=== PATIENT | female | born 2005 | race Caucasian/White ===

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

== ENCOUNTER 2023-04-19 18:12 | Emergency (ER) | payer OTHER ==
--- OUTSIDE RECORDS SUMMARY | 2023-04-19 18:16 | XMS REPORT | Continuity of Care Document ---
:2005 Author Organization [facility] t Address [address] [place] [address] [place] [id number] Care Team Providers Name Role Phone SARMIENTOCLARE Miranda Elias Primary Care Physician Unavailable AURA ATKINSON Attending Clinician Unavailable Aura Atkinson MD Attending Clinician Farhat Page Attending Clinician FARHAT LEMA Attending Clinician Unavailable AURA ATKINSON Admitting Clinician Unavailable Payers Payer Name Policy Type Policy Number Effective Date Expiration Date Critical access hospital [id number] 2021 CHOICE MEDICAID 00:00:00 Problems Condition Condition Condition Status Onset Resolution Last Treating Co mments Source Name Details Category Date Date Treatment Clinician Date No known No known Disease Unive rs active active ity of problems problems [facility] Allergies, Adverse Reactions, Alerts Allergy Allergy Status Severity Reaction(s) Onset Inactive Treating Comm ents Source Name Type Date Date Clinician NO KNOWN Drug Active Univers ALLERGIE Class ity of [facility] Social History Social Habit Start Date Stop Date Quantity Comments Source Exposure to 2021-11-06 2021-11-16 Not sure [facility] SARS-CoV-2 (event) 00:00:00 21:37:00 Medica l Branch Sex Assigned At [birth year] [facility] 00:00:00 00:00:00 Medical Branch Smoking Status Start Date Stop Date Source Unknown if ever smoked [facility] Medications Ordered Filled Start Stop Current Ordering Indication Dosage Frequency Signature Comments Components Source Medication Medication Date Date Medication? Clinician (SIG) Name Name lidocaine No 10mL 10 mL, Unive rs 2% viscous 11-17 Oral, ity of (LIDOCAINE 07:15: 06:09 ONCE, 1 [place] as VISCOUS) 2 00 :00 dose, On Medic al % solution [place] [facility] 10 mL 11/17/21 at 0215, ANAT iopamidol No [id number] 120mL 120 mL, Univers (ISOVUE 11-17 Intravenou ity o f 370-500 mL) 06:15: 05:06 s, ONCE, 1 [place] injection 00 :00 dose, On Medica l 120 mL [place] [facility] 11/17/21 at 0115, Routine FENTanyl PF No 50ug 50 mcg, Un janie (SUBLIMAZE 11-17 Slow IV ity o f (PF)) 05:30: 04:38 Push, [place] injection 00 :00 ONCE, 1 Medical 50 mcg dose, On Branch [place] 11/17/21 at 0030, Routine cefTRIAXone No 1000mg 1,000 mg, Univers (ROCEPHIN) 11-17 IV ity of 1,000 mg in 05:30: 06:10 Piggyback, [place] NaCl 0.9% 00 :00 ONCE, 1 Medical (NS) 50 mL dose, On Bran h MINI-BAG [place] 11/17/21 at 0030, Administer over 30 Minutes, 50 mL
Reas on for Anti-Infec tive: Documented Infection< br>Documen ru Infection Site: Urine<br&g t;Duration of Therapy: Other (see Comments) ondansetron 2021- No 4mg 4 mg, Slow Univers (ZOFRAN 11-17 IV Push, ity of (PF)) 05:00: 03:59 ONCE, 1 [place] injection 4 00 :00 dose, On Medi vanessa mg [place] [facility] 11/17/21 at 0000, ANAT ketorolac 2021- No 30mg 30 mg, Unive rs (TORADOL) 5- 05-26 Slow IV ity of injection 04:45: 03:46 Push, [place] 30 mg 00 :00 ONCE, 1 Medical dose, On Branch Sun11/16/21 at 2345, Routine
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 ondansetron Yes [id number] 4mg Take 1 Univers (ZOFRAN) 4 5-26 tablet by ity of mg tablet 00:00: mouth [place] 00 every 8 Medical (eight) Branch hours as needed for Nausea and Vomiting (N/V). dicyclomine Yes [id number] 20mg Take 1 Univers 20 mg 5-26 tablet by ity of tablet 00:00: mouth [place] 00 every 6 Medical (six) Branch hours as needed for Abdominal pain. amoxicillin 0 Yes [id number] 1{tbl} Take 1 Univers -clavulanat 5-26 tablet by ity of e 875-125 00:00: mouth [place] mg per 00 every 12 Medical tablet (twelve) Branch hours. doxycycline 0 2020- No 100mg 100 mg, U nivers hyclate 08-08-14 Oral, ity of (Vibramycin 01:45: 00:40 ONCE, [...] mg 00 :00 1 dose, Medical Sat Branch 08/07/20 at 1945, ANAT
Re ason for Anti-Infec tive: Documented Infection< br>Documen ru Infection Site: Pelvic
Duration of Therapy: 7 days ondansetron 2020- No 4mg 4 mg, Univ ers (ZOFRAN-ODT 08-08 Oral, ity of ) 01:15: 00:20 ONCE, 1 [place] disintegrat 00 :00 dose, Sat Med ical ing tablet 08/07/20 at [facility] nc 4 mg 1915, Routine dicyclomine 2020- [...] Medical 08/07/20 at Branch 1730, STAT ondansetron 2020- No 4mg 4 mg, Slow Univers (ZOFRAN 2-13 -13 IV Push, ity of (PF)) 23:30: 23:30 [...] dose, 08/07/20 at 1630, ANAT ondansetron Yes [id number] 4mg Take 1 Univers (ZOFRAN 2-13 tablet by ity of ODT) 4 mg 00:00: mouth [place] disintegrat 00 every 8 Medic al ing tablet (eight) Branch hours as needed for Nausea and Vomiting (N/V). ondansetron Yes [id number] 4mg Take 1 Univers (ZOFRAN 2-13 tablet by ity of ODT) 4 mg 00:00: mouth [place] disintegrat 00 every 8 Medic al ing tablet (eight) Branch hours as needed for Nausea and Vomiting (N/V). doxycycline 2020- No [id number] 100mg Take 1 Univers hyclate 100 08-07 capsule by i ty of mg capsule 00:00: 05:59 mouth 2 [place]areem as 00 :00 (two) Medical times [place] daily for 14 days. Vital Signs Vital Name Observation Time Observation Value Comments Source Systolic blood 2021-11-17 06:00:00 143 mm[Hg] Univer sity [facility] Diastolic blood 2021-11-17 06:00:00 96 [facility]Hg[facility] Heart rate 2021-11-17 06:00:00 87 /min Universi ty [facility] Respiratory rate 2021-11-17 06:00:00 18 /min [facility] Oxygen saturation in 2021-11-17 06:00:00 99 /min [facility] Arterial blood by [facility] Pulse oximetry Branch Body temperature 2021-11-17 02:41:00 37.06 Reina [facility] Body height 2021-11-17 02:41:00 154.9 cm Universi ty [facility] Body weight 2021-11-17 02:41:00 68.04 kg Universi ty [facility] BMI 2021-11-17 02:41:00 28.34 kg/m2 Universi ty [facility] Body mass index 2021-11-17 02:41:00 91.87 % Unive rsity of (BMI) [Percentile] [facility] ica Per age and sex Branch Oxygen saturation in 2020-08-07 23:15:00 100 /min University of Arterial blood by [facility] Pulse oximetry Branch Systolic blood 2020-08-07 23:15:00 123 mm[Hg] Univer sity of pressure [facility] Diastolic blood 2020-08-07 23:15:00 92 mm[Hg] Unive rsity of pressure [facility] Heart rate 2020-08-07 23:15:00 79 /min Universi ty [facility] Respiratory rate 2020-08-07 23:15:00 20 /min Univ ersity [facility] Body temperature 2020-08-07 22:13:00 36.67 Reina [facility] ersity of [facility] Body weight 2020-08-07 22:13:00 66.679 kg Universi ty [facility] Oxygen saturation in 2020-08-07 23:15:00 100 /min University of Arterial blood by [facility] Pulse oximetry Branch Systolic blood 2020-08-07 23:15:00 123 mm[Hg] Univer sity of pressure [facility] Diastolic blood 2020-08-07 23:15:00 92 mm[Hg] Unive rsity of pressure [facility] Heart rate 2020-08-07 23:15:00 79 /min Universi ty [facility] Respiratory rate 2020-08-07 23:15:00 20 /min Univ ersity [facility] Body temperature 2020-08-07 22:13:00 36.67 Reina [facility] ersity of [facility] Body weight 2020-08-07 22:13:00 66.679 kg Universi ty [facility] Procedures Procedure Date / Time Performed Performing Clinician Sourc e CT ABDOMEN PELVIS W 2021-11-17 05:08:00 Aura Atkinson Univers ity of [facility] CBC WITH DIFF 2021-11-17 03:58:00 Aura Atkinson [facility] URINALYSIS 2021-11-17 03:39:00 Aura Atkinson [facility] POCT TEST 2021-11-17 03:39:00 uAra Atkinson [facility] Medical [place] LIPASE 2021-11-17 03:11:00 Aura Atkinson [facility] COMP. METABOLIC PANEL 2021-11-17 03:11:00 Aura Atkinson [facility] ([id number]) Medical Branch EBV-MONONUCLEOSIS 2021-11-17 03:11:00 Aura Atkinson [facility] SCREEN [facility] RAPID STREP SCREEN FOR 2021-11-17 03:11:00 [facility] [place] RAPID INFLUENZA A/B 2021-11-17 03:11:00 Aura Atkinson [facility] COVID-19 (ID NOW RAPID 2021-11-17 03:11:00 Aura Atkinson [facility] TESTING) Medical Branch NOTICE OF PRIVACY 2021-11-17 02:28:47 Doctor Unassigned, No [facility] PRACTICES Name Medical [place] CONSENT/REFUSAL FOR 2021-11-17 02:27:24 Doctor Unassigned, No [facility] DIAGNOSIS AND Name Medical Branch TREATMENT URINALYSIS 2020-08-07 23:45:00 Farhat Lema [facility] CT ABDOMEN PELVIS W 2020-08-07 23:32:36 Farhat Lema [facility] CONTRAST [facility] Branch LIPASE 2020-08-07 22:36:00 Farhat Lema [facility] TEST, SERUM 2020-08-07 22:36:00 Farhat Lema [facility] HEPATIC FUNCTION PANEL 2020-08-07 22:36:00 Farhat Lema [facility] ([id number]) Medical Branch (ALB,T.PRO,BILI T,BU/BC,ALT,AST,ALK PHOS) BASIC METABOLIC PANEL 2020-08-07 22:36:00 Farhat Lema [facility] (NA, K, CL, CO2, Medical Branch GLUCOSE, BUN, CREATININE, CA) CBC WITH DIFF 2020-08-07 22:36:00 Farhat Lema [facility] CONSENT/REFUSAL FOR 2020-08-07 22:03:28 Doctor Unassigned, No [facility] DIAGNOSIS AND Name [facility] TREATMENT NOTICE OF PRIVACY 2020-08-07 22:03:13 Doctor Unassigned, No Univ [facility] PRACTICES Name [facility] Branch Encounters Start End Encounter Admission Attending Care Care Encounter Source Date/Time Date/Time Type Type Clinicians Facility Department ID 2021-11-16 2021-11-17 [facility] [id number] Univers 21:36:00 [facility]23[facility] 2021-11-16 2021-11-17 Emergency [facility] [id number] Univers 21:36:00 01:23:00 Jose Raulmare [facility] [id number] ity [facility] [id number] [facility] [id number] [address] 2020-08-07 2020-08-07 Emergency [facility] [id number] 16:15:00 19:14:00 Farhat [place] [id number] [place] [id number] [place] [id number] 2020-08-07 2020-08-07 Emergency [facility] [id number] Univers 16:15:00 19:14:00 Farhat [place] [id number] i ty of [place] [id number] [facility] [id number] [address] 2020-08-07 2020-08-07 Emergency X [facility] ERT [id number] Univers 16:03:00 16:03:[address] [facility] Results Test Description Test Time Test Comments Results Result Comments Source CBC WITH DIFF 2021-11-17 04:50:00 Test Item Value Reference Range Interpretation Comme nts WBC (test code = 6690-2) See_Comment H [A utomated message] The system which ge nerated this result transmit ru reference range: 4.50 - 1 3.50 10*3/?L. The reference r bhavani was not used to interpr et this result as normal/abnor mal. RBC (test code = 789-8) See_Comment [Au tomated message] The system which ge nerated this result transmit ru reference range: 4.10 - 5 .10 10*6/?L. The reference r bhavani was not used to interpr et this result as normal/abnor mal. HGB (test code = 718-7) 12.9 g/dL 12.0-16.0 HCT (test code = 4544-3) 38.0 % 36.0-45.0 MCV (test code = 787-2) 90.9 fL 78.0-95.0 MCH (test code = 785-6) 30.9 pg 26.0-32.0 MCHC (test code = 786-4) 33.9 g/dL 32.0-36.0 RDW-SD (test code = 25251-3) 41.1 fL 38.5-49.0 RDW-CV (test code = 788-0) 12.2 % 11.5-14.0 PLT (test code = 777-3) See_Comment [Au tomated message] The system which ge nerated this result transmit ru reference range: 135 - 36 1 10*3/?L. The reference range was not used to interpret th is result as normal/abnormal . MPV (test code = 50585-6) 10.5 fL 9.4-13.3 NRBC/100 WBC (test code = See_Comment [ Automated message] The 0798972776) system which ge nerated this result transmit ru reference range: 0.0 - 10 .0 /100 WBCs. The reference r bhavani was not used to interpr et this result as normal/abnor mal. NRBC x10^3 (test code = <0.01 See_Comment [Au tomated message] The 7252838787) system which ge nerated this result transmit ru reference range: 10*3/?L. The reference range was not u sed to interpret this result as normal/abnormal . GRAN MAT (NEUT) % (test code 90.2 % = 770-8) IMM GRAN % (test code = 0.50 % 2968378523) LYMPH % (test code = 736-9) 3.5 % MONO % (test code = 5905-5) 5.6 % EOS % (test code = 713-8) 0.0 % BASO % (test code = 706-2) 0.2 % GRAN MAT x10^3(ANC) (test 17.61 10*3/uL 1.50-10.30 H code = 6792353936) IMM GRAN x10^3 (test code = 0.10 10*3/uL 0.00-0.06 H 5406626082) LYMPH x10^3 (test code = 0.68 10*3/uL 0.70-7.40 L 731-0) MONO x10^3 (test code = 1.09 10*3/uL 0.00-0.50 H 742-7) EOS x10^3 (test code = <0.03 0.00-0.40 711-2) BASO x10^3 (test code = 0.03 10*3/uL 0.00-0.10 704-7) BANDS (test code = Increased A 2656678004) Lab Interpretation (test Abnormal code = 33625-2) [facility] [id number] 03:39:00 Test Item Value Reference Range Interpretation Comments POCT PREG (test code = 1605) Negative On board controls acceptable with Positive C Line (test code = 3574) POCT PREG LOT # (test code = 3575) [id number] POCT PREG TEST DATE (test 04/24/23 code = 3576) Lab Interpretation (test code = Normal 59140-3) [facility]BV-MONONUCLEOSIS [id number] 03:34:37 Test Item Value Reference Range Interpretation Comments EBV Mononucleosis Screen (test code Negative Negative = 5972028805) Lab Interpretation (test code = Normal 73012-4) [facility]OLIC PAN[facility] ([id number])2021-11-17 03:34:17 Test Item Value Reference Range Interpretation Comments NA (test code = 137 mmol/L 135-145 1921312187) K (test code = 3.9 mmol/L 3.5-5.0 7827834712) CL (test code = 101 mmol/L 98-108 8229483815) CO2 TOTAL (test code = 23 mmol/L 23-31 4629367212) AGAP (test code = 2-16 3376190003) BUN (test code = 13 mg/dL 7-23 2146569609) GLUCOSE (test code = 121 mg/dL 70-110 H 3750514237) CREATININE (test code = 0.51 mg/dL 0.50-1.04 7186187494) TOTAL BILI (test code = 0.7 mg/dL 0.1-1.7 3480876164) CALCIUM (test code = 9.6 mg/dL 8.6-10.6 7476397122) T PROTEIN (test code = 8.0 g/dL 6.3-8.2 8539225917) ALBUMIN (test code = 4.9 g/dL 3.5-5.0 4899698184) ALK PHOS (test code = 105 U/L 34-122 1905180645) ALTv (test code = 24 U/L 5-35 1742-6) AST(SGOT) (test code = 30 U/L 13-40 2659827571) eGFR (test code = mL/min/1.73m2 2102556349) KELLIE (test code = KELLIE) Association of [...] or abnormalities in imaging tests). Lab Interpretation Abnormal (test code = 45345-4) [facility] 03:33:36 Test Item Value Reference Range Interpretation Comments LIPASE (test code = 4159084487) 16 U/L 0-220 Lab Interpretation (test code = Normal 32758-7) [facility] HospitalUrinalysis2021-02-14 00:11:00 Test Item Value Reference Range Interpretation Comments APPEARANCE (test code = Clear Clear 0439468123) COLOR (test code = Yellow Yellow 1816239154) PH (test code = 4.8-8.0 2113369767) SP GRAVITY (test code = 1.003-1.030 5097646596) GLU U QUAL (test code = Normal Normal 6311568299) BLOOD (test code = Negative Negative 7464388556) KETONES (test code = 5 mg/dL Negative A 8874987584) PROTEIN (test code = Negative Negative 2887-8) UROBILIN (test code = Normal Normal 8838432331) BILIRUBIN (test code = Negative Negative 0069474182) NITRITE (test code = Negative Negative 6171290988) LEUK PHILLIP (test code = Negative Negative 7244325877) RBC/HPF (test code = See_Comment [Autom ated message] 8675721943) The system [employer] generated this result transmitted ref erence range: 0 - 3 HP F. The reference range was not used to int erpret this result as normal/abnormal . WBC/HPF (test code = See_Comment [Autom ated message] 7768980453) The system [employer] generated this result transmitted ref erence range: 0 - 5 HP F. The reference range was not used to int erpret this result as normal/abnormal . BACTERIA (test code = Few Negative A 3914014731) MUCOUS (test code = Slight Negative LPF A 9494152895) SQ EPITH (test code = HPF 2812781689) Lab Interpretation (test Abnormal code = 00630-5) [facility] W [id number] 23:41:16 No acute abnormality in the abdomen [...] THORAX: The lungs bases are clear. No cardiomegaly.LIVER:No focal hepatic lesions. No biliary ductal dilation.GALLBLADDER AND BILIARY TREE: No biliary ductaldilation. No gallbladderwall thickening.SPLEEN: No splenomegaly.PANCREAS: No ductal dilation or masses.ADRENAL GLANDS: No adrenal nodules.KIDNEYS: No hydronephrosis, stones, or masses.PERITONEUM AND RETROPERITONEUM: No free air or fluid.LYMPH NODES: No lymphadenopathy.GI TRACT: No dilation or wall thickening. The appendix appears normal.PELVIS/BLADDER: The urinary bladder is moderate distended and unremarkable.The uterus and ovaries are normal. Both ovaries have multiple follicles butno adnexal massor free fluid seen. VESSELS: Unremarkable.BONES AND SOFT TISSUES: No suspicious lytic or sclerotic bony lesions.IMPRESSIONNo acute abnormality in the abdomen or pelvis to explain right lowerquadrant pain.[facility], Serum 2020-08-07 23:10:00 Test Item Value Reference Range Interpretation Comments PREG SERUM (test code Negative = 8347735758) KELLIE (test code = KELLIE) Less than 10 IU/L. ?If low titer or ectopic is suspected, resubmit specimen in 48-72 hours. [facility] (NA, K, CL, CO2, GLUCOSE, BUN, CREATININE, CA)2020-08-07 22:59:00 Test Item Value Reference Range Interpretation Comments NA (test code = 138 mmol/L 135-145 4400800466) K (test code = 4.6 mmol/L 3.5-5 1471888660) CL (test code = 100 mmol/L 98-108 2800467441) CO2 TOTAL (test code = 28 mmol/L 23-31 1869543654) AGAP (test code = 2-16 5617272840) BUN (test code = 15 mg/dL 7-23 7682587085) GLUCOSE (test code = 100 mg/dL 70-110 7506200983) CREATININE (test code = 0.75 mg/dL 0.5-1.04 2986026070) CALCIUM (test code = 9.9 mg/dL 8.6-10.6 9091042798) KELLIE (test code = KELLIE) Association of [...] tests). Lab Interpretation Normal (test code = 47857-4) [facility] Hospital[facility] Function Panel (ALB, T.PRO, BILI T, BU/BC, ALT, AST, ALK PHOS)2020-08-07 22:59:00 Test Item Value Reference Range Interpretation Comments TOTAL BILI (test code = 4287432496) 0.6 mg/dL 0.1-1.1 BILI UNCON (test code = 1822291444) 0.5 mg/dL 0.1-1.1 BILI CONJ (test code = 8618308269) 0.0 mg/dL 0-0.3 T PROTEIN (test code = 7785754260) 8.7 g/dL 6.3-8.2 H ALBUMIN (test code = 4617308779) 5.3 g/dL 3.5-5 H ALK PHOS (test code = 0968775730) 91 U/L 34-122 ALTv (test code = 1742-6) 10 U/L 5-35 AST(SGOT) (test code = 4327547414) 20 U/L 13-40 Lab Interpretation (test code = Abnormal 07476-9) [facility] HospitalLip[facility] [id number] 22:59:00 Test Item Value Reference Range Interpretation Comments LIPASE (test code = 0000975793) 40 U/L 0-220 Lab Interpretation (test code = Normal 28349-8) [facility] with [id number] 22:52:00 Test Item Value Reference Range Interpretation Comments WBC (test code = See_Comment [Automated message] 6690-2) The system [employer] generated this result transmitted ref erence range: 4.50 - 1 3.50 10*3/?L. The re ference range was not u sed to interpret this result as normal/abnor mal. RBC (test code = See_Comment [Automated message] 789-8) The system [employer] generated this result transmitted ref erence range: [...] RDW-SD (test code 40.4 fL 38.5-49 = 31821-4) RDW-CV (test code 12.4 % 11.5-14 = 788-0) PLT (test code = See_Comment [Automated message] 777-3) The system [employer] generated this result transmitted ref erence range: 135 - 36 1 10*3/?L. The re ference range was not u sed to interpret this result as normal/abnor mal. MPV (test code = 10.4 fL 9.4-13.3 10062-4) NRBC/100 WBC (test See_Comment [Automat ed message] code = 9412100439) The syste m which generated this result transmitted ref erence range: 0.0 - 10 .0 /100 WBCs. The refer ence range was not u sed to interpret this result as normal/abnor mal. NRBC x10^3 (test <0.01 See_Comment [Automated message] code = 3343931760) The syste m which generated this result transmitted ref erence range: 10*3/?L. The reference range was not used to interpr et this result as normal/abnormal . GRAN MAT (NEUT) % 61.7 % (test code = 770-8) IMM GRAN % (test 0.20 % code = 1543787669) LYMPH % (test code 31.9 % = 736-9) MONO % (test code 5.0 % = 5905-5) EOS % (test code = 0.9 % 713-8) BASO % (test code 0.3 % = 706-2) GRAN MAT 3.91 10*3/uL 1.5-10.3 x10^3(ANC) (test code = 3399512802) IMM GRAN x10^3 <0.03 0-0.06 (test code = 2570442724) LYMPH x10^3 (test 2.02 10*3/uL 0.7-7.4 code = 731-0) MONO x10^3 (test 0.32 10*3/uL 0-0.5 code = 742-7) EOS x10^3 (test 0.06 10*3/uL 0-0.4 code = 711-2) BASO x10^3 (test <0.03 0-0.1 code = 704-7) [facility]"
--- NOTE | 2023-04-19 18:44 | EDPHYS ---
Physician Documentation [facility] Name: Roxann Henriquez Age: 17 yrs Sex: Female : 2005 Arrival Date: 04/19/2023 Time: 18:12 Bed IW3 Private MD: ED Physician Micky Mathis HPI: 04/19 18:37 This 17 yrs old Female presents to ER via Unassigned with complaints of Nausea. cp 18:37 The patient presents to the emergency department with nausea, with "dry heaves", cp vomiting, that is intermittent. Onset: The symptoms/episode began/occurred this morning, upon awakening, now resolved. Possible causes: unknown, negative home test, has had COVID in the past and did not have similar symptoms. Associated signs and symptoms: Pertinent negatives: abdominal pain, diarrhea, fever, GI bleeding, cough, sore throat. Severity of symptoms: in the emergency department the symptoms have resolved and did so earlier today. Patient reports she called into work and is required to have note for work. 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 - Social history:: Smoking status: Patient reports the use of cigarette tobacco products, denies chronic smoking, but will smoke occasionally. ROS: 18:39 Eyes: Negative for injury, pain, redness, and discharge, cp 18:39 Constitutional: Negative for body aches, chills, fever, 18:39 ENT: Negative for drainage from ear(s), ear pain, sore throat, difficulty swallowing, difficulty handling secretions, 18:39 Respiratory: Negative for cough, shortness of breath, wheezing, 18:39 Abdomen/GI: Positive for nausea and vomiting, Negative for abdominal pain, diarrhea, constipation, 18:39 Neuro: Negative for altered mental status, dizziness, headache, weakness, 18:39 All other systems are negative, Exam: 18:41 Head/Face: Normocephalic, atraumatic. cp 18:41 Constitutional: The patient appears in no acute distress, alert, awake, comfortable, non-toxic, well developed, well nourished, 18:41 Eyes: Periorbital structures: appear normal, Conjunctiva: normal, no exudate, no injection, Sclera: no appreciated abnormality, Lids and lashes: appear normal, bilaterally, 18:41 ENT: External ear(s): are unremarkable, Nose: is normal, Mouth: Lips: moist, Oral mucosa: pink and intact, moist, Posterior pharynx: is normal, airway is patent, no erythema, no exudate, 18:41 Chest/axilla: Inspection: normal, 18:41 Cardiovascular: Rate: normal, Rhythm: regular, 18:41 Respiratory: the patient does not display signs of respiratory distress, Respirations: normal, no use of accessory muscles, no retractions, labored breathing, is not present, Breath sounds: are clear throughout, no decreased breath sounds, no stridor, no wheezing, 18:41 Abdomen/GI: Exam negative for discomfort, distension, guarding, Inspection: abdomen appears normal, 18:41 Back: pain, is absent, ROM is normal, Vital Signs: 18:36 Resp 17; Weight 68.04 kg; Height 5 ft. 2 in. ; Pain 0/10; ph 18:38 BP 131 / 81; Pulse 91; Resp 17; Temp 99; Pulse Ox 99% ; Pain 0/10; ph 18:36 Body Mass Index 27.44 (68.04 kg, 157.48 cm) - Percentile 88.2 % ph 18:36 Pain Scale: Adult ph 18:38 Pain Scale: Adult ph MDM: 18:40 Patient medically screened. paola 18:40 Differential diagnosis: Nonspecific abd pain, gastritis, cholecystitis, appendicitis, cp viral gastroenteritis, gastroenteritis. 18:42 Data reviewed: vital signs, nurses notes. cp 18:42 Counseling: I had a detailed discussion with the patient and/or guardian regarding the cp historical points, exam findings, and any diagnostic results supporting the discharge/admit diagnosis, to return to the emergency department if symptoms worsen or persist or if there are any questions or concerns that arise at home. Administered Medications: No medications were administered Disposition Summary: 04/19/23 18:43 Discharge Ordered Notes: Location: Home cp Problem: new cp Symptoms: have improved cp Condition: Stable cp Diagnosis - Nausea with vomiting, unspecified cp Followup: cp - With: Private Physician - When: 1 - 2 days - Reason: Worsening of condition Discharge Instructions: - Discharge Summary Sheet ph - Nausea and Vomiting, Adult cp - Form - Excuse from Work, School, or Physical Activity cp Forms: - Work release form ph - Medication Reconciliation Form cp - Thank You Letter cp - Antibiotic Education cp - Prescription Opioid Use cp - Patient Portal Instructions cp - Leadership Thank You Letter cp Prescriptions: - Zofran 4 mg Oral tablet - take 1 tablet ORAL route every 12 hours As needed; 10 tablet; Refills: 0, cp Product Selection Permitted Signatures: Micky Mathis MD MD cha Hall, Patricia, RN RN ph Micky Echeverria, PA PA cp
--- NOTE | 2023-04-19 18:44 | ER ---
Nurse's Notes [facility] Name: Roxann Henriquez Age: 17 yrs Sex: Female : 2005 Arrival Date: 04/19/2023 Time: 18:12 Bed IW3 Private MD: Diagnosis: Nausea with vomiting, unspecified Presentation: 04/19 18:36 Chief complaint: Patient states: N/V, sweaty this morning. Had to call into work. Needs ph a excuse. Coronavirus screen: Vaccine status: Patient reports being unvaccinated. Client denies travel out of the [place] in the last 14 days. At this time, the client does not indicate any symptoms associated with coronavirus-19. Ebola Screen: Patient denies travel to an Ebola-affected area in the 21 days before illness onset. Initial Sepsis Screen: Does the patient meet any 2 criteria? No. Patient's initial sepsis screen is negative. Does the patient have a suspected source of infection? No. Patient's initial sepsis screen is negative. Risk Assessment: Do you want to hurt yourself or someone else? Patient reports no desire to harm self or others. Onset of symptoms was April 19, 2023. 18:36 Method Of Arrival: Ambulatory ph 18:36 Acuity: PAULETTE 5 ph Triage Assessment: 18:50 General: Appears in no apparent distress. Behavior is calm, cooperative, appropriate ll1 for age. Pain: Denies pain. GI: Reports nausea, vomiting. 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 - Social history:: Smoking status: Patient reports the use of cigarette tobacco products, denies chronic smoking, but will smoke occasionally. Screenin:50 [facility] ED Fall Risk Assessment (Adult) Score/Fall Risk Level 0 - 2 = Low Risk ll1 Oriented to surroundings, Maintained a safe environment, Educated pt \T\ family on fall prevention, incl call for assistance when getting out of bed, Hourly rounding (assess needs \T\ fall precautionary measures) done. Abuse screen: Denies threats or abuse. Nutritional screening: No deficits noted. Tuberculosis screening: No symptoms or risk factors identified. Assessment: 18:50 GI: Abdomen is flat. ll1 Vital Signs: 18:36 Resp 17; Weight 68.04 kg; Height 5 ft. 2 in. ; Pain 0/10; ph 18:38 BP 131 / 81; Pulse 91; Resp 17; Temp 99; Pulse Ox 99% ; Pain 0/10; ph 18:36 Body Mass Index 27.44 (68.04 kg, 157.48 cm) - Percentile 88.2 % ph 18:36 Pain Scale: Adult ph 18:38 Pain Scale: Adult ph ED Course: 18:14 Patient arrived in ED. mr 18:21 Micky Echeverria PA is PHCP. cp 18:21 Micky Mathis MD is Attending Physician. cp 18:37 Triage completed. ph 18:39 Arm band placed on. ph 18:50 Patient has correct armband on for positive identification. Bed in low position. ll1 Provided Education on: n/a. 18:50 No provider procedures requiring assistance completed. Patient did not have IV access ll1 during this emergency room visit. Administered Medications: No medications were administered Medication: 18:51 VIS not applicable for this client. ll1 Outcome: 18:43 Discharge ordered by MD. cp 18:50 Discharged to home ambulatory, ll1 18:50 Condition: stable 18:50 Discharge instructions given to patient, Instructed on discharge instructions, follow up and referral plans. medication usage, Demonstrated understanding of instructions, follow-up care, medications, Prescriptions given X 1, 18:51 Patient left the ED. ll1 Signatures: Katie Campa, Reg Reg mr Leslie Rico RN RN ph Micky Echeverria PA PA cp Lewis, Lynsay RN RN ll1 Corrections: (The following items were deleted from the chart) 18:39 18:38 Pulse 94bpm; Resp 17bpm; Pulse Ox 99%; Temp 99F; Pain 0/10, Adult; ph ph
[2023-04-19 19:28] VITALS: BP 131/81; TEMP 99; O2SAT 99
== END 2023-04-19 18:51 | disposition home or self-care (01) ==
LOC: ER 18:12
DX: R11.2 Nausea with vomiting, unspecified (principal); F17.210 Nicotine dependence, cigarettes, uncomplicated; Z86.16 Personal history of COVID-19

== ENCOUNTER → 2023-06-21 | Emergency (ER) | payer OTHER ==
[~2023-06-21] MED LIST: KETOROLAC 30 MG/ML INJ ONE; NA CHLORIDE 0.9% 1,000 ML ONE
--- OUTSIDE RECORDS SUMMARY | 2023-06-21 15:34 | XMS REPORT | Continuity of Care Document ---
Author Name Unknown Address [address] [facility] [address] [place] [address] [facility] Address [address] [facility] [place] [address] Care Team Providers Care Flight Crew Ordnanceman Name Role Phone CLARE SARMIENTO Primary Care Physician Unavailab CELIA Flores Attending Clinician Unavailable Celia Atkinson MD Attending Clinician Summer Page Attending Clinician [phone] SUMMER LEMA Attending Clinician Unavailable CELIA ATKINSON Admitting Clinician Unavailable Payers Payer Name Policy Type Policy Number Effective Date Expirati on Date Source [facility] MEDICAID [id number] 2021 00:00:00 Problems Condition Name Condition Details Condition Category Status Onset Date Resolution Date Last Treatment Date Treating Clinician Comments Source No known active problems No known active problems Disease [facility] Allergies, Adverse Reactions, Alerts Allergy Name Allergy Type Status Severity Reaction(s) Onset Date Inactive Date Treating Clinician Comments Source NO KNOWN ALLERGIE S Drug Class Active [facility] Social History Social Habit Start Date Stop Date Quantity Comments Source Exposure to SARS-CoV-2 (event) 2021-11-06 00:00:00 2021-11-16 21:37:00 Not sure [facility] Sex Assigned At 2005 00:00:00 2005 00:00:00 [facility] Smoking Status Start Date Stop Date Source Unknown if ever smoked [facility] Medications Ordered Medication Name Filled Medication Name Start Date Stop Date Current Medication? Ordering Clinician Indication Dosage Frequency Signature (SIG) Comments Components Source lidocaine 2% viscous (LIDOCAINE VISCOUS) 2 % solution 10 mL 11-17 07:15: 00 11-17 06:09 :00 No 10mL 10 mL, Oral, ONCE, 1 dose, On Marium 11/17/21 at 0215, ANAT [facility] iopamidol (ISOVUE 370-500 mL) injection 120 mL 11-17 06:15: 00 11-17 05:06 :00 No [id number] 120mL 120 mL, Intravenou s, ONCE, 1 dose, On Marium 11/17/21 at 0115, Routine [facility] FENTanyl PF (SUBLIMAZE (PF)) injection 50 mcg 11-17 05:30: 00 11-17 04:38 :00 No 50ug 50 mcg, Slow IV Push, ONCE, 1 dose, On Marium 11/17/21 at 0030, Routine [facility] cefTRIAXone (ROCEPHIN) 1,000 mg in NaCl 0.9% (NS) 50 mL MINI-BAG 11-17 05:30: 00 11-17 06:10 :00 No 1000mg 1,000 mg, IV Piggyback, ONCE, 1 dose, On Marium 11/17/21 at 0030, Administer over 30 Minutes, 50 mL
Reas on for Anti-Infec tive: Documented Infection< br>Documen ru Infection Site: Urine
D uration of Therapy: Other (see Comments) [facility] ondansetron (ZOFRAN (PF)) injection 4 mg 11-17 05:00: 00 11-17 03:59 :00 No 4mg 4 mg, Slow IV Push, ONCE, 1 dose, On Marium 11/17/21 at 0000, ANAT [facility] ketorolac (TORADOL) injection 30 mg 11-17 04:45: 00 11-17 03:46 :00 No 30mg 30 mg, Slow IV Push, ONCE, 1 dose, On Sun11/16/21 at 2345, Routine
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 NaCl 0.9% (NS) IV infusion 1,000 mL 11-17 04:15: 00 Yes 1000mL at 999 mL/hr, Intravenou s, CONTINUOUS , Starting on Sun11/16/21 at 2315, Until Discontinu ed, Routine [facility] lidocaine 2% viscous 2 % solution 11-17 00:00: 00 Yes [id number] 15mL Take 15 mL by mouth every 4 (four) hours as needed for Local anesthesia or Oral mucosal pain. [facility] ondansetron (ZOFRAN) 4 mg tablet 11-17 00:00: 00 Yes [id number] 4mg Take 1 tablet by mouth every 8 (eight) hours as needed for Nausea and Vomiting (N/V). [facility] dicyclomine 20 mg tablet 11-17 00:00: 00 Yes [id number] 20mg Take 1 tablet by mouth every 6 (six) hours as needed for Abdominal pain. [facility] amoxicillin -clavulanat e 875-125 mg per tablet 11-17 00:00: 00 Yes [id number] 1{tbl} Take 1 tablet by mouth every 12 (twelve) hours. [facility] doxycycline hyclate (Vibramycin ) capsule 100 mg 08-08 01:45: 00 08-08 00:40 :00 No 100mg 100 mg, Oral, ONCE, 1 dose, 08/07/20 at 1945, ANAT
Re ason for Anti-Infec tive: Empiric Therapy for Suspected Infection< br>Empiric Therapy Site: Pelvic
Duration of therapy: [address] [facility] cefTRIAXone (ROCEPHIN) injection 500 mg 08-08 01:45: 00 08-08 00:40 :00 No 500mg 500 mg, Intramuscu lar, ONCE, 1 dose, 08/07/20 at 1945, ANAT
Re ason for Anti-Infec tive: Documented Infection< br>Documen ru Infection Site: Pelvic
Duration of Therapy: [address] [facility] ondansetron (ZOFRAN-ODT ) disintegrat ing tablet 4 mg 08-08 01:15: 00 08-08 00:20 :00 No 4mg 4 mg, Oral, ONCE, 1 dose, 08/07/20 at 1915, Routine [facility] dicyclomine (BENTYL) tablet 20 mg 08-08 01:15: 00 08-08 00:20 :00 No 20mg 20 mg, Oral, ONCE NOW, 1 dose, 08/07/20 at 1915, ANAT [facility] ketorolac (TORADOL) injection 30 mg 08-08 01:15: 00 08-08 00:20 :00 No 30mg 30 mg, Slow IV Push, ONCE, 1 dose, 08/07/20 at 1915, ANAT
Fa culty member approving Restricted medication : EMERGENCY ROOM, [facility] iohexol (OMNIPAQUE 350 BULK-100 mL) injection 100 mL 08-07 23:45: 00 08-07 23:25 :00 No 100mL 100 mL, Intravenou s, ONCE, 1 dose, 08/07/20 at 1745, Routine [facility] morpHINE injection 4 mg 08-07 23:30: 00 08-07 23:12 :00 No 4mg 4 mg, Slow IV Push, ONCE, 1 dose, 08/07/20 at 1730, STAT [facility] ondansetron (ZOFRAN (PF)) injection 4 mg 08-07 23:30: 00 08-07 23:30 :00 No 4mg 4 mg, Slow IV Push, ONCE, 1 dose, 08/07/20 at 1730, ANAT [facility] NaCl 0.9% (NS) bolus infusion 1,000 mL 08-07 22:30: 00 08-08 00:57 :00 No 1000mL at 999 mL/hr, 1,000 mL, IV Infusion, ONCE, 1 dose, 08/07/20 at 1630, ANAT [facility] ondansetron (ZOFRAN ODT) 4 mg disintegrat ing tablet 08-07 00:00: 00 Yes [id number] 4mg Take 1 tablet by mouth every 8 (eight) hours as needed for Nausea and Vomiting (N/V). [facility] ondansetron (ZOFRAN ODT) 4 mg disintegrat ing tablet 08-07 00:00: 00 Yes [id number] 4mg Take 1 tablet by mouth every 8 (eight) hours as needed for Nausea and Vomiting (N/V). [facility] doxycycline hyclate 100 mg capsule 08-07 00:00: 00 08-22 05:59 :00 No [id number] 100mg Take 1 capsule by mouth 2 (two) times daily for [address] [facility] Vital Signs Vital Name Observation Time Observation Value Comments S ource Systolic blood pressure 2021-11-17 06:00:00 143 mm[Hg] [facility] Diastolic blood pressure 2021-11-17 06:00:00 96 mm[Hg] [facility] Heart rate 2021-11-17 06:00:00 87 /min [facility] Respiratory rate 2021-11-17 06:00:00 18 /min [facility] Oxygen saturation in Arterial blood by Pulse oximetry 2021-11-17 06:00:00 99 /min [facility] Body temperature 2021-11-17 02:41:00 37.06 Reina [facility] Body height 2021-11-17 02:41:00 154.9 cm [facility] Body weight 2021-11-17 02:41:00 68.04 kg [facility] BMI 2021-11-17 02:41:00 28.34 kg/m2 [facility] Body mass index (BMI) [Percentile] Per age and sex 2021-11-17 02:41:00 91.87 % [facility] Oxygen saturation in Arterial blood by Pulse oximetry 2020-08-07 23:15:00 100 /min [facility] Systolic blood pressure 2020-08-07 23:15:00 123 mm[Hg] [facility] Diastolic blood pressure 2020-08-07 23:15:00 92 mm[Hg] [facility] Heart rate 2020-08-07 23:15:00 79 /min [facility] Respiratory rate 2020-08-07 23:15:00 20 /min [facility] Body temperature 2020-08-07 22:13:00 36.67 Reina [facility] Body weight 2020-08-07 22:13:00 66.679 kg [facility] Oxygen saturation in Arterial blood by Pulse oximetry 2020-08-07 23:15:00 100 /min [facility] Systolic blood pressure 2020-08-07 23:15:00 123 mm[Hg] [facility] Diastolic blood pressure 2020-08-07 23:15:00 92 mm[Hg] [facility] Heart rate 2020-08-07 23:15:00 79 /min [facility] Respiratory rate 2020-08-07 23:15:00 20 /min [facility] Body temperature 2020-08-07 22:13:00 36.67 Reina [facility] Body weight 2020-08-07 22:13:00 66.679 kg [facility] Procedures Procedure Date / Time Performed Performing Clinicia n Source CT ABDOMEN PELVIS W CONTRAST 2021-11-17 05:08:00 Celia Atkinson [facility] CBC WITH DIFF 2021-11-17 03:58:00 Celia Atkinson [facility] URINALYSIS 2021-11-17 03:39:00 Celia Atkinson [facility] POCT TEST 2021-11-17 03:39:00 Celia Atkinson [facility] LIPASE 2021-11-17 03:11:00 Nimisha [facility] COMP. METABOLIC PANEL (90436) 2021-11-17 03:11:00 Celia Atkinson [facility] EBV-MONONUCLEOSIS SCREEN 2021-11-17 03:11:00 Nimisha [facility] RAPID STREP SCREEN FOR GROUP A 2021-11-17 03:11:00 Nimisha [facility] RAPID INFLUENZA A/B 2021-11-17 03:11:00 Nimisha [facility] COVID-19 (ID NOW RAPID TESTING) 2021-11-17 03:11:00 Nimisha [facility] NOTICE OF PRIVACY PRACTICES 2021-11-17 02:28:47 Doctor Unassigned, [place] [facility] CONSENT/REFUSAL FOR DIAGNOSIS AND TREATMENT 2021-11-17 02:27:24 Doctor Unassigned, [place] [facility] URINALYSIS 2020-08-07 23:45:00 Carlos [facility] CT ABDOMEN PELVIS W CONTRAST 2020-08-07 23:32:36 Carlos [facility] LIPASE 2020-08-07 22:36:00 Carlos [facility] TEST, SERUM 2020-08-07 22:36:00 Carlos [facility] HEPATIC FUNCTION PANEL (41611) (ALB,T.PRO,BILI T,BU/BC,ALT,AST,ALK PHOS) 2020-08-07 22:36:00 Carlos [facility] BASIC METABOLIC PANEL (NA, K, CL, CO2, GLUCOSE, BUN, CREATININE, CA) 2020-08-07 22:36:00 Carlos [facility] CBC WITH DIFF 2020-08-07 22:36:00 Summer Lema [facility] CONSENT/REFUSAL FOR DIAGNOSIS AND TREATMENT 2020-08-07 22:03:28 Doctor Unassigned, [place] [facility] NOTICE OF PRIVACY PRACTICES 2020-08-07 22:03:13 Doctor Unassigned, [place] [facility] Encounters Start Date/Time End Date/Time Encounter Type Admission Type Attending [facility] Facility Care Department Encounter ID Source 2021-11-16 21:36:00 2021-11-17 01:23:00 Emergency X CELIA ATKINSON [facility] ERT [id number] [facility] 2021-11-16 21:36:00 2021-11-17 01:23:00 Emergency Celia Atkinson [facility] [id number] [facility] 2020-08-07 16:15:00 2020-08-07 19:14:00 Emergency Carlos [facility] [id number] 2020-08-07 16:15:00 2020-08-07 19:14:00 Emergency Carlos [facility] [id number] [facility] 2020-08-07 16:03:00 2020-08-07 16:03:00 Emergency X SUMMER LEMA [facility] ERT [id number] [facility] Results Test Description Test Time Test Comments Results Result Co mments Source [facility] [id number] 03:39:00* Test Item Value Reference Range Interpretation Comme nts POCT PREG (test code = 1605) Negative On board controls acceptable with C Line (test code = 3574) Positive POCT PREG LOT # (test code = 3575) [id number] POCT PREG TEST DATE ( test code = 3576) 04/24/23 Lab Interpretation (test cod e = 01801-9) Normal [facility]MONONUCLEOSIS [id number] 03:34:37* Test Item Value Reference Range Interpretation Comme nts EBV Mononucleosis Screen (te st code = 4569525843) Negative Negative Lab Interpretation (test cod e = 87428-3) Normal [facility]. METABOLIC PANEL (52922)2021-11-17 03:34:17* Test Item Value Reference Range Interpretation Comme nts NA (test code = 0829872041) 137 mmol/L 135-145 K (test code = 3080902511) 3.9 mmol/L 3.5-5.0 CL (test code = 9854966601) 101 mmol/L 98-108 CO2 TOTAL (test code = 7946607565) 23 mmol/L 23-31 AGAP (test code = 8689954237) 2-16 BUN (test code = 0956142487) 13 mg/dL 7-23 GLUCOSE (test code = 6978319651) 121 mg/dL 70-110 H CREATININE (test code = 9602878259) 0.51 mg/dL 0.50-1.04 TOTAL BILI (test code = 4081695694) 0.7 mg/dL 0.1-1.1 CALCIUM (test code = 7838069245) 9.6 mg/dL 8.6-10.6 T PROTEIN (test code = 8407790849) 8.0 g/dL 6.3-8.2 ALBUMIN (test code = 5138896803) 4.9 g/dL 3.5-5.0 ALK PHOS (test code = 4977432419) 105 U/L 34-122 ALTv (test code = 1742-6) 24 U/L 5-35 AST(SGOT) (test code = 3141435428) 30 U/L 13-40 eGFR (test code = 9574055561) mL/min/1.73m2 KELLIE (test code = KELLIE) Association of [...] or abnormalities in imaging tests). Lab Interpretation (test code = 95629-8) Abnormal [facility] 03:33:36* Test Item Value Reference Range Interpretation Comme nts LIPASE (test code = 7722480596) 16 U/L 0-220 Lab Interpretation (test cod e = 17527-3) Normal [facility]2021-02-14 00:11:00* Test Item Value Reference Range Interpretation Comme nts APPEARANCE (test code = 7351306977) Clear Clear COLOR (test code = 9093888934) Yellow Yellow PH (test code = 6150351010) 4.8-8.0 SP GRAVITY (test code = 8382815415) 1.003-1.030 GLU U QUAL (test code = 5315575865) Normal Normal BLOOD (test code = 3549635710) Negative Negative KETONES (test code = 2901046671) 5 mg/dL Negative A PROTEIN (test code = 2887-8) Negative Negative UROBILIN (test code = 6010413619) Normal Normal BILIRUBIN (test code = 5412446254) Negative Negative NITRITE (test code = 2610034650) Negative Negative LEUK PHILLIP (test code = 3408907939) Negative Negative RBC/HPF (test code = 6780849902) See_Comment [Automated messa ge] The system which generated this result transmitted reference range: 0 - 3 HPF. The reference range was not used to interpret this result as normal/abnormal. WBC/HPF (test code = 4862451347) See_Comment [Automated Intellisense] The system which generated this result transmitted reference range: 0 - 5 HPF. The reference range was not used to interpret this result as normal/abnormal. BACTERIA (test code = 8853215037) Few Negative A MUCOUS (test code = 2420631787) Slight Negative LPF A SQ EPITH (test code = 4254344517) HPF Lab Interpretation (test code = 28602-7) Abnormal [facility] P[facility] W [id number] 23:41:16No acute abnormality in the abdomen or pelvis [...] masses. PERITONEUM AND RETROPERITONEUM: No free air orfluid. LYMPH NODES: No lymphadenopathy. GI TRACT: No [...] lesions. No biliary ductal dilation.GALLBLADDER AND BILIARY TREE:No biliary ductal dilation. No gallbladderwall thickening.SPLEEN: No splenomegaly.PANCREAS: No ductal dilation or masses.ADRENAL GLANDS: No adrenal nodules.KIDNEYS: No hydronephrosis, stones, or masses.PERITONEUM AND RETROPERITONEUM: No free air or fluid.LYMPH NODES: No lymphadenopathy.GI TRACT: Nodilation or wall thickening. The appendix appears normal.PELVIS/BLADDER: The urinary bladder is moderate distended and unremarkable.The uterus and ovaries are normal. Both ovaries have multiple follicles butno adnexal mass or free fluid seen. VESSELS: Unremarkable.BONES AND SOFT TISSUES: No suspicious lytic or sclerotic bony lesions.IMPRESSIONNo acute abnormality in the abdomen or pelvis to explain right lowerquadrant pain.[facility]regnancy Test, Serum 2020-08-07 23:10:00* Test Item Value Reference Range Interpretation Comme nts PREG SERUM (test code = 0203460731) Negative KELLIE (test code = KELLIE) Less than 10 IU/L. ?If low titer or ectopic is suspected, resubmit specimen in 48-72 hours. [facility] Met[facility] Panel (NA, K, CL, CO2, GLUCOSE, BUN, CREATININE, CA)2020-08-07 22:59:00* Test Item Value Reference Range Interpretation Comme nts NA (test code = 0081980603) 138 mmol/L 135-145 K (test code = 1019107315) 4.6 mmol/L 3.5-5 CL (test code = 0368824281) 100 mmol/L 98-108 CO2 TOTAL (test code = 2801780862) 28 mmol/L 23-31 AGAP (test code = 6442602259) 2-16 BUN (test code = 4607432992) 15 mg/dL 7-23 GLUCOSE (test code = 4316280208) 100 mg/dL 70-110 CREATININE (test code = 7875838941) 0.75 mg/dL 0.5-1.04 CALCIUM (test code = 2234207124) 9.9 mg/dL 8.6-10.6 KELLIE (test code = KELLEI) Association of Glomerular Filtration Rate (GFR) and [...] or abnormalities in imaging tests). Lab Interpretation (test code = 64762-2) Normal [facility] Function Panel (ALB, T.PRO, BILI T, BU/BC, ALT, AST, ALK PHOS)2020-08-07 22:59:00* Test Item Value Reference Range Interpretation Comme nts TOTAL BILI (test code = 4263451657) 0.6 mg/dL 0.1-1.1 BILI UNCON (test code = 0428226280) 0.5 mg/dL 0.1-1.1 BILI CONJ (test code = 8754446374) 0.0 mg/dL 0-0.3 T PROTEIN (test code = 8383209056) 8.7 g/dL 6.3-8.2 H ALBUMIN (test code = 1821755137) 5.3 g/dL 3.5-5 H ALK PHOS (test code = 8538811257) 91 U/L 34-122 ALTv (test code = 1742-6) 10 U/L 5-35 AST(SGOT) (test code = 5749678643) 20 U/L 13-40 Lab Interpretation (test cod e = 27215-7) Abnormal [facility]wayLipase [id number] 22:59:00* Test Item Value Reference Range Interpretation Comme nts LIPASE (test code = 0032693026) 40 U/L 0-220 Lab Interpretation (test cod e = 44768-8) Normal [facility] with [id number] 22:52:00* Test Item Value Reference Range Interpretation Comme nts WBC (test code = 6690-2) See_Comment [Automated BookToura ge] The system which generated this result transmitted reference range: 4.50 - 13.50 10*3/?L. The reference range was not used to interpret this result as normal/abnormal. RBC (test code = 789-8) See_Comment [Automated BookToura ge] The system which generated this result transmitted reference range: 4.10 - 5.10 10*6/?L. The reference range was not used to interpret this result as normal/abnormal. HGB (test code = 718-7) 14.7 g/dL 12-16 HCT (test code = 4544-3) 44.3 % 36-45 MCV (test code = 787-2) 90.0 fL 78-95 MCH (test code = 785-6) 29.9 pg 26-32 MCHC (test code = 786-4) 33.2 g/dL 32-36 RDW-SD (test code = 99261-1) 40.4 fL 38.5-49 RDW-CV (test code = 788-0) 12.4 % 11.5-14 PLT (test code = 777-3) See_Comment [Automated BookToura ge] The system which generated this result transmitted reference range: 135 - 361 10*3/?L. The reference range was not used to interpret this result as normal/abnormal. MPV (test code = 93846-4) 10.4 fL 9.4-13.3 NRBC/100 WBC (test code = 9152940641) See_Comment [Automated me ssage] The system which generated this result transmitted reference range: 0.0 - 10.0 /100 WBCs. The reference range was not used to interpret this result as normal/abnormal. NRBC x10^3 (test code = 6896646711) <0.01 See_Comment [Automated me ssage] The system which generated this result transmitted reference range: 10*3/?L. The reference range was not used to interpret this result as normal/abnormal. GRAN MAT (NEUT) % (test code = 770-8) 61.7 % IMM GRAN % (test code = 2851917065) 0.20 % LYMPH % (test code = 736-9) 31.9 % MONO % (test code = 5905-5) 5.0 % EOS % (test code = 713-8) 0.9 % BASO % (test code = 706-2) 0.3 % GRAN MAT x10^3(ANC) (test code = 7355543360) 3.91 10*3/uL 1.5-10.3 IMM GRAN x10^3 (test code = 7751358792) <0.03 0-0.06 LYMPH x10^3 (test code = 731-0) 2.02 10*3/uL 0.7-7.4 MONO x10^3 (test code = 742-7) 0.32 10*3/uL 0-0.5 EOS x10^3 (test code = 711-2) 0.06 10*3/uL 0-0.4 BASO x10^3 (test code = 704-7) <0.03 0-0.1 [facility]"
[2023-06-21 16:49] LABS: Hematocrit 39.9 % (36.0-45.0)
[2023-06-21 16:50] LABS: Absolute Lymphocytes (CBC) 1.8 K/uL (0.7-4.9); Lymphocytes % 40.6 % (15.3-44.8); MCV 95.1 fL (80-100); MPV 8.5 fL (7.6-11.3); Platelets 235 thou/uL (152-406)
[2023-06-21 17:14] LABS: SARS-CoV-2 Antigen Rapid Res Negative (Negative)
[2023-06-21 18:20] LABS: Albumin 3.8 g/dL (3.4-5.0); Bilirubin Total 0.3 mg/dL (0.2-1.0); Protein, Total 7.2 g/dL (6.4-8.2)
--- NOTE | 2023-06-21 18:31 | ER ---
Nurse's Notes [facility] Name: Roxann Henriquez Age: 18 yrs Sex: Female : 2005 Arrival Date: 06/21/2023 Time: 15:31 Bed 10 Private MD: Diagnosis: Headache;Vomiting Presentation: 06/21 15:50 Chief complaint: Patient states: headache, congestion, nausea and 1 episode of vomiting cm10 X1 week. Pt states that this week she had a fall and hit her head. Coronavirus screen: Vaccine status: Patient reports being unvaccinated. Client denies travel out of the [place] in the last 14 days. Ebola Screen: Patient denies travel to an Ebola-affected area in the 21 days before illness onset. No symptoms or risks identified at this time. Initial Sepsis Screen: Does the patient meet any 2 criteria? No. Patient's initial sepsis screen is negative. Does the patient have a suspected source of infection? No. Patient's initial sepsis screen is negative. Risk Assessment: Do you want to hurt yourself or someone else? Patient reports no desire to harm self or others. Onset of symptoms was June 21, 2023. 15:50 Method Of Arrival: Ambulatory cm10 15:50 Acuity: PAULETTE 3 cm10 Triage Assessment: 16:41 General: Appears in no apparent distress. Behavior is calm, cooperative. 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 - Social history:: Smoking status: Reported history of juuling and/or vaping. Screenin:40 [facility] ED Fall Risk Assessment (Adult) History of falling in the last 3 months, tl4 including since admission No falls in past 3 months (0 pts) Confusion or Disorientation No (0 pts) Intoxicated or Sedated No (0 pts) Impaired Gait No (0 pts) Mobility Assist Device Used No (0 pt) Altered Elimination No (0 pt) Score/Fall Risk Level 0 - 2 = Low Risk Oriented to surroundings, Maintained a safe environment, Educated pt \T\ family on fall prevention, incl call for assistance when getting out of bed. Abuse screen: Denies threats or abuse. Denies injuries from another. Nutritional screening: No deficits noted. Tuberculosis screening: No symptoms or risk factors identified. Assessment: 16:39 Reassessment: No changes from previously documented assessment. Patient and/or family tl4 updated on plan of care and expected duration. Pain level reassessed. Patient is alert, oriented x 3, equal unlabored respirations, skin warm/dry/pink. Pain: Complains of pain in headache. Vital Signs: 15:50 BP 120 / 92; Pulse 90; Resp 18; Pulse Ox 97% on R/A; Weight 63.5 kg; Height 5 ft. 2 in. cm10 ; Pain 8/10; 15:54 Temp 97.6(O); cm10 16:39 BP 123 / 63; Pulse 81; Resp 16; Pulse Ox 99% on R/A; tl4 18:44 BP 112 / 63; Pulse 71; Resp 16; Pulse Ox 98% on R/A; tl4 15:50 Body Mass Index 25.61 (63.50 kg, 157.48 cm) - Percentile 81.4 % cm10 15:50 Pain Scale: Adult cm10 ED Course: 15:33 Patient arrived in ED. mg5 15:34 Keo Green MD is Attending Physician. ec2 15:52 Triage completed. cm10 15:53 Arm band placed on Patient placed in an exam room, on a stretcher. cm10 16:06 Yossi Martin is Primary Nurse. tl4 16:37 SARS RAPID Sent. tl4 16:37 Influenza Screen (a \T\ B) Sent. tl4 16:38 CMP Sent. tl4 16:38 CBC with Diff Sent. tl4 16:38 Inserted saline lock: 20 gauge in right hand, using aseptic technique. Blood collected. tl4 16:40 Patient has correct armband on for positive identification. Bed in low position. Call tl4 light in reach. Side rails up X 1. Provided Education on: ED process. Door closed. Lights dimmed. Warm blanket given. 16:41 No provider procedures requiring assistance completed. tl4 17:28 CMP Sent. tl4 18:45 IV discontinued, intact, bleeding controlled, No redness/swelling at site. Pressure tl4 dressing applied. Administered Medications: 16:38 Drug: NS 0.9% IV 1000 ml IV at 1 bolus Per protocol; 1000 mL bolus Route: IV; Rate: 1 tl4 bolus; Site: right hand; 18:47 Follow up: Response: No adverse reaction; IV Status: Completed infusion; IV Intake: tl4 1000ml 16:38 Drug: Ketorolac IVP 15 mg IVP once Route: IVP; Site: right hand; tl4 18:47 Follow up: Response: Pain is decreased tl4 Medication: 16:39 VIS not applicable for this client. tl4 Intake: 18:47 IV: 1000ml; Total: 1000ml. tl4 Outcome: 18:30 Discharge ordered by . ec2 18:46 Discharged to home ambulatory, tl4 18:46 Condition: stable 18:46 Discharge instructions given to patient, Instructed on discharge instructions, follow up and referral plans. medication usage, Demonstrated understanding of instructions, follow-up care, medications, 18:47 Patient left the ED. tl4 Signatures: Tomasa Dsouza RN RN cm10 Andie Silva mg5 Keo Green MD MD ec2 Yossi Martin tl4
--- NOTE | 2023-06-21 18:31 | EDPHYS ---
Physician Documentation [facility] Name: Roxann Henriquez Age: 18 yrs Sex: Female : 2005 Arrival Date: 06/21/2023 Time: 15:31 Bed 10 Private MD: ED Physician Keo Green HPI: 06/21 15:58 This 18 yrs old Female presents to ER via Ambulatory with complaints of Flu Symptoms. ec2 15:58 Patient arrives today for evaluation of URI signs and symptoms. Patient reports that he ec2 she is having cough and congestion as well as subjective fevers and chills. Patient reports no nausea or vomiting. She states that what specifically today that she started having some nausea and vomiting today. Denies any urinary complaints, denies any difficulty breathing. Patient also with complaints of general headache.. 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 - Social history:: Smoking status: Reported history of juuling and/or vaping. ROS: 15:58 Constitutional: as per hpi ec2 Exam: 15:58 Constitutional: GEN: NAD Head: atraumatic Eyes: EOMI Ears: External ears are ec2 normal. CV: regular rate LUNGS: no respiratory distress, no wheezes, no rales, no rhonchi ABD: non-distended SKIN: no evidence of rashes MSK: no evidence of trauma NEURO: moves all extremities equally Vital Signs: 15:50 BP 120 / 92; Pulse 90; Resp 18; Pulse Ox 97% on R/A; Weight 63.5 kg; Height 5 ft. 2 in. cm10 ; Pain 8/10; 15:54 Temp 97.6(O); cm10 16:39 BP 123 / 63; Pulse 81; Resp 16; Pulse Ox 99% on R/A; tl4 18:44 BP 112 / 63; Pulse 71; Resp 16; Pulse Ox 98% on R/A; tl4 15:50 Body Mass Index 25.61 (63.50 kg, 157.48 cm) - Percentile 81.4 % cm10 15:50 Pain Scale: Adult cm10 MDM: 15:40 Patient medically screened. ec2 15:58 Data reviewed: vital signs. ED course: Patient arrives today for evaluation of URI ec2 signs and symptoms. Examination remarkable for well-appearing nontoxic dividual is otherwise in no acute distress. Will obtain lab work, give the patient crystalloid, give the patient Reglan as well as Toradol. Currently considering viral infection, will suspicion for pneumonia. Additionally considering ANDREA, renal dysfunction, anemia. . 18:30 ED course: Metabolic profile is reassuring. On reassessment patient is well-appearing ec2 no acute distress. Will discharge home, return precautions given. Suspect viral process.. 06/21 15:57 Order name: CBC with Diff; Complete Time: 16:52 ec2 06/21 15:57 Order name: CMP; Complete Time: 18:30 ec2 06/21 15:57 Order name: Influenza Screen (a \T\ B); Complete Time: 17:19 ec2 06/21 15:57 Order name: SARS RAPID; Complete Time: 17:19 ec2 06/21 16:58 Order name: Labs - recollect needed: green top; Complete Time: 17:28 bc6 06/21 17:43 Order name: Labs - recollect needed: green top. inside lab will come draw.; Complete bc6 Time: 17:58 Administered Medications: 16:38 Drug: NS 0.9% IV 1000 ml IV at 1 bolus Per protocol; 1000 mL bolus Route: IV; Rate: 1 tl4 bolus; Site: right hand; 18:47 Follow up: Response: No adverse reaction; IV Status: Completed infusion; IV Intake: tl4 1000ml 16:38 Drug: Ketorolac IVP 15 mg IVP once Route: IVP; Site: right hand; tl4 18:47 Follow up: Response: Pain is decreased tl4 Disposition Summary: 06/21/23 18:30 Discharge Ordered Notes: Location: Home ec2 Condition: Stable ec2 Diagnosis - Headache ec2 - Vomiting ec2 Followup: ec2 - With: Private Physician - When: - Reason: Recheck today's complaints Discharge Instructions: - Discharge Summary Sheet ec2 Forms: - Work release form ec2 - Medication Reconciliation Form ec2 - Thank You Letter ec2 - Antibiotic Education ec2 - Prescription Opioid Use ec2 - Patient Portal Instructions ec2 - Leadership Thank You Letter ec2 Prescriptions: - Compazine 10 mg Oral Tablet - take 1 tablet ORAL route every 8 hours As needed; 20 tablet; Refills: 0, ec2 Product Selection Permitted Signatures: Dispatcher [employer] DONELL WatersJennie serrano 6 Tomasa Dsouza RN RN cm10 Keo Green MD MD ec2 Logdahl, Yossi tl4 Corrections: (The following items were deleted from the chart) 16:00 15:58 Patient arrives today for evaluation of URI signs and symptoms. Patient reports ec2 that he she is having cough and congestion as well as subjective fevers and chills. Patient reports no nausea or vomiting. She states that what specifically today that she started having some nausea and vomiting today. Denies any urinary complaints, denies any difficulty breathing. ec2
[2023-06-21 21:06] VITALS: BP 112/63; O2SAT 98
[2023-06-21 21:07] VITALS: TEMP 97.6
== END ==
LOC: ER 15:31
DX: R51.9 Headache, unspecified (principal); R11.10 Vomiting, unspecified; Z11.52 Encounter for screening for COVID-19
CPT/HCPCS: 96361; 85025; 36415; 80053; 87804 ×2; 96374; 99284; 87811; J7030

== ENCOUNTER 2024-07-09 23:54 | Emergency (ER) | payer OTHER, SELFPAY ==
--- OUTSIDE RECORDS SUMMARY | 2024-07-09 23:57 | XMS REPORT | Continuity of Care Document ---
Author Name Unknown Address [address] [facility] [address] [place] [address] [facility] Address [address] [facility] [place] [address] Care Team Providers [facility] Director Name Role Phone CLARE SARMIENTO Primary Care Physician Unavailab AURA Flores Attending Clinician Unavailable Aura Atkinson MD Attending Clinician Farhat Page Attending Clinician [phone] FARHAT LEMA Attending Clinician Unavailable AURA ATKINSON Admitting Clinician Unavailable Payers Payer Name Policy Type Policy Number Effective Date Expirati on Date Source [facility] MEDICAID [id number] 2021 00:00:00 Problems Condition Name Condition Details Condition Category Status Onset Date Resolution Date Last Treatment Date Treating Clinician Comments Source No known active problems No known active problems Disease [facility] Allergies, Adverse Reactions, Alerts Allergy Name Allergy Type Status Severity Reaction(s) Onset Date Inactive Date Treating Clinician Comments Source NO KNOWN ALLERGIE S Drug Class Active [facility] Social History Social Habit Start Date Stop Date Quantity Comments Source Exposure to SARS-CoV-2 (event) 2021-11-06 00:00:00 2021-11-16 21:37:00 Not sure [facility] Sex Assigned At 2005 00:00:00 2005 00:00:00 [facility] Smoking Status Start Date Stop Date Source Unknown if ever smoked [facility] Medications Ordered Medication Name Filled Medication Name Start Date Stop Date Current Medication? Ordering Clinician Indication Dosage Frequency Signature (SIG) Comments Components Source lidocaine 2% viscous (LIDOCAINE VISCOUS) 2 % solution 10 mL 11-17 07:15: 00 11-17 06:09 :00 No 10mL 10 mL, Oral, ONCE, 1 dose, On Marium 11/17/21 at 0215, ANAT [facility] iopamidol (ISOVUE 370-500 mL) injection 120 mL 11-17 06:15: 00 11-17 05:06 :00 No [id number] 120mL 120 mL, Intravenou s, ONCE, 1 dose, On Marium 11/17/21 at 0115, Routine [facility] FENTanyl PF (SUBLIMAZE (PF)) injection 50 mcg 11-17 05:30: 00 11-17 04:38 :00 No 50ug 50 mcg, Slow IV Push, ONCE, 1 dose, On Marium 11/17/21 at 0030, Routine [facility] cefTRIAXone (ROCEPHIN) 1,000 mg in NaCl 0.9% (NS) 50 mL MINI-BAG 11-17 05:30: 00 11-17 06:10 :00 No 1000mg 1,000 mg, IV Piggyback, ONCE, 1 dose, On Marium 11/17/21 at 0030, Administer over 30 Minutes, 50 mL
Reas on for Anti-Infec tive: Documented Infection< br>Documen ru Infection Site: Urine
D uration of Therapy: Other (see Comments) [facility] ondansetron (ZOFRAN (PF)) injection 4 mg 11-17 05:00: 00 11-17 03:59 :00 No 4mg 4 mg, Slow IV Push, ONCE, 1 dose, On Marium 11/17/21 at 0000, ANAT [facility] ketorolac (TORADOL) injection 30 mg 11-17 04:45: 00 11-17 03:46 :00 No 30mg 30 mg, Slow IV Push, ONCE, 1 dose, On Sun11/16/21 at 2345, Routine
member certification manager approving Restricted medication : AURA ATKINSON [facility] NaCl 0.9% (NS) IV infusion 1,000 mL 11-17 04:15: 00 Yes 1000mL at 999 mL/hr, Intravenou s, CONTINUOUS , Starting on Sun11/16/21 at 2315, Until Discontinu ed, Routine [facility] lidocaine 2% viscous 2 % solution 11-17 00:00: 00 Yes [id number] 15mL Take 15 mL by mouth every 4 (four) hours as needed for Local anesthesia or Oral mucosal pain. [facility] ondansetron (ZOFRAN) 4 mg tablet 11-17 00:00: 00 Yes [id number] 4mg Take 1 tablet by mouth every 8 (eight) hours as needed for Nausea and Vomiting (N/V). [facility] dicyclomine 20 mg tablet 11-17 00:00: 00 Yes [id number] 20mg Take 1 tablet by mouth every 6 (six) hours as needed for Abdominal pain. [facility] amoxicillin -clavulanat e 875-125 mg per tablet 11-17 00:00: 00 Yes [id number] 1{tbl} Take 1 tablet by mouth every 12 (twelve) hours. [facility] doxycycline hyclate (Vibramycin ) capsule 100 mg 08-08 01:45: 00 08-08 00:40 :00 No 100mg 100 mg, Oral, ONCE, 1 dose, 08/07/20 at 1945, ANAT
Re ason for Anti-Infec tive: Empiric Therapy for Suspected Infection< br>Empiric Therapy Site: Pelvic
Duration of therapy: 72 hours [facility] cefTRIAXone (ROCEPHIN) injection 500 mg 08-08 01:45: 00 08-08 00:40 :00 No 500mg 500 mg, Intramuscu lar, ONCE, 1 dose, 08/07/20 at 1945, ANAT
Re ason for Anti-Infec tive: Documented Infection< br>Documen ru Infection Site: Pelvic
Duration of Therapy: 7 days [facility] ondansetron (ZOFRAN-ODT ) disintegrat ing tablet 4 mg 08-08 01:15: 00 08-08 00:20 :00 No 4mg 4 mg, Oral, ONCE, 1 dose, 08/07/20 at 1915, Routine [facility] dicyclomine (BENTYL) tablet 20 mg 08-08 01:15: 00 08-08 00:20 :00 No 20mg 20 mg, Oral, ONCE NOW, 1 dose, 08/07/20 at 1915, ANAT [facility] ketorolac (TORADOL) injection 30 mg 08-08 01:15: 00 08-08 00:20 :00 No 30mg 30 mg, Slow IV Push, ONCE, 1 dose, 08/07/20 at 1915, ANAT
Fa culty member approving Restricted medication : EMERGENCY ROOM, [facility] iohexol (OMNIPAQUE 350 BULK-100 mL) injection 100 mL 08-07 23:45: 00 08-07 23:25 :00 No 100mL 100 mL, Intravenou s, ONCE, 1 dose, 08/07/20 at 1745, Routine [facility] morpHINE injection 4 mg 08-07 23:30: 00 08-07 23:12 :00 No 4mg 4 mg, Slow IV Push, ONCE, 1 dose, 08/07/20 at 1730, STAT [facility] ondansetron (ZOFRAN (PF)) injection 4 mg 08-07 23:30: 00 08-07 23:30 :00 No 4mg 4 mg, Slow IV Push, ONCE, 1 dose, 08/07/20 at 1730, ANAT [facility] NaCl 0.9% (NS) bolus infusion 1,000 mL 08-07 22:30: 00 08-08 00:57 :00 No 1000mL at 999 mL/hr, 1,000 mL, IV Infusion, ONCE, 1 dose, 08/07/20 at 1630, ANAT [facility] ondansetron (ZOFRAN ODT) 4 mg disintegrat ing tablet 08-07 00:00: 00 Yes [id number] 4mg Take 1 tablet by mouth every 8 (eight) hours as needed for Nausea and Vomiting (N/V). [facility] doxycycline hyclate 100 mg capsule 08-07 00:00: 00 08-22 05:59 :00 No [id number] 100mg Take 1 capsule by mouth 2 (two) times daily for 14 days. [facility] Vital Signs Vital Name Observation Time Observation Value Comments S ource Systolic blood pressure 2021-11-17 06:00:00 143 mm[Hg] [facility] Diastolic blood pressure 2021-11-17 06:00:00 96 mm[Hg] [facility] Heart rate 2021-11-17 06:00:00 87 /min [facility] acute hospital Respiratory rate 2021-11-17 06:00:00 18 /min [facility] Oxygen saturation in Arterial blood by Pulse oximetry 2021-11-17 06:00:00 99 /min [facility] Body temperature 2021-11-17 02:41:00 37.06 Reina [facility] Body height 2021-11-17 02:41:00 154.9 cm [facility] Body weight 2021-11-17 02:41:00 68.04 kg [facility] BMI 2021-11-17 02:41:00 28.34 kg/m2 [facility] Body mass index (BMI) [Percentile] Per age and sex 2021-11-17 02:41:00 91.87 % [facility] Systolic blood pressure 2020-08-07 23:15:00 123 mm[Hg] [facility] Diastolic blood pressure 2020-08-07 23:15:00 92 mm[Hg] [facility] Heart rate 2020-08-07 23:15:00 79 /min [facility] Respiratory rate 2020-08-07 23:15:00 20 /min [facility] Oxygen saturation in Arterial blood by Pulse oximetry 2020-08-07 23:15:00 100 /min [facility] Body temperature 2020-08-07 22:13:00 36.67 Reina [facility] Body weight 2020-08-07 22:13:00 66.679 kg [facility] Systolic blood pressure 2020-08-07 23:15:00 123 mm[Hg] [facility] Diastolic blood pressure 2020-08-07 23:15:00 92 mm[Hg] [facility] Heart rate 2020-08-07 23:15:00 79 /min [facility] Respiratory rate 2020-08-07 23:15:00 20 /min [facility] Oxygen saturation in Arterial blood by Pulse oximetry 2020-08-07 23:15:00 100 /min [facility] Body temperature 2020-08-07 22:13:00 36.67 Reina [facility] Body weight 2020-08-07 22:13:00 66.679 kg [facility] Procedures Procedure Date / Time Performed Performing Clinicia n Source CT ABDOMEN PELVIS W CONTRAST 2021-11-17 05:08:00 Aura Atkinson [facility] CBC WITH DIFF 2021-11-17 03:58:00 Aura Atkinson [facility] URINALYSIS 2021-11-17 03:39:00 Aura Atkinson [facility] POCT TEST 2021-11-17 03:39:00 Aura Atkinson [facility] LIPASE 2021-11-17 03:11:00 Aura Atkinson [facility] COMP. METABOLIC PANEL (15961) 2021-11-17 03:11:00 Aura Atkinson [facility] EBV-MONONUCLEOSIS SCREEN 2021-11-17 03:11:00 Aura Atkinson [facility] RAPID STREP SCREEN FOR GROUP A 2021-11-17 03:11:00 Aura Atkinson [facility] RAPID INFLUENZA A/B 2021-11-17 03:11:00 Aura Atkinson [facility] COVID-19 (ID NOW RAPID TESTING) 2021-11-17 03:11:00 Aura Atkinson [facility] NOTICE OF PRIVACY PRACTICES 2021-11-17 02:28:47 Doctor Unassigned, [place] [facility] CONSENT/REFUSAL FOR DIAGNOSIS AND TREATMENT 2021-11-17 02:27:24 Doctor Unassigned, [place] [facility] URINALYSIS 2020-08-07 23:45:00 [facility]EL[facility] W CONTRAST 2020-08-07 23:32:36 Farhat Lema [facility] LIPASE 2020-08-07 22:36:00 [facility], SERUM 2020-08-07 22:36:00 [facility] ([id number]) (ALB,T.PRO,BILI T,BU/BC,ALT,AST,ALK PHOS) 2020-08-07 22:36:00 [facility] BASIC [facility]ABOLIC PANEL (NA, K, CL, CO2, GLUCOSE, BUN, CREATININE, CA) 2020-08-07 22:36:00 [facility] WITH DIFF 2020-08-07 22:36:00 Farhat Lema [facility] CONSENT/REFUSAL FOR DIAGNOSIS AND TREATMENT 2020-08-07 22:03:28 Doctor Unassigned, [place] [facility] NOTICE OF PRIVACY PRACTICES 2020-08-07 22:03:13 Doctor Unassigned, [place] [facility] Encounters Start Date/Time End Date/Time Encounter Type Admission Type Attending Clinicians Care Facility Care Department Encounter ID Source 2021-11-16 21:36:00 2021-11-17 01:23:00 Emergency X AURA ATKINSON [facility] ERT [id number] [facility] 2021-11-16 21:36:00 2021-11-17 01:23:00 Emergency Aura Aktinson [facility] [id number] [facility] 2020-08-07 16:15:00 2020-08-07 19:14:00 Emergency [facility] [id number] 2020-08-07 16:15:00 2020-08-07 19:14:00 Emergency [facility] [id number] [facility] 2020-08-07 16:03:00 2020-08-07 16:03:00 Emergency X FARHAT LEMA [facility] ERT [id number] [facility] Results Test Description Test Time Test Comments Results Result Co mments Source [facility] [id number] 03:39:00* Test Item Value Reference Range Interpretation Comme nts POCT PREG (test code = 1605) Negative On board controls acceptable with C Line (test code = 3574) Positive POCT PREG LOT # (test code = 3575) [id number] POCT PREG TEST DATE ( test code = 3576) 04/24/23 Lab Interpretation (test cod e = 41212-9) Normal [facility]-MONONUCLEOSIS [id number] 03:34:37* Test Item Value Reference Range Interpretation Comme nts EBV Mononucleosis Screen (te st code = 3110257881) Negative Negative Lab Interpretation (test cod e = 79570-8) Normal [facility] METABOLIC PANEL (91498)2021-11-17 03:34:17* Test Item Value Reference Range Interpretation Comme nts NA (test code = 6840289677) 137 mmol/L 135-145 K (test code = 5115990246) 3.9 mmol/L 3.5-5.0 CL (test code = 4917008313) 101 mmol/L 98-108 CO2 TOTAL (test code = 9597614061) 23 mmol/L 23-31 AGAP (test code = 4194819876) 2-16 BUN (test code = 2541026058) 13 mg/dL 7-23 GLUCOSE (test code = 4807327111) 121 mg/dL 70-110 H CREATININE (test code = 8442661640) 0.51 mg/dL 0.50-1.04 TOTAL BILI (test code = 8768389324) 0.7 mg/dL 0.1-1.1 CALCIUM (test code = 2008948251) 9.6 mg/dL 8.6-10.6 T PROTEIN (test code = 6385779439) 8.0 g/dL 6.3-8.2 ALBUMIN (test code = 3633399173) 4.9 g/dL 3.5-5.0 ALK PHOS (test code = 3614010249) 105 U/L 34-122 ALTv (test code = 1742-6) 24 U/L 5-35 AST(SGOT) (test code = 6241501601) 30 U/L 13-40 eGFR (test code = 5497882413) mL/min/1.73m2 KELLIE (test code = KELLIE) Association [...] imaging tests). Lab Interpretation (test code = 15913-0) Abnormal [facility]2022-05-26 03:33:36* Test Item Value Reference Range Interpretation Comme nts LIPASE (test code = 6327435827) 16 U/L 0-220 Lab Interpretation (test cod e = 14076-4) Normal [facility]2021-02-14 00:11:00* Test Item Value Reference Range Interpretation Comme nts APPEARANCE (test code = 4759262969) Clear Clear COLOR (test code = 6701721736) Yellow Yellow PH (test code = 4763715303) 4.8-8.0 SP GRAVITY (test code = 5693637823) 1.003-1.030 GLU U QUAL (test code = 9161158307) Normal Normal BLOOD (test code = 5850771976) Negative Negative KETONES (test code = 0610036286) 5 mg/dL Negative A PROTEIN (test code = 2887-8) Negative Negative UROBILIN (test code = 4589521377) Normal Normal BILIRUBIN (test code = 9159830111) Negative Negative NITRITE (test code = 5813141700) Negative Negative LEUK PHILLIP (test code = 6121983839) Negative Negative RBC/HPF (test code = 8435890129) See_Comment [[employer]] The system which generated this result transmitted reference range: 0 - 3 HPF. The reference range was not used to interpret this result as normal/abnormal. WBC/HPF (test code = 0169697440) See_Comment [[employer]] The system which generated this result transmitted reference range: 0 - 5 HPF. The reference range was not used to interpret this result as normal/abnormal. BACTERIA (test code = 3003620755) Few Negative A MUCOUS (test code = 5149822685) Slight Negative LPF A SQ EPITH (test code = 9829370243) HPF Lab Interpretation (test code = 23108-7) Abnormal [facility] ABDOMEN PELVIS W [id number] 23:41:16No acute abnormality in the abdomen or [...] abdomen or pelvis to explain right lowerquadrant pain.[facility]regnancy Test, Serum 2020-08-07 23:10:00* Test Item Value Reference Range Interpretation Comme nts PREG SERUM (test code = 0416571645) Negative KELLIE (test code = KELLIE) Less than 10 IU/L. ?If low titer or ectopic is suspected, resubmit specimen in 48-72 hours. [facility] Metabolic Panel (NA, K, CL, CO2, GLUCOSE, BUN, CREATININE, CA)2020-08-07 22:59:00* Test Item Value Reference Range Interpretation Comme nts NA (test code = 5371382588) 138 mmol/L 135-145 K (test code = 0877282621) 4.6 mmol/L 3.5-5 CL (test code = 3074208365) 100 mmol/L 98-108 CO2 TOTAL (test code = 3258984174) 28 mmol/L 23-31 AGAP (test code = 7340545101) 2-16 BUN (test code = 2979986031) 15 mg/dL 7-23 GLUCOSE (test code = 4318584359) 100 mg/dL 70-110 CREATININE (test code = 6756103023) 0.75 mg/dL 0.5-1.04 CALCIUM (test code = 9376346696) 9.9 mg/dL 8.6-10.6 KELLIE (test code = KELLIE) Association of [...] imaging tests). Lab Interpretation (test code = 52045-8) Normal [facility] Function Panel (ALB, T.PRO, BILI T, BU/BC, ALT, AST, ALK PHOS)2020-08-07 22:59:00* Test Item Value Reference Range Interpretation Comme nts TOTAL BILI (test code = 8779009052) 0.6 mg/dL 0.1-1.1 BILI UNCON (test code = 7304593797) 0.5 mg/dL 0.1-1.1 BILI CONJ (test code = 6982026866) 0.0 mg/dL 0-0.3 T PROTEIN (test code = 2736226920) 8.7 g/dL 6.3-8.2 H ALBUMIN (test code = 2584768767) 5.3 g/dL 3.5-5 H ALK PHOS (test code = 2293901151) 91 U/L 34-122 ALTv (test code = 1742-6) 10 U/L 5-35 AST(SGOT) (test code = 7716212370) 20 U/L 13-40 Lab Interpretation (test cod e = 58917-0) Abnormal [facility] [id number] 22:59:00* Test Item Value Reference Range Interpretation Comme nts LIPASE (test code = 1694258618) 40 U/L 0-220 Lab Interpretation (test cod e = 59020-9) Normal [facility]CB with [id number] 22:52:00* Test Item Value Reference Range Interpretation Comme nts WBC (test code = 6690-2) See_Comment [Automated [employer]] The system which generated this result transmitted reference range: 4.50 - 13.50 10*3/?L. The reference range was not used to interpret this result as normal/abnormal. RBC (test code = 789-8) See_Comment [Automated [employer]] The system which generated this result [...] 33.2 g/dL 32-36 RDW-SD (test code = 10271-4) 40.4 fL 38.5-49 RDW-CV (test code = 788-0) 12.4 % 11.5-14 PLT (test code = 777-3) See_Comment [Automated [employer]] The system which generated this result transmitted reference range: 135 - 361 10*3/?L. The reference range was not used to interpret this result as normal/abnormal. MPV (test code = 55962-0) 10.4 fL 9.4-13.3 NRBC/100 WBC (test code = 4968916263) See_Comment [Automated [employer] ssage] The system which generated this result transmitted reference range: 0.0 - 10.0 /100 WBCs. The reference range was not used to interpret this result as normal/abnormal. NRBC x10^3 (test code = 7870234750) <0.01 See_Comment [Automated me ssage] The system which generated this result transmitted reference range: 10*3/?L. The reference range was not used to interpret this result as normal/abnormal. GRAN MAT (NEUT) % (test code = 770-8) 61.7 % IMM GRAN % (test code = 2386852767) 0.20 % LYMPH % (test code = 736-9) 31.9 % MONO % (test code = 5905-5) 5.0 % EOS % (test code = 713-8) 0.9 % BASO % (test code = 706-2) 0.3 % GRAN MAT x10^3(ANC) (test code = 4259749448) 3.91 10*3/uL 1.5-10.3 IMM GRAN x10^3 (test code = 0914563339) <0.03 0-0.06 LYMPH x10^3 (test code = 731-0) 2.02 10*3/uL 0.7-7.4 MONO x10^3 (test code = 742-7) 0.32 10*3/uL 0-0.5 EOS x10^3 (test code = 711-2) 0.06 10*3/uL 0-0.4 BASO x10^3 (test code = 704-7) <0.03 0-0.1 [facility]"
[2024-07-10] MEDS ORDERED: ONDANSETRON 4 MG/2 ML VIAL ONE (00:30)
[2024-07-10] MEDS ORDERED: MORPHINE 4 MG/ML SYR ONE (00:30)
[2024-07-10] MEDS ORDERED: NA CHLORIDE 0.9% 1,000 ML ONE (00:30)
[2024-07-10] MEDS ORDERED: ETOMIDATE 20 MG/10 ML VIAL IV ONE (01:28)
[2024-07-10] MEDS ORDERED: MIDAZOLAM HCL 5 ML ONE (01:36)
[2024-07-10] MEDS ORDERED: PROMETHAZINE 25 MG TABLET ONE (02:02)
[2024-07-10] MEDS ORDERED: IBUPROFEN 400 MG TAB ONE (02:03)
[2024-07-10] MEDS ORDERED: NA CHLORIDE 0.9% 500 ML ONE (02:03)
--- NOTE | 2024-07-10 03:21 | ER ---
Nurse's Notes [facility] Name: Roxann Henriquez Age: 19 yrs Sex: Female : 2005 Arrival Date: 07/09/2024 Time: 23:54 Bed 4 Private MD: Diagnosis: Acute left elbow posterior dislocation, acute left elbow superior olecranon notch fracture Presentation: 07/09 23:56 Chief complaint: EMS states: TONED OUT FOR ELBOW PAIN. EMS REPORTS PT WRESTLING WITH dd2 FRIEND AND LANDED ON HER LT ELBOW. EMS REPORTS DEFORMITY NOTED. Coronavirus screen: At this time, the client does not indicate any symptoms associated with coronavirus-19. Ebola Screen: No symptoms or risks identified at this time. Initial Sepsis Screen: Does the patient meet any 2 criteria? No. Patient's initial sepsis screen is negative. Does the patient have a suspected source of infection? No. Patient's initial sepsis screen is negative. Risk Assessment: Do you want to hurt yourself or someone else? Patient reports no desire to harm self or others. Onset of symptoms was July 09, 2024. Care prior to arrival: Splint applied. Splint applied. Medication(s) given: FENTANYL 70 MCG NASAL. 23:56 Method Of Arrival: EMS: [facility] dd2 23:56 Acuity: PAULETTE 3 dd2 Triage Assessment: 07/10 00:02 General: Appears uncomfortable, Behavior is cooperative, appropriate for age, anxious, dd2 restless. Pain: Complains of pain in left elbow Pain radiates to left hand Pain currently is 10 out of 10 on a pain scale. EENT: No deficits noted. No signs and/or symptoms were reported regarding the EENT system. Neuro: Perry Agitation-Sedation Scale (RASS): +1 Restless Level of Consciousness is awake, alert, obeys commands, Oriented to person, place, time, situation, Appropriate for age. Cardiovascular: No deficits noted. Respiratory: No deficits noted. Airway is patent Respiratory effort is even, unlabored, Respiratory pattern is regular, symmetrical. GI: No deficits noted. No signs and/or symptoms were reported involving the gastrointestinal system. : No deficits noted. No signs and/or symptoms were reported regarding the genitourinary system. Derm: No deficits noted. No signs and/or symptoms reported regarding the dermatologic system. Musculoskeletal: Circulation, motion, and sensation intact. Bony deformity noted of left elbow Reports pain in left elbow. Injury Description: Deformity sustained to left elbow. 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 - Infectious Disease History:: Denies. - Social history:: Smoking status: Reported history of juuling and/or vaping. - Family history:: not pertinent. Screenin:[address] [facility] ED Fall Risk Assessment (Adult) History of falling in the last 3 months, bm8 including since admission No falls in past 3 months (0 pts) Confusion or Disorientation No (0 pts) Intoxicated or Sedated Yes (3 pts) Impaired Gait No (0 pts) Mobility Assist Device Used No (0 pt) Altered Elimination No (0 pt) Score/Fall Risk Level 3 or more points = High Risk Oriented to surroundings, Maintained a safe environment, Educated pt \T\ family on fall prevention, incl call for assistance when getting out of bed, Assessed \T\ reinforced patient's understanding of fall precautions, Hourly rounding (assess needs \T\ fall precautionary measures) done, Used ambulatory aids as needed (educated on \T\ assisted with), Used gait belt as appropriate Implemented a Fall Risk Plan of Care. Abuse screen: Denies threats or abuse. Nutritional screening: No deficits noted. Tuberculosis screening: No symptoms or risk factors identified. Assessment: 00:06 Reassessment: SEE TRIAGE FOR FULL ASSESSMENT. dd2 00:39 General: Appears distressed, uncomfortable, Behavior is anxious. Pain: Complains of bm8 pain in left arm Pain currently is 8 out of 10 on a pain scale. Musculoskeletal: Range of motion: limited in left elbow Bony deformity noted of left arm Reports pain in left arm Pain is 8 out of 10 on a pain scale. 01:35 Reassessment: conscious sedation begins. see paper charting for procedure details. bm8 02:09 Reassessment: Patient appears in no apparent distress at this time. Patient and/or bm8 family updated on plan of care and expected duration. Pain level reassessed. Patient is alert, oriented x 3, equal unlabored respirations, skin warm/dry/pink. Patient states feeling better. Patient states symptoms have improved. Musculoskeletal: Denies pain in, left elbow. 03:20 Reassessment: Patient appears in no apparent distress at this time. Patient and/or bm8 family updated on plan of care and expected duration. Pain level reassessed. Patient is alert, oriented x 3, equal unlabored respirations, skin warm/dry/pink. Patient states feeling better. Patient states symptoms have improved. Vital Signs: 07/09 23:56 BP 111 / 82; Pulse 88; Resp 17; Temp 98.4(TE); Pulse Ox 98% ; Weight 68.04 kg; Pain dd2 04/03; 07/10 02:09 BP 113 / 74; Pulse 147; Resp 20; Temp 98.4; Pulse Ox 99% on R/A; Pain 0/10; bm8 03:20 BP 112 / 65; Pulse 100; Resp 17; Temp 98.4; Pulse Ox 100% on R/A; Pain 2/10; bm8 07/09 23:56 Pain Scale: Adult dd2 07/10 02:09 Pain Scale: Adult bm8 03:20 Pain Scale: Adult bm8 [place] Coma Score: 00:39 Eye Response: spontaneous(4). Motor Response: obeys commands(6). Verbal Response: bm8 oriented(5). Total: 15. 02:09 Eye Response: spontaneous(4). Motor Response: obeys commands(6). Verbal Response: bm8 oriented(5). Total: 15. 03:20 Eye Response: spontaneous(4). Motor Response: obeys commands(6). Verbal Response: bm8 oriented(5). Total: 15. 22:46 Eye Response: spontaneous(4). Motor Response: obeys commands(6). Verbal Response: sp4 oriented(5). Total: 15. ED Course: 07/09 23:55 Patient arrived in ED. dd2 23:55 Tung Mancilla MD is Attending Physician. sp4 07/10 00:02 Triage completed. dd2 00:02 Arm band placed on right wrist. Patient placed in an exam room, on a stretcher, on dd2 pulse oximetry. 00:38 Simone Valencia RN is Primary Nurse. bm8 00:39 Patient has correct armband on for positive identification. Bed in low position. Call bm8 light in reach. Side rails up X 1. Provided Education on: Conscious Sedation. Client placed on continuous cardiac and pulse oximetry monitoring. NIBP monitoring applied. alarm security or surveillance monitor on. Pulse ox on. NIBP on. Door closed. Noise minimized. Warm blanket given. Pillow given. Verbal reassurance given. Head of bed elevated. 00:39 No provider procedures requiring assistance completed. Inserted saline lock: 20 gauge bm8 in right antecubital area, using aseptic technique. Blood collected. Flushed with 10 mL NS. Patient maintains SpO2 saturation greater than 95% on room air. 01:34 Elbow Left 2 View XRAY In Process Unspecified. EDMS 01:48 Elbow Left 3 View In Process Unspecified. EDMS 02:14 Orthoglass splint: posterior long arm splint applied to the left arm. Sling applied to bm8 left arm. 03:20 Leon Londono MD is Referral Physician. sp4 03:20 IV discontinued, intact, bleeding controlled, No redness/swelling at site. Pressure bm8 dressing applied. Administered Medications: 00:39 Drug: morphine IVP or IV 8 mg IVP once over 4 mins Route: IVP; Infused Over: 4 mins; bm8 Site: right antecubital; 02:11 Follow up: Response: No adverse reaction bm8 00:39 Drug: Ondansetron IVP 8 mg IVP once; over 2 minutes Route: IVP; Site: right antecubital;bm8 02:11 Follow up: Response: No adverse reaction bm8 00:39 Drug: NS 0.9% IV 1000 ml IV at 1000 ml once; to be given as a bolus over 60 minutes bm8 Route: IV; Rate: 1000 ml; Site: right antecubital; 02:11 Follow up: Response: No adverse reaction; IV Status: Completed infusion; IV Intake: bm8 1000ml 01:35 Drug: Etomidate IVP 20 mg IVP once Route: IVP; Site: right antecubital; bm8 02:11 Follow up: Response: Adverse reaction, Physician notified; Pt had seizure like james goodwin MD present at time of reaction and new orders recieved and carried out. Medication added to allergy list 01:37 Drug: Midazolam IVP or IV 5 mg IVP once Route: IVP; Site: right antecubital; bm8 03:01 Follow up: Response: No adverse reaction bm8 02:10 Drug: Promethazine PO 25 mg PO once Route: PO; bm8 03:01 Follow up: Response: No adverse reaction bm8 02:11 Drug: NS 0.9% IV 500 ml 500 ml IV at 1 bolus once; to be given as a bolus over 30 bm8 minutes Volume: 500 ml; Route: IV; Rate: 1 bolus; Site: right antecubital; 03:01 Follow up: Response: No adverse reaction; IV Status: Completed infusion; IV Intake: bm8 500ml 02:11 Drug: Ibuprofen PO 800 mg PO once Route: PO; bm8 03:01 Follow up: Response: No adverse reaction bm8 Medication: 00:39 VIS not applicable for this client. bm8 Intake: 02:11 IV: 1000ml; Total: 1000ml. bm8 03:01 IV: 500ml; Total: 1500ml. bm8 Outcome: 03:21 Discharge ordered by . sp4 03:34 Discharged to home via wheelchair, bm8 03:34 Condition: stable 03:34 Discharge instructions given to patient, family, Instructed on discharge instructions, follow up and referral plans. Demonstrated understanding of instructions, follow-up care, medications, Prescriptions given X 2, 03:35 Patient left the ED. bm8 Signatures: Dispatcher [employer] EDTung Sotelo MD MD sp4 Simone Valencia RN RN bm8 MARCO ANTONIO MCDOWELL RN RN dd2 Corrections: (The following items were deleted from the chart) 03:02 00:02 Allergies: No Known Allergies; dd2 bm8
--- NOTE | 2024-07-10 03:21 | EDPHYS ---
Physician Documentation [facility] Name: Roxann Henriquez Age: 19 yrs Sex: Female : 2005 Arrival Date: 07/09/2024 Time: 23:54 Bed 4 Private MD: ED Physician Tung Mancilla HPI: 07/09 23:57 This 19 yrs old Female presents to ER via Unassigned with complaints of Elbow sp4 Injury. 23:57 Patient presents with acute left elbow injury associated with deformity indicative of sp4 dislocation. . 07/10 22:46 Patient presented with moderate to severe left elbow pain and deformity indicative of sp4 elbow dislocation. Patient presents with EMS in severe pain associated with left elbow deformity. Patient states she was horse playing with her friend which caused her to fall and sustained elbow injury on the left. 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 - Infectious Disease History:: Denies. - Social history:: Smoking status: Reported history of juuling and/or vaping. - Family history:: not pertinent. ROS: 22:46 Constitutional: Negative for fever, chills, and weight loss, positive for left elbow sp4 pain positive left elbow deformity 22:46 All other systems are negative, Exam: 22:46 Constitutional: This is a well developed, well nourished patient who is awake, alert, sp4 moderate distress secondary to pain Head/Face: Normocephalic, atraumatic. Eyes: Pupils equal round and reactive to light, extra-ocular motions intact. Lids and lashes normal. Conjunctiva and sclera are not injected. Cornea within normal limits. Periorbital areas with no swelling, redness, or edema. ENT: Nares patent. No nasal discharge, no septal abnormalities noted. Tympanic membranes are normal and external auditory canals are clear. Oropharynx with no redness, swelling, or masses, exudates, or evidence of obstruction, uvula midline. Mucous membranes moist. Neck: Trachea midline, no thyromegaly or masses palpated, and no cervical lymphadenopathy. Supple, full range of motion without nuchal rigidity, or vertebral point tenderness. Chest/axilla: Normal chest wall appearance and motion. Nontender with no deformity. No lesions are appreciated. Cardiovascular: Regular rate and rhythm with a normal S1 and S2. No gallops, murmurs, or rubs. Normal PMI, no JVD. No pulse deficits. Respiratory: Lungs have equal breath sounds bilaterally, clear to auscultation and percussion. No rales, rhonchi or wheezes noted. No increased work of breathing, no retractions or nasal flaring. Abdomen/GI: Soft, with normal bowel sounds. No distension or tympany. No guarding or rebound. No evidence of tenderness throughout. Back: No spinal tenderness. No costovertebral tenderness. Skin: Warm, dry with normal turgor. Normal color with no rashes, no lesions, and no evidence of cellulitis. MS/ Extremity: Pulses equal, no cyanosis. Neurovascular intact. Preserved peripheral pulses, left elbow deformity indicative of posterior elbow dislocation. Left elbow swelling severe tenderness decreased left elbow range of motion. Neuro: Awake and alert, GCS 15, oriented to person, place, time, and situation. Cranial nerves II-XII grossly intact. Motor strength 5/5 in all extremities. Sensory grossly intact. Psych: Awake, alert, with orientation to person, place and time. There is moderate emotional upset Vital Signs: 07/09 23:56 BP 111 / 82; Pulse 88; Resp 17; Temp 98.4(TE); Pulse Ox 98% ; Weight 68.04 kg; Pain dd2 10; 07/10 02:09 BP 113 / 74; Pulse 147; Resp 20; Temp 98.4; Pulse Ox 99% on R/A; Pain 0/10; bm8 03:20 BP 112 / 65; Pulse 100; Resp 17; Temp 98.4; Pulse Ox 100% on R/A; Pain 2/10; bm8 07/09 23:56 Pain Scale: Adult dd2 07/10 02:09 Pain Scale: Adult bm8 03:20 Pain Scale: Adult bm8 Braulio Coma Score: 00:39 Eye Response: spontaneous(4). Motor Response: obeys commands(6). Verbal Response: bm8 oriented(5). Total: 15. 02:09 Eye Response: spontaneous(4). Motor Response: obeys commands(6). Verbal Response: bm8 oriented(5). Total: 15. 03:20 Eye Response: spontaneous(4). Motor Response: obeys commands(6). Verbal Response: bm8 oriented(5). Total: 15. 22:46 Eye Response: spontaneous(4). Motor Response: obeys commands(6). Verbal Response: sp4 oriented(5). Total: 15. Procedures: 01:55 Splinting: Splint applied to left tricep, left elbow and palmar aspect of left forearm sp4 using Orthoglass splint, applied by myself. post reduction film - reveals normal alignment, Examined by me, post splint application: neurovascular intact, 2+ distal pulses palpable, brisk capillary refill noted, Patient tolerated well, Left arm sling was provided. Reduction: of the left elbow, using traction, manipulation, flexion, Immobilized with sling, Patient tolerated well. Post reduction film - reveals normal alignment. Left posterior elbow dislocation reduced with moderate sedation. Posterior long-arm splint placed with elbow immobilized at 90 degree angle. Instructions provided to the patient to wear splint at all times. Procedural sedation: Pre-procedure assessment: the patient has been NPO 6 hour(s) prior to arrival, ASA physical classification: I - healthy, no underlying organic disease, Airway assessment: able to hyperextend neck, able to maintain airway, can open mouth without difficulty, Mallampati classification of tongue size: II - faucial pillars and soft palate can be visualized, but uvula is masked by the base of the tongue, Monitoring during procedure: rn cardiac cath, continuous pulse oximetry, nurse at bedside at all times, Medications employed: Etomidate, 20 mg(s), Versed, 5 mg(s), Alternatives to procedural sedation discussed Patient developed some tremors after etomidate and had to be given Versed., Post-procedure assessment: the patient is moderately sedated, Pringle sedation score: 4 - brisk response to a light glabellar tap, Respiratory status: requires supplemental oxygen to maintain acceptable oxygen saturation, a reversal agent was not used, Moderate sedation was done secondary to acute left elbow dislocation. Total intra sedation time 25 minutes. Successful moderate sedation. After sedation instruction was provided per the patient. MDM: 07/09 23:57 Medical Screening Exam initiated sp4 07/10 03:19 ED course: EXAM DESCRIPTION: Elbow Left 2 View RadLex: XR ELBOW 1-2 VIEWS LEFT CLINICAL sp4 HISTORY: 19 years Female, dislocation COMPARISON: None. FINDINGS: 2 views of the left elbow. Posterior dislocation of the elbow. There appears to be a nondisplaced fracture involving the superior aspect of the olecranon/trochlear notch. Additional punctate osseous structure just anteriorly probably represents a displaced fracture fragment. IMPRESSION: Posterior dislocation of the elbow with fracture involving the superior olecranon/trochlear notch. Electronically signed by: Adina Steiner MD 07/10/2024 02:46 AM . ED course: EXAM DESCRIPTION: Elbow Left 3 View CLINICAL HISTORY: POST REDUCTION COMPARISON: 07/10/2024 FINDINGS: 3 views of the left elbow. Post reduction imaging demonstrates markedly in normal anatomic alignment. Normal osseous mineralization. No definite fracture identified on this study. Small joint effusion. IMPRESSION: Post reduction imaging demonstrates markedly in normal anatomic alignment. . 22:44 Differential diagnosis: dislocation, contusion, abrasion, tendonitis. sp4 22:46 Data reviewed: vital signs, nurses notes, EMS record, radiologic studies, plain films. sp4 Consideration of Admission/Observation Escalation of care including admission/observation considered. ED course: Patient was placed in a left posterior long-arm splint. Patient advised to see orthopedist for repeat evaluation in the next 5 to 6 days.. 07/10 01:16 Order name: Elbow Left 2 View XRAY sp4 07/10 01:48 Order name: Elbow Left 3 View EDMS 07/09 23:56 Order name: IV Saline Lock; Complete Time: 00:39 sp4 07/09 23:56 Order name: Labs collected and sent; Complete Time: 00:39 sp4 07/09 23:56 Order name: Moderate Sedation; Complete Time: 00:28 sp4 07/09 23:56 Order name: NPO; Complete Time: 00:28 sp4 Administered Medications: 00:39 Drug: morphine IVP or IV 8 mg IVP once over 4 mins Route: IVP; Infused Over: 4 mins; bm8 Site: right antecubital; 02:11 Follow up: Response: No adverse reaction bm8 00:39 Drug: Ondansetron IVP 8 mg IVP once; over 2 minutes Route: IVP; Site: right antecubital;bm8 02:11 Follow up: Response: No adverse reaction bm8 00:39 Drug: NS 0.9% IV 1000 ml IV at 1000 ml once; to be given as a bolus over 60 minutes bm8 Route: IV; Rate: 1000 ml; Site: right antecubital; 02:11 Follow up: Response: No adverse reaction; IV Status: Completed infusion; IV Intake: bm8 1000ml 01:35 Drug: Etomidate IVP 20 mg IVP once Route: IVP; Site: right antecubital; bm8 02:11 Follow up: Response: Adverse reaction, Physician notified; Pt had seizure like bm8 activity, MD present at time of reaction and new orders recieved and carried out. Medication added to allergy list 01:37 Drug: Midazolam IVP or IV 5 mg IVP once Route: IVP; Site: right antecubital; bm8 03:01 Follow up: Response: No adverse reaction bm8 02:10 Drug: Promethazine PO 25 mg PO once Route: PO; bm8 03:01 Follow up: Response: No adverse reaction bm8 02:11 Drug: NS 0.9% IV 500 ml 500 ml IV at 1 bolus once; to be given as a bolus over 30 bm8 minutes Volume: 500 ml; Route: IV; Rate: 1 bolus; Site: right antecubital; 03:01 Follow up: Response: No adverse reaction; IV Status: Completed infusion; IV Intake: bm8 500ml 02:11 Drug: Ibuprofen PO 800 mg PO once Route: PO; bm8 03:01 Follow up: Response: No adverse reaction bm8 Disposition Summary: 07/10/24 03:21 Discharge Ordered Notes: Location: Home sp4 Problem: new sp4 Symptoms: have improved sp4 Condition: Stable sp4 Diagnosis - Acute left elbow posterior dislocation, acute left elbow superior olecranon notch sp4 fracture Followup: sp4 - With: Leon Londono MD - When: 7 - 10 days - Reason: Recheck today's complaints Discharge Instructions: - Discharge Summary Sheet sp4 - Elbow Dislocation, [id number] sp4 Forms: - Work release form sp4 - Patient Portal Instructions sp4 Prescriptions: - Ibuprofen 800 mg Oral Tablet - take 1 tablet ORAL route every 8 hours As needed take with food; 30 tablet; sp4 Refills: 0, Product Selection Permitted - Tramadol 50 mg Oral tablet - take 1 tablet ORAL route every 8 hours as needed; 20 tablet; Refills: 0, sp4 Product Selection Permitted Signatures: Dispatcher [employer] EDTung Sotelo MD MD sp4 Simone Valencia, RN RN bm8 MARCO ANTONIO MCDOWELL RN RN dd2 Corrections: (The following items were deleted from the chart) 07/09 23:56 23:56 CBC+H.LAB.BRZ ordered. EDMS EDMS 23:56 23:56 COMPREHENSIVE METABOLIC PANEL+C.LAB.BRZ ordered. EDMS EDMS 07/10 01:40 01:40 Elbow Left 3 View+RAD.RAD.BRZ ordered. EDMS EDMS 01:48 01:35 Elbow Left 2 View ordered. EDMS EDMS 03:02 00:02 Allergies: No Known Allergies; dd2 bm8 22:46 01:55 Splinting: Splint applied to left tricep, left elbow and palmar aspect of left sp4 forearm using Ortho 3D boot, applied by myself. post reduction film - reveals normal alignment, Examined by me, post splint application: neurovascular intact, 2+ distal pulses palpable, brisk capillary refill noted, Patient tolerated well, Left arm sling was provided. sp4
--- NOTE | 2024-07-10 06:23 | RAD REPORT ---
EXAM DESCRIPTION: Elbow Left 3 View CLINICAL HISTORY: POST REDUCTION COMPARISON: 07/10/2024 FINDINGS: 3 views of the left elbow. Post reduction imaging demonstrates markedly in normal dallin tomic alignment. Normal osseous mineralization. No definite fracture identified on this study. Small joint effusion. IMPRESSION: Post reduction imaging demonstrates markedly in normal anatomic alignment. Electronically signed by: Reg Land DO 07/10/2024 03:[address] [facility] [id number] Due to temporary technical issues with the PACS/[employer] reporting system, reports are being juan d by the in-house radiologist without review as a courtesy to ensure prompt reporting the interpreting radiologist is fully responsible for the content of the report. Due to temporary technic al issues with the PACS/[employer] reporting system, reports are being signed by the in-house radiologist without review as a courtesy to ensure prompt reporting the interpreting radiologist is f ully responsible for the content of the report. Transcribed Date/Time: 07/10/2024 6:23 AM
--- NOTE | 2024-07-10 06:23 | RAD REPORT ---
EXAM DESCRIPTION: Elbow Left 2 View RadLex: XR ELBOW 1-2 VIEWS LEFT CLINICAL HISTORY: 19 years Female, dislocation COMPARISON: None. FINDINGS: 2 views of the left elbow. Posterior dislocation of the elbow. There appears to be a nondisplaced fra cture involving the superior aspect of the olecranon/trochlear notch. Additional punctate osseous structure just anteriorly probably represents a displaced fracture fragment. IMPRESSION: Posterior dislocation of the elbow with fracture involving the superior olecranon/trochlear notch. Electronically signed by: Adina Steiner MD 07/10/2024 02:46 AM [facility] Due to temporary technical issues with the PACS/[employer] reporting system, reports are being juan d by the in-house radiologist without review as a courtesy to ensure prompt reporting the interpreting radiologist is fully responsible for the content of the report. Transcribed Date/Time: 07/10/2024 6:22 AM
[2024-07-11 02:39] VITALS: BP 112/65; TEMP 98.4; O2SAT 100
== END 2024-07-10 03:35 | disposition home or self-care (01) ==
LOC: ER 23:54
PROC: 0PSL35Z Reposition Left Ulna with External Fixation Device, Percutaneous Approach (ICD-10-PCS; principal; 2024-07-10)
DX: S53.125A Posterior dislocation of left ulnohumeral joint, initial encounter (principal); S42.402A Unspecified fracture of lower end of left humerus, initial encounter for closed fracture
CPT/HCPCS: 96361; 96374; 96375; 99285; J2250; J2405; J7030; J7040; Q0169

== ENCOUNTER 2024-07-20 00:41 | Emergency (ER) | payer SELFPAY ==
--- OUTSIDE RECORDS SUMMARY | 2024-07-20 00:44 | XMS REPORT | Continuity of Care Document ---
Author Name Unknown Address [address] [facility] [address] [place] [address] [facility] Address [address] [facility] [place] [address] Care Team Providers Care Director Of Informatics Name Role Phone CLARE SARMIENTO Primary Care Physician Unavailab AURA Flores Attending Clinician Unavailable Aura Atkinson MD Attending Clinician Farhat aPge Attending Clinician [phone] FARHAT LEMA Attending Clinician Unavailable AURA ATKINSON Admitting Clinician Unavailable Payers Payer Name Policy Type Policy Number Effective Date Expirati on Date Source [facility] MEDICAID [id number] 2021 00:00:00 Problems Condition Name Condition Details Condition Category Status Onset Date Resolution Date Last Treatment Date Treating Clinician Comments Source No known active problems No known active problems Disease [facility] Allergies, Adverse Reactions, Alerts Allergy Name Allergy Type Status Severity Reaction(s) Onset Date Inactive Date Treating Clinician Comments Source NO KNOWN ALLERGIE S Drug Class Active [facility] Social History Social Habit Start Date Stop Date Quantity Comments Source Exposure to SARS-CoV-2 (event) 2021-11-06 00:00:00 2021-11-16 21:37:00 Not sure [facility] Sex Assigned At 2005 00:00:00 2005 00:00:00 [facility] Smoking Status Start Date Stop Date Source Unknown if ever smoked [facility] Medications Ordered Medication Name Filled Medication Name Start Date Stop Date Current Medication? Ordering Clinician Indication Dosage Frequency Signature (SIG) Comments Components Source lidocaine 2% viscous (LIDOCAINE VISCOUS) 2 % solution 10 mL 11-17 07:15: 00 11-17 06:09 :00 No 10mL 10 mL, Oral, ONCE, 1 dose, On Marium 11/17/21 at 0215, ANAT [facility] iopamidol (ISOVUE 370-500 mL) injection 120 mL 11-17 06:15: 00 11-17 05:06 :00 No [id number] 120mL 120 mL, Intravenou s, ONCE, 1 dose, On Marium 11/17/21 at 0115, Routine [facility] FENTanyl PF (SUBLIMAZE (PF)) injection 50 mcg 11-17 05:30: 00 11-17 04:38 :00 No 50ug 50 mcg, Slow IV Push, ONCE, 1 dose, On Marium 11/17/21 at 0030, Routine [facility] cefTRIAXone (ROCEPHIN) 1,000 mg in NaCl 0.9% (NS) 50 mL MINI-BAG 11-17 05:30: 00 11-17 06:10 :00 No 1000mg 1,000 mg, IV Piggyback, ONCE, 1 dose, On Marium 11/17/21 at 0030, Administer over 30 Minutes, 50 mL
Reas on for Anti-Infec tive: Documented Infection< br>Documen ru Infection Site: Urine
D uration of Therapy: Other (see Comments) [facility] ondansetron (ZOFRAN (PF)) injection 4 mg 11-17 05:00: 00 11-17 03:59 :00 No 4mg 4 mg, Slow IV Push, ONCE, 1 dose, On Marium 11/17/21 at 0000, ANAT [facility] ketorolac (TORADOL) injection 30 mg 11-17 04:45: 00 11-17 03:46 :00 No 30mg 30 mg, Slow IV Push, ONCE, 1 dose, On Sun11/16/21 at 2345, Routine
assembly member approving Restricted medication : AURA ATKINSON [facility] NaCl 0.9% (NS) IV infusion 1,000 mL 11-17 04:15: 00 Yes 1000mL at 999 mL/hr, Intravenou s, CONTINUOUS , Starting on Sun11/16/21 at 2315, Until Discontinu ed, Routine [facility] lidocaine 2% viscous 2 % solution 11-17 00:00: 00 Yes [id number] 15mL Take 15 mL by mouth every 4 (four) hours as needed for Local anesthesia or Oral mucosal pain. [facility] ondansetron (ZOFRAN) 4 mg tablet 11-17 00:00: 00 Yes [id number] 4mg Take 1 tablet by mouth every 8 (eight) hours as needed for Nausea and Vomiting (N/V). [facility] dicyclomine 20 mg tablet 11-17 00:00: 00 Yes [id number] 20mg Take 1 tablet by mouth every 6 (six) hours as needed for Abdominal pain. [facility] amoxicillin -clavulanat e 875-125 mg per tablet 11-17 00:00: 00 Yes [id number] 1{tbl} Take 1 tablet by mouth every 12 (twelve) hours. [facility] doxycycline hyclate (Vibramycin ) capsule 100 mg 08-08 01:45: 00 08-08 00:40 :00 No 100mg 100 mg, Oral, ONCE, 1 dose, 08/07/20 at 1945, ANAT
Re ason for Anti-Infec tive: Empiric Therapy for Suspected Infection< br>Empiric Therapy Site: Pelvic
Duration of therapy: 72 hours [facility] cefTRIAXone (ROCEPHIN) injection 500 mg 08-08 01:45: 00 08-08 00:40 :00 No 500mg 500 mg, Intramuscu lar, ONCE, 1 dose, 08/07/20 at 1945, ANAT
Re ason for Anti-Infec tive: Documented Infection< br>Documen ru Infection Site: Pelvic
Duration of Therapy: 7 days [facility] ondansetron (ZOFRAN-ODT ) disintegrat ing tablet 4 mg 08-08 01:15: 00 08-08 00:20 :00 No 4mg 4 mg, Oral, ONCE, 1 dose, 08/07/20 at 1915, Routine [facility] dicyclomine (BENTYL) tablet 20 mg 08-08 01:15: 00 08-08 00:20 :00 No 20mg 20 mg, Oral, ONCE NOW, 1 dose, 08/07/20 at 1915, ANAT [facility] ketorolac (TORADOL) injection 30 mg 08-08 01:15: 00 08-08 00:20 :00 No 30mg 30 mg, Slow IV Push, ONCE, 1 dose, 08/07/20 at 1915, ANAT
Fa culty member approving Restricted medication : EMERGENCY ROOM, [facility] iohexol (OMNIPAQUE 350 BULK-100 mL) injection 100 mL 08-07 23:45: 00 08-07 23:25 :00 No 100mL 100 mL, Intravenou s, ONCE, 1 dose, 08/07/20 at 1745, Routine [facility] morpHINE injection 4 mg 08-07 23:30: 00 08-07 23:12 :00 No 4mg 4 mg, Slow IV Push, ONCE, 1 dose, 08/07/20 at 1730, STAT [facility] ondansetron (ZOFRAN (PF)) injection 4 mg 08-07 23:30: 00 08-07 23:30 :00 No 4mg 4 mg, Slow IV Push, ONCE, 1 dose, 08/07/20 at 1730, ANAT [facility] NaCl 0.9% (NS) bolus infusion 1,000 mL 08-07 22:30: 00 08-08 00:57 :00 No 1000mL at 999 mL/hr, 1,000 mL, IV Infusion, ONCE, 1 dose, 08/07/20 at 1630, ANAT [facility] ondansetron (ZOFRAN ODT) 4 mg disintegrat ing tablet 08-07 00:00: 00 Yes [id number] 4mg Take 1 tablet by mouth every 8 (eight) hours as needed for Nausea and Vomiting (N/V). [facility] doxycycline hyclate 100 mg capsule 08-07 00:00: 00 08-22 05:59 :00 No [id number] 100mg Take 1 capsule by mouth 2 (two) times daily for 14 days. [facility] Vital Signs Vital Name Observation Time Observation Value Comments S ource Systolic blood pressure 2021-11-17 06:00:00 143 mm[Hg] [facility] Diastolic blood pressure 2021-11-17 06:00:00 96 mm[Hg] [facility] Heart rate 2021-11-17 06:00:00 87 /min [facility] Respiratory rate 2021-11-17 06:00:00 18 /min [facility] Oxygen saturation in Arterial blood by Pulse oximetry 2021-11-17 06:00:00 99 /min [facility] Body temperature 2021-11-17 02:41:00 37.06 Reina [facility] Body height 2021-11-17 02:41:00 154.9 cm [facility] Body weight 2021-11-17 02:41:00 68.04 kg [facility] BMI 2021-11-17 02:41:00 28.34 kg/m2 [facility] Body mass index (BMI) [Percentile] Per age and sex 2021-11-17 02:41:00 91.87 % [facility] Systolic blood pressure 2020-08-07 23:15:00 123 mm[Hg] [facility] Diastolic blood pressure 2020-08-07 23:15:00 92 mm[Hg] [facility] Heart rate 2020-08-07 23:15:00 79 /min [facility] Respiratory rate 2020-08-07 23:15:00 20 /min [facility] Oxygen saturation in Arterial blood by Pulse oximetry 2020-08-07 23:15:00 100 /min [facility] Body temperature 2020-08-07 22:13:00 36.67 Reina [facility] Body weight 2020-08-07 22:13:00 66.679 kg [facility] Systolic blood pressure 2020-08-07 23:15:00 123 mm[Hg] [facility] Diastolic blood pressure 2020-08-07 23:15:00 92 mm[Hg] [facility] Heart rate 2020-08-07 23:15:00 79 /min [facility] Respiratory rate 2020-08-07 23:15:00 20 /min [facility] Oxygen saturation in Arterial blood by Pulse oximetry 2020-08-07 23:15:00 100 /min [facility] Body temperature 2020-08-07 22:13:00 36.67 Reina [facility] Body weight 2020-08-07 22:13:00 66.679 kg [facility] Procedures Procedure Date / Time Performed Performing Clinicia n Source CT ABDOMEN PELVIS W CONTRAST 2021-11-17 05:08:00 Aura Atkinson [facility] CBC WITH DIFF 2021-11-17 03:58:00 Aura Atkinson [facility] URINALYSIS 2021-11-17 03:39:00 Aura Atkinson [facility] POCT TEST 2021-11-17 03:39:00 Aura Atkinson [facility] LIPASE 2021-11-17 03:11:00 Aura Atkinson [facility] COMP. METABOLIC PANEL (17702) 2021-11-17 03:11:00 Aura Atkinson [facility] EBV-MONONUCLEOSIS SCREEN 2021-11-17 03:11:00 Aura Atkinson [facility] RAPID STREP SCREEN FOR GROUP A 2021-11-17 03:11:00 Aura Atkinson [facility] RAPID INFLUENZA A/B 2021-11-17 03:11:00 Aura Atkinson [facility] COVID-19 (ID NOW RAPID TESTING) 2021-11-17 03:11:00 Aura Atkinson [facility] NOTICE OF PRIVACY PRACTICES 2021-11-17 02:28:47 Doctor Unassigned, Pepper Pike [facility] CONSENT/REFUSAL FOR DIAGNOSIS AND TREATMENT 2021-11-17 02:27:24 Doctor Unassigned, Pepper Pike [facility] URINALYSIS 2020-08-07 23:45[facility] 2020-08-07 23:32:36 Carlos Farhat [facility] LIPASE 2020-08-07 22:36:00 [facility] 2020-08-07 22:36[facility]00 [facility] (31164[facility] (ALB,T.PRO,BILI T,BU/BC,ALT,AST,ALK PHOS) 2020-08-07 22:36:00 [facility] BASIC METABOLIC PANEL (NA, K, CL, CO2, GLUCOSE, BUN, CREATININE, CA) 2020-08-07 22:36:00 [facility] 2020-08-07 22:36:00 Farhat Lema [facility] CONSENT/REFUSAL FOR DIAGNOSIS AND TREATMENT 2020-08-07 22:03:28 Doctor Unassigned, Pepper Pike [facility] NOTICE OF PRIVACY PRACTICES 2020-08-07 22:03:13 Doctor Unassigned, Pepper Pike [facility] Encounters Start Date/Time End Date/Time Encounter Type Admission Type Attending Clinicians Care Facility Care Department Encounter ID Source 2021-11-16 21:36:00 2021-11-17 01:23:00 Emergency X AURA ATKINSON [facility] ERT [id number] [facility] 2021-11-16 21:36:00 2021-11-17 01:23:00 Emergency Aura Atkinson [facility] [id number] [facility] 2020-08-07 16:15:00 2020-08-07 19:14:00 Emergency Charo Lemaanne [facility] [id number] 2020-08-07 16:15:00 2020-08-07 19:14:00 Emergency Carlos Farhat [facility] [id number] [facility] 2020-08-07 16:03:00 2020-08-07 16:03:00 Emergency X FARHAT LEMA [facility] ERT [id number] [facility] Results Test Description Test Time Test Comments Results Result Co mments Source [facility] [id number] 03:39:00* Test Item Value Reference Range Interpretation Comme nts POCT PREG (test code = 1605) Negative On board controls acceptable with C Line (test code = 3574) Positive POCT PREG LOT # (test code = 3575) [id number] POCT PREG TEST DATE ( test code = 3576) 04/24/23 Lab Interpretation (test cod e = 87144-1) Normal [facility]MONONUCLEOSIS [id number] 03:34:37* Test Item Value Reference Range Interpretation Comme nts EBV Mononucleosis Screen (te st code = 2720424309) Negative Negative Lab Interpretation (test cod e = 95581-2) Normal [facility] METABOLIC PANEL (08051)2021-11-17 03:34:17* Test Item Value Reference Range Interpretation Comme nts NA (test code = 8840230863) 137 mmol/L 135-145 K (test code = 8571547621) 3.9 mmol/L 3.5-5.0 CL (test code = 7633594921) 101 mmol/L 98-108 CO2 TOTAL (test code = 3215983718) 23 mmol/L 23-31 AGAP (test code = 4970759198) 2-16 BUN (test code = 8398260825) 13 mg/dL 7-23 GLUCOSE (test code = 0591172010) 121 mg/dL 70-110 H CREATININE (test code = 1752054619) 0.51 mg/dL 0.50-1.04 TOTAL BILI (test code = 1951168425) 0.7 mg/dL 0.1-1.1 CALCIUM (test code = 6717638438) 9.6 mg/dL 8.6-10.6 T PROTEIN (test code = 6387270901) 8.0 g/dL 6.3-8.2 ALBUMIN (test code = 6211319212) 4.9 g/dL 3.5-5.0 ALK PHOS (test code = 7624318675) 105 U/L 34-122 ALTv (test code = 1742-6) 24 U/L 5-35 AST(SGOT) (test code = 4464251794) 30 U/L 13-40 eGFR (test code = 6282849868) mL/min/1.73m2 KELLIE (test code = KELLIE) Association [...] imaging tests). Lab Interpretation (test code = 51073-0) Abnormal [facility]2022-05-26 03:33:36* Test Item Value Reference Range Interpretation Comme nts LIPASE (test code = 5650069511) 16 U/L 0-220 Lab Interpretation (test cod e = 01651-9) Normal [facility] HospitalUrinalysis2021-02-14 00:11:00* Test Item Value Reference Range Interpretation Comme nts APPEARANCE (test code = 5382442300) Clear Clear COLOR (test code = 3672647786) Yellow Yellow PH (test code = 9263192156) 4.8-8.0 SP GRAVITY (test code = 2197911330) 1.003-1.030 GLU U QUAL (test code = 3707483542) Normal Normal BLOOD (test code = 9488288833) Negative Negative KETONES (test code = 1389490968) 5 mg/dL Negative A PROTEIN (test code = 2887-8) Negative Negative UROBILIN (test code = 4873399804) Normal Normal BILIRUBIN (test code = 0300093974) Negative Negative NITRITE (test code = 8004935446) Negative Negative LEUK PHILLIP (test code = 6322822773) Negative Negative RBC/HPF (test code = 6267795538) See_Comment [Loaded [employer]ocket] The system which generated this result transmitted reference range: 0 - 3 HPF. The reference range was not used to interpret this result as normal/abnormal. WBC/HPF (test code = 2116285478) See_Comment [Loaded Pocket] The system which generated this result transmitted reference range: 0 - 5 HPF. The reference range was not used to interpret this result as normal/abnormal. BACTERIA (test code = 4018289814) Few Negative A MUCOUS (test code = 2314370421) Slight Negative LPF A SQ EPITH (test code = 8723865557) HPF Lab Interpretation (test code = 13108-9) Abnormal [facility] P[facility] W [id number] 23:41:16No acute abnormality in the abdomen or [...] abdomen or pelvis to explain right lowerquadrant pain.[facility] HospitalPregnancy Test, Serum 2020-08-07 23:10:00* Test Item Value Reference Range Interpretation Comme nts PREG SERUM (test code = 4075549138) Negative KELLIE (test code = KELLIE) Less than 10 IU/L. ?If low titer or ectopic is suspected, resubmit specimen in 48-72 hours. [facility] HospitalBasi Metabolic Panel (NA, K, CL, CO2, GLUCOSE, BUN, CREATININE, CA)2020-08-07 22:59:00* Test Item Value Reference Range Interpretation Comme nts NA (test code = 7783741133) 138 mmol/L 135-145 K (test code = 6147458151) 4.6 mmol/L 3.5-5 CL (test code = 5657009147) 100 mmol/L 98-108 CO2 TOTAL (test code = 9396819349) 28 mmol/L 23-31 AGAP (test code = 2336043953) 2-16 BUN (test code = 7801389885) 15 mg/dL 7-23 GLUCOSE (test code = 3603318506) 100 mg/dL 70-110 CREATININE (test code = 7785056462) 0.75 mg/dL 0.5-1.04 CALCIUM (test code = 7310188755) 9.9 mg/dL 8.6-10.6 KELLIE (test code = [...] imaging tests). Lab Interpretation (test code = 35558-3) Normal [facility] HospitalHepatic Function Panel (ALB, T.PRO, BILI T, BU/BC, ALT, AST, ALK PHOS)2020-08-07 22:59:00* Test Item Value Reference Range Interpretation Comme nts TOTAL BILI (test code = 7637945934) 0.6 mg/dL 0.1-1.1 BILI UNCON (test code = 3888963337) 0.5 mg/dL 0.1-1.1 BILI CONJ (test code = 2796127778) 0.0 mg/dL 0-0.3 T PROTEIN (test code = 2215357830) 8.7 g/dL 6.3-8.2 H ALBUMIN (test code = 5741439025) 5.3 g/dL 3.5-5 H ALK PHOS (test code = 8912433354) 91 U/L 34-122 ALTv (test code = 1742-6) 10 U/L 5-35 AST(SGOT) (test code = 7984583832) 20 U/L 13-40 Lab Interpretation (test cod e = 60834-9) Abnormal [facility] HospitalLipase [id number] 22:59:00* Test Item Value Reference Range Interpretation Comme nts LIPASE (test code = 0994446406) 40 U/L 0-220 Lab Interpretation (test cod e = 23610-3) Normal [facility] HospitalCBC with [id number] 22:52:00* Test Item Value Reference Range Interpretation Comme nts WBC (test code = 6690-2) See_Comment [[employer]ated [employer]] The system which generated this result transmitted reference range: 4.50 - 13.50 10*3/?L. The reference range was not used to interpret this result as normal/abnormal. RBC (test code = 789-8) See_Comment [[employer]] The system which generated this result [...] 33.2 g/dL 32-36 RDW-SD (test code = 71890-7) 40.4 fL 38.5-49 RDW-CV (test code = 788-0) 12.4 % 11.5-14 PLT (test code = 777-3) See_Comment [[employer]] The system which generated this result transmitted reference range: 135 - 361 10*3/?L. The reference range was not used to interpret this result as normal/abnormal. MPV (test code = 53004-1) 10.4 fL 9.4-13.3 NRBC/100 WBC (test code = 6688737863) See_Comment [Automated [employer]] The system which generated this result transmitted reference range: 0.0 - 10.0 /100 WBCs. The reference range was not used to interpret this result as normal/abnormal. NRBC x10^3 (test code = 2885011499) <0.01 See_Comment [Automated me ssage] The system which generated this result transmitted reference range: 10*3/?L. The reference range was not used to interpret this result as normal/abnormal. GRAN MAT (NEUT) % (test code = 770-8) 61.7 % IMM GRAN % (test code = 6888631395) 0.20 % LYMPH % (test code = 736-9) 31.9 % MONO % (test code = 5905-5) 5.0 % EOS % (test code = 713-8) 0.9 % BASO % (test code = 706-2) 0.3 % GRAN MAT x10^3(ANC) (test code = 9751043960) 3.91 10*3/uL 1.5-10.3 IMM GRAN x10^3 (test code = 6628851062) <0.03 0-0.06 LYMPH x10^3 (test code = 731-0) 2.02 10*3/uL 0.7-7.4 MONO x10^3 (test code = 742-7) 0.32 10*3/uL 0-0.5 EOS x10^3 (test code = 711-2) 0.06 10*3/uL 0-0.4 BASO x10^3 (test code = 704-7) <0.03 0-0.1 [facility]"
--- NOTE | 2024-07-20 02:19 | ER ---
Nurse's Notes [facility] Name: Roxann Henriquez Age: 19 yrs Sex: Female : 2005 Arrival Date: 07/20/2024 Time: 00:41 Bed 21 Private MD: Diagnosis: Encounter for attention to dressings, sutures and drains-removal and replacement of left elbow splint Presentation: 07/20 01:08 Chief complaint: Patient states: left shoulder dislocation on 07/09 and the splint is lg3 rubbing my arm. i want a new one. Coronavirus screen: Client denies travel out of the [place] in the last 14 days. At this time, the client does not indicate any symptoms associated with coronavirus-19. Ebola Screen: No symptoms or risks identified at this time. Initial Sepsis Screen: Does the patient meet any 2 criteria? No. Patient's initial sepsis screen is negative. Does the patient have a suspected source of infection? No. Patient's initial sepsis screen is negative. Risk Assessment: Do you want to hurt yourself or someone else? Patient reports no desire to harm self or others. Onset of symptoms is unknown. 01:08 Method Of Arrival: Ambulatory lg3 01:08 Acuity: PAULETTE 5 lg3 Triage Assessment: 01:10 General: Appears in no apparent distress. comfortable, Behavior is calm, cooperative. lg3 Pain: Denies pain. EENT: No deficits noted. No signs and/or symptoms were reported regarding the EENT system. Neuro: No deficits noted. Perry Agitation-Sedation Scale (RASS): 0 - Alert and Calm Level of Consciousness is awake, alert, obeys commands, Oriented to person, place, time, situation. Cardiovascular: No deficits noted. Denies chest pain, shortness of breath, Capillary refill < 3 seconds Clubbing of nail beds is absent JVD is absent Patient's skin is warm and dry. Respiratory: No deficits noted. Airway is patent Respiratory effort is even, unlabored, Respiratory pattern is regular, symmetrical. GI: No deficits noted. No signs and/or symptoms were reported involving the gastrointestinal system. : No signs and/or symptoms were reported regarding the genitourinary system. Derm: Skin is intact, is healthy with good turgor, Skin is dry, Skin is normal, Skin temperature is warm Reports burning, itching. Musculoskeletal: No deficits noted. Circulation, motion, and sensation intact. Range of motion: intact in all extremities. RANGE MASTER: 01:10 LMP 05/2024, unknown lg3 Historical: - Allergies: 01:10 Etomidate; lg3 - Home Meds: 01:10 None [Active]; lg3 - PMHx: 01:10 Asthma; Schizophrenia; strep throat; lg3 - PSHx: 01:10 Myringotomy and insertion of tympanic ventilation tube; lg3 - Immunization history:: Adult Immunizations up to date. - Infectious Disease History:: Denies. - Social history:: Smoking status: Reported history of juuling and/or vaping. Patient uses alcohol, only on a social basis. street drugs, marijuana. Screenin:12 [place] [facility] Fall Risk Assessment (Adult) History of falling in the last 3 months, lg3 including since admission No falls in past 3 months (0 pts) Confusion or Disorientation No (0 pts) Intoxicated or Sedated No (0 pts) Impaired Gait No (0 pts) Mobility Assist Device Used No (0 pt) Altered Elimination No (0 pt) Score/Fall Risk Level 0 - 2 = Low Risk Oriented to surroundings, Maintained a safe environment, Educated pt \T\ family on fall prevention, incl call for assistance when getting out of bed, Assessed \T\ reinforced patient's understanding of fall precautions. Abuse screen: Denies threats or abuse. Denies injuries from another. Nutritional screening: No deficits noted. Tuberculosis screening: No symptoms or risk factors identified. Assessment: 01:12 General: see triage assessment. lg3 02:38 Reassessment: Patient appears in no apparent distress at this time. No changes from lg3 previously documented assessment. Patient and/or family updated on plan of care and expected duration. Pain level reassessed. Patient is alert, oriented x 3, equal unlabored respirations, skin warm/dry/pink. Patient states feeling better. Patient states symptoms have improved. Vital Signs: 01:08 BP 112 / 79; Pulse 74; Resp 16 S; Temp 98.4(O); Pulse Ox 100% on R/A; Weight 68.04 kg lg3 (R); Height 5 ft. 1 in. (R); Pain 0/10; 02:38 BP 117 / 77; Pulse 71; Resp 16 S; Pulse Ox 100% on R/A; lg3 01:08 Body Mass Index 28.34 (68.04 kg, 154.94 cm) lg3 01:08 Pain Scale: Adult lg3 ED Course: 00:43 Patient arrived in ED. jj6 00:49 Micky Echeverria PA is PHCP. cp 00:50 Micky Mathis MD is Attending Physician. cp 01:10 Triage completed. lg3 01:10 Arm band placed on right wrist. lg3 01:12 Patient has correct armband on for positive identification. Client placed on continuous lg3 cardiac and pulse oximetry monitoring. NIBP monitoring applied. Door closed. Noise minimized. Warm blanket given. Pillow given. 01:51 XRAY Elbow LEFT 3 view In Process Unspecified. EDMS 02:00 Provided Education on: follow up with orthopedic . ha1 02:09 Orthoglass splint: posterior long arm splint applied to the left arm. Sling applied to oe left arm. 02:17 Leon Londono MD is Referral Physician. cp 02:38 No provider procedures requiring assistance completed. Patient did not have IV access lg3 during this emergency room visit. Administered Medications: No medications were administered Medication: 01:12 VIS not applicable for this client. lg3 Outcome: 02:18 Discharge ordered by . cp 02:39 Discharged to home ambulatory, lg3 02:39 Condition: stable 02:39 Discharge instructions given to patient, Instructed on discharge instructions, follow up and referral plans. Demonstrated understanding of instructions, follow-up care, splint care, 02:39 Patient left the ED. lg3 Signatures: Dispatcher [employer] EDMI Micky Echeverria PA PA cp Espinosa, Orlando oe Able, Lacie, RN RN lg3 Pooja White jj6 Fawn Dowell, RN RN ha1
--- NOTE | 2024-07-20 02:19 | EDPHYS ---
Physician Documentation [facility] Name: Roxann Henriquez Age: 19 yrs Sex: Female : 2005 Arrival Date: 07/20/2024 Time: 00:41 Bed 21 Private MD: ED Physician Micky Mathis HPI: 07/20 01:15 This 19 yrs old Female presents to ER via Ambulatory with complaints of Arm Problem, cp Arm Injury. 01:15 The patient or guardian complains of remove and replace left posterior elbow splint. cp The complaints affect the left elbow. 01:15 Context: patient with history of left elbow dislocation injury sustained 07-09-2024 with cp reduction occurring in this ED. Patient admits she has not had f/u with ortho at this point and has splint on injured left arm that was placed on visit of 07-09-2024. Reports pain improved and is requesting replacement of splint. 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 - Infectious Disease History:: Denies. - Social history:: Smoking status: Reported history of juuling and/or vaping. Patient uses alcohol, only on a social basis. street drugs, marijuana. ROS: 01:20 Constitutional: history per hpi cp Exam: 02:16 Head/Face: Normocephalic, atraumatic. cp 02:16 Constitutional: The patient appears in no acute distress, alert, awake, comfortable, well developed, well nourished, 02:16 Neck: ROM/movement: pain, is not appreciated, limited range of motion, is not cp appreciated, 02:16 Chest/axilla: Inspection: normal, 02:16 Cardiovascular: Rate: normal, Pulses: Pulses are 2+ in left radial artery. JVD: is not appreciated, 02:16 Respiratory: the patient does not display signs of respiratory distress, Respirations: normal, no use of accessory muscles, no retractions, labored breathing, is not present, Breath sounds: are clear throughout, no decreased breath sounds, no stridor, no wheezing, 02:16 Abdomen/GI: Inspection: abdomen appears normal, 02:16 Back: pain, is absent, ROM is normal, 02:16 Musculoskeletal/extremity: Extremities: noted in the left arm: posterior elbow in splint that appears disheveled. splint removed and mild swelling of elbow, mild pain with extension, skin intact with no erythema, Vital Signs: 01:08 BP 112 / 79; Pulse 74; Resp 16 S; Temp 98.4(O); Pulse Ox 100% on R/A; Weight 68.04 kg lg3 (R); Height 5 ft. 1 in. (R); Pain 0/10; 02:38 BP 117 / 77; Pulse 71; Resp 16 S; Pulse Ox 100% on R/A; lg3 01:08 Body Mass Index 28.34 (68.04 kg, 154.94 cm) lg3 01:08 Pain Scale: Adult lg3 Procedures: 02:20 Splinting: Splint applied to left elbow using Orthoglass splint, posterior elbow. cp applied by tech. Examined by me, post splint application: neurovascular intact, Patient tolerated well. MDM: 01:11 Medical Screening Exam initiated paola 02:18 Data reviewed: vital signs, nurses notes, radiologic studies, plain films, and as a cp result, I will discharge patient. 02:18 Counseling: I had a detailed discussion with the patient and/or guardian regarding the cp historical points, exam findings, and any diagnostic results supporting the discharge/admit diagnosis, radiology results, the need for outpatient follow up, a orthopedic surgeon. Response to treatment: the patient's symptoms have markedly improved after treatment, and as a result, I will discharge patient. 07/20 01:22 Order name: XRAY Elbow LEFT 3 view cp 07/20 01:15 Order name: Splint - Elbow - Posterior; Complete Time: 02:12 cp Administered Medications: No medications were administered Disposition Summary: 07/20/24 02:18 Discharge Ordered Notes: Location: Home cp Problem: new cp Symptoms: have improved cp Condition: Stable cp Diagnosis - Encounter for attention to dressings, sutures and drains - removal and replacement cp of left elbow splint Followup: cp - With: Leon Londono MD - When: 5 - 6 days - Reason: Recheck today's complaints Discharge Instructions: - Discharge Summary Sheet cp - Cast or Splint Care, Adult cp Forms: - Medication Reconciliation Form cp - Antibiotic Education cp - Prescription Opioid Use cp - Patient Portal Instructions cp - Leadership Thank You Letter cp Addendum: 07/22/2024 14:17 Co-signature as Attending Physician, Micky Mathis MD I agree with the assessment and c fowler plan of care. Signatures: Dispatcher [employer] EDMicky Abreu MD MD cha Page, Corey, PA PA cp Able, Lacie, RN RN lg3
--- NOTE | 2024-07-20 02:57 | RAD REPORT ---
EXAM: XR Left Elbow Complete, 3 or More Views CLINICAL HISTORY: The patient is 19 years old and is Female; PAIN TECHNIQUE: Frontal, lateral and oblique views of the left elbow. COMPARISON: No relevant prior studies available. FINDINGS: BONES/JOINTS: Unremarkable. No acute fracture. No dislocation. SOFT TISSUES: Soft tissue swelling about the posterior aspect of the forearm is present. IMPRESSION: Soft tissue swelling about the posterior aspect of the forearm is present. No underlying acute joshua ny abnormality. Electronically signed by: Merna Menendez MD 07/20/2024 02:33 AM [facility] Due to temporary technical issues with the PACS/OmPrompt reporting system, reports are being juan d by the in-house radiologist without review as a courtesy to ensure prompt reporting the interpreting radiologist is fully responsible for the content of the report. Transcribed Date/Time: 07/20/2024 2:57 AM
[2024-07-20 06:08] VITALS: TEMP 98.4; O2SAT 100
[2024-07-20 06:10] VITALS: BP 117/77
== END 2024-07-20 02:39 | disposition home or self-care (01) ==
LOC: ER 00:41
PROC: 2W0BX1Z Change Splint on Left Upper Arm (ICD-10-PCS; principal; 2024-07-20)
DX: Z46.89 Encounter for fitting and adjustment of other specified devices (principal)
CPT/HCPCS: 99283

== ENCOUNTER 2024-07-24 17:24 | Emergency (ER) | payer SELFPAY ==
--- OUTSIDE RECORDS SUMMARY | 2024-07-24 17:27 | XMS REPORT | Continuity of Care Document ---
Author Name Unknown Address [address] [facility] [address]. [address] [place] [address] [facility] Address [address] [facility]. [address] [place] [address] Care Team Providers Care Technical Professional Name Role Phone CLARE SARMIENTO Primary Care Physician Unavailab AURA Flores Attending Clinician Unavailable Aura Atkinson MD Attending Clinician Farhat Page Attending Clinician [phone] FARHAT LEMA Attending Clinician Unavailable AURA ATKINSON Admitting Clinician Unavailable Payers Payer Name Policy Type Policy Number Effective Date Expirati on Date Source [facility] MEDICAID [id number] 2021 00:00:00 Problems Condition Name Condition Details Condition Category Status Onset Date Resolution Date Last Treatment Date Treating Clinician Comments Source No known active problems No known active problems Disease [facility] Allergies, Adverse Reactions, Alerts Allergy Name Allergy Type Status Severity Reaction(s) Onset Date Inactive Date Treating Clinician Comments Source NO KNOWN ALLERGIE S Drug Class Active [facility] Social History Social Habit Start Date Stop Date Quantity Comments Source Exposure to SARS-CoV-2 (event) 2021-11-06 00:00:00 2021-11-16 21:37:00 Not sure [facility] Sex Assigned At 2005 00:00:00 2005 00:00:00 [facility] Smoking Status Start Date Stop Date Source Unknown if ever smoked [facility] Medications Ordered Medication Name Filled Medication Name Start Date Stop Date Current Medication? Ordering Clinician Indication Dosage Frequency Signature (SIG) Comments Components Source lidocaine 2% viscous (LIDOCAINE VISCOUS) 2 % solution 10 mL 11-17 07:15: 00 11-17 06:09 :00 No 10mL 10 mL, Oral, ONCE, 1 dose, On Marium 11/17/21 at 0215, ANAT [facility] iopamidol (ISOVUE 370-500 mL) injection 120 mL 11-17 06:15: 00 11-17 05:06 :00 No [id number] 120mL 120 mL, Intravenou s, ONCE, 1 dose, On Marium 11/17/21 at 0115, Routine [facility] FENTanyl PF (SUBLIMAZE (PF)) injection 50 mcg 11-17 05:30: 00 11-17 04:38 :00 No 50ug 50 mcg, Slow IV Push, ONCE, 1 dose, On Marium 11/17/21 at 0030, Routine [facility] cefTRIAXone (ROCEPHIN) 1,000 mg in NaCl 0.9% (NS) 50 mL MINI-BAG 11-17 05:30: 00 11-17 06:10 :00 No 1000mg 1,000 mg, IV Piggyback, ONCE, 1 dose, On Marium 11/17/21 at 0030, Administer over 30 Minutes, 50 mL
Reas on for Anti-Infec tive: Documented Infection< br>Documen ru Infection Site: Urine
D uration of Therapy: Other (see Comments) [facility] ondansetron (ZOFRAN (PF)) injection 4 mg 11-17 05:00: 00 11-17 03:59 :00 No 4mg 4 mg, Slow IV Push, ONCE, 1 dose, On Marium 11/17/21 at 0000, ANAT [facility] ketorolac (TORADOL) injection 30 mg 11-17 04:45: 00 11-17 03:46 :00 No 30mg 30 mg, Slow IV Push, ONCE, 1 dose, On Sun11/16/21 at 2345, Routine
choir member approving Restricted medication : AURA ATKINSON [facility] NaCl 0.9% (NS) IV infusion 1,000 mL 11-17 04:15: 00 Yes 1000mL at 999 mL/hr, Intravenou s, CONTINUOUS , Starting on Sun11/16/21 at 2315, Until Discontinu ed, Routine [facility] lidocaine 2% viscous 2 % solution 11-17 00:00: 00 Yes [id number] 15mL Take 15 mL by mouth every 4 (four) hours as needed for Local anesthesia or Oral mucosal pain. [facility] ondansetron (ZOFRAN) 4 mg tablet 11-17 00:00: 00 Yes [id number] 4mg Take 1 tablet by mouth every 8 (eight) hours as needed for Nausea and Vomiting (N/V). [facility] dicyclomine 20 mg tablet 11-17 00:00: 00 Yes [id number] 20mg Take 1 tablet by mouth every 6 (six) hours as needed for Abdominal pain. [facility] amoxicillin -clavulanat e 875-125 mg per tablet 11-17 00:00: 00 Yes [id number] 1{tbl} Take 1 tablet by mouth every 12 (twelve) hours. [facility] doxycycline hyclate (Vibramycin ) capsule 100 mg 08-08 01:45: 00 08-08 00:40 :00 No 100mg 100 mg, Oral, ONCE, 1 dose, 08/07/20 at 1945, ANAT
Re ason for Anti-Infec tive: Empiric Therapy for Suspected Infection< br>Empiric Therapy Site: Pelvic
Duration of therapy: 72 hours [facility] cefTRIAXone (ROCEPHIN) injection 500 mg 08-08 01:45: 00 08-08 00:40 :00 No 500mg 500 mg, Intramuscu lar, ONCE, 1 dose, 08/07/20 at 1945, ANAT
Re ason for Anti-Infec tive: Documented Infection< br>Documen ru Infection Site: Pelvic
Duration of Therapy: 7 days [facility] ondansetron (ZOFRAN-ODT ) disintegrat ing tablet 4 mg 08-08 01:15: 00 08-08 00:20 :00 No 4mg 4 mg, Oral, ONCE, 1 dose, 08/07/20 at 1915, Routine [facility] dicyclomine (BENTYL) tablet 20 mg 08-08 01:15: 00 08-08 00:20 :00 No 20mg 20 mg, Oral, ONCE NOW, 1 dose, 08/07/20 at 1915, ANAT [facility] ketorolac (TORADOL) injection 30 mg 08-08 01:15: 00 08-08 00:20 :00 No 30mg 30 mg, Slow IV Push, ONCE, 1 dose, 08/07/20 at 1915, ANAT
Fa culty member approving Restricted medication : EMERGENCY ROOM, [facility] iohexol (OMNIPAQUE 350 BULK-100 mL) injection 100 mL 08-07 23:45: 00 08-07 23:25 :00 No 100mL 100 mL, Intravenou s, ONCE, 1 dose, 08/07/20 at 1745, Routine [facility] morpHINE injection 4 mg 08-07 23:30: 00 08-07 23:12 :00 No 4mg 4 mg, Slow IV Push, ONCE, 1 dose, 08/07/20 at 1730, STAT [facility] ondansetron (ZOFRAN (PF)) injection 4 mg 08-07 23:30: 00 08-07 23:30 :00 No 4mg 4 mg, Slow IV Push, ONCE, 1 dose, 08/07/20 at 1730, ANAT [facility] NaCl 0.9% (NS) bolus infusion 1,000 mL 08-07 22:30: 00 08-08 00:57 :00 No 1000mL at 999 mL/hr, 1,000 mL, IV Infusion, ONCE, 1 dose, 08/07/20 at 1630, ANAT [facility] ondansetron (ZOFRAN ODT) 4 mg disintegrat ing tablet 08-07 00:00: 00 Yes [id number] 4mg Take 1 tablet by mouth every 8 (eight) hours as needed for Nausea and Vomiting (N/V). [facility] doxycycline hyclate 100 mg capsule 08-07 00:00: 00 08-22 05:59 :00 No [id number] 100mg Take 1 capsule by mouth 2 (two) times daily for 14 days. [facility] Vital Signs Vital Name Observation Time Observation Value Comments S ource Systolic blood pressure 2021-11-17 06:00:00 143 mm[Hg] [facility] Diastolic blood pressure 2021-11-17 06:00:00 96 mm[Hg] [facility] Heart rate 2021-11-17 06:00:00 87 /min [facility] Respiratory rate 2021-11-17 06:00:00 18 /min [facility] Oxygen saturation in Arterial blood by Pulse oximetry 2021-11-17 06:00:00 99 /min [facility] Body temperature 2021-11-17 02:41:00 37.06 Reina [facility] Body height 2021-11-17 02:41:00 154.9 cm [facility] Body weight 2021-11-17 02:41:00 68.04 kg [facility] BMI 2021-11-17 02:41:00 28.34 kg/m2 [facility] Body mass index (BMI) [Percentile] Per age and sex 2021-11-17 02:41:00 91.87 % [facility] Systolic blood pressure 2020-08-07 23:15:00 123 mm[Hg] [facility] Diastolic blood pressure 2020-08-07 23:15:00 92 mm[Hg] [facility] Heart rate 2020-08-07 23:15:00 79 /min [facility] Respiratory rate 2020-08-07 23:15:00 20 /min [facility] Oxygen saturation in Arterial blood by Pulse oximetry 2020-08-07 23:15:00 100 /min [facility] Body temperature 2020-08-07 22:13:00 36.67 Reina [facility] Body weight 2020-08-07 22:13:00 66.679 kg [facility] Systolic blood pressure 2020-08-07 23:15:00 123 mm[Hg] [facility] Diastolic blood pressure 2020-08-07 23:15:00 92 mm[Hg] [facility] Heart rate 2020-08-07 23:15:00 79 /min [facility] Respiratory rate 2020-08-07 23:15:00 20 /min [facility] Oxygen saturation in Arterial blood by Pulse oximetry 2020-08-07 23:15:00 100 /min [facility] Body temperature 2020-08-07 22:13:00 36.67 Reina [facility] Body weight 2020-08-07 22:13:00 66.679 kg [facility] Procedures Procedure Date / Time Performed Performing Clinicia n Source CT ABDOMEN PELVIS W CONTRAST 2021-11-17 05:08:00 Aura Atkinson [facility] CBC WITH DIFF 2021-11-17 03:58:00 Aura Atkinson [facility] URINALYSIS 2021-11-17 03:39:00 Aura Atkinson [facility] POCT TEST 2021-11-17 03:39:00 Aura Atkinson [facility] LIPASE 2021-11-17 03:11:00 Aura Atkinson [facility] COMP. METABOLIC PANEL (23188) 2021-11-17 03:11:00 Aura Atkinson [facility] EBV-MONONUCLEOSIS SCREEN 2021-11-17 03:11:00 Aura Atkinson [facility] RAPID STREP SCREEN FOR GROUP A 2021-11-17 03:11:00 Aura Atkinson [facility] RAPID INFLUENZA A/B 2021-11-17 03:11:00 Aura Atkinson [facility] COVID-19 (ID NOW RAPID TESTING) 2021-11-17 03:11:00 Aura Atkinson [facility] NOTICE OF PRIVACY PRACTICES 2021-11-17 02:28:47 Doctor Unassigned, [place] [facility] CONSENT/REFUSAL FOR DIAGNOSIS AND TREATMENT 2021-11-17 02:27:24 Doctor Unassigned, [place] [facility] URINALYSIS 2020-08-07 23:45[facility] [facility] 2020-08-07 23:32:36 Carlos Farhat [facility] LIPASE 2020-08-07 22:36:[facility] 2020-08-07 [facility]:36[facility] (ALB,T.PRO,BILI T,BU/BC,ALT,AST,ALK PHOS) 2020-08-07 22:36:00 [facility] BASIC METABOLIC PANEL (NA, K, CL, CO2, GLUCOSE, BUN, CREATININE, CA) 2020-08-07 22:36:00 [facility]FF 2020-08-07 22:36:00 Farhat Lema [facility] CONSENT/REFUSAL FOR DIAGNOSIS AND TREATMENT 2020-08-07 22:03:28 Doctor Unassigned, [place] [facility] NOTICE OF PRIVACY PRACTICES 2020-08-07 22:03:13 Doctor Unassigned, [place] [facility] Encounters Start Date/Time End Date/Time Encounter Type Admission Type Attending Clinicians Care Facility Care Department Encounter ID Source 2021-11-16 21:36:00 2021-11-17 01:23:00 Emergency X AURA ATKINSON [facility] ERT [id number] [facility] 2021-11-16 21:36:00 2021-11-17 01:23:00 Emergency Aura Atkinson [facility] [id number] [facility] 2020-08-07 16:15:00 2020-08-07 19:14:00 Emergency Charo Lemaanne [facility] [id number] 2020-08-07 16:15:00 2020-08-07 19:14:00 Emergency Carlos Farhat [facility] [id number] [facility] 2020-08-07 16:03:00 2020-08-07 16:03:00 Emergency X FARHAT LEMA [facility] ERT [id number] [facility] Results Test Description Test Time Test Comments Results Result Co mments Source [facility] [id number] 03:39:00* Test Item Value Reference Range Interpretation Comme nts POCT PREG (test code = 1605) Negative On board controls acceptable with C Line (test code = 3574) Positive POCT PREG LOT # (test code = 3575) [id number] POCT PREG TEST DATE ( test code = 3576) 04/24/23 Lab Interpretation (test cod e = 71723-7) Normal [facility]MON[facility]UC[facility] [id number] 03:34:37* Test Item Value Reference Range Interpretation Comme nts EBV Mononucleosis Screen (te st code = 1741281033) Negative Negative Lab Interpretation (test cod e = 34673-2) Normal [facility]. METABOLIC PANEL (51287)2021-11-17 03:34:17* Test Item Value Reference Range Interpretation Comme nts NA (test code = 1610720869) 137 mmol/L 135-145 K (test code = 0372543229) 3.9 mmol/L 3.5-5.0 CL (test code = 5230316351) 101 mmol/L 98-108 CO2 TOTAL (test code = 1809251595) 23 mmol/L 23-31 AGAP (test code = 2444156435) 2-16 BUN (test code = 8066627864) 13 mg/dL 7-23 GLUCOSE (test code = 2714916521) 121 mg/dL 70-110 H CREATININE (test code = 7057104217) 0.51 mg/dL 0.50-1.04 TOTAL BILI (test code = 3004208871) 0.7 mg/dL 0.1-1.1 CALCIUM (test code = 6790613005) 9.6 mg/dL 8.6-10.6 T PROTEIN (test code = 4013394150) 8.0 g/dL 6.3-8.2 ALBUMIN (test code = 6670811576) 4.9 g/dL 3.5-5.0 ALK PHOS (test code = 8964058506) 105 U/L 34-122 ALTv (test code = 1742-6) 24 U/L 5-35 AST(SGOT) (test code = 9920161516) 30 U/L 13-40 eGFR (test code = 5514837768) mL/min/1.73m2 KELLIE (test code = KELLIE) Association [...] imaging tests). Lab Interpretation (test code = 42623-7) Abnormal [facility]2022-[facility] 03:33:36* Test Item Value Reference Range Interpretation Comme nts LIPASE (test code = 9276404048) 16 U/L 0-220 Lab Interpretation (test cod e = 68461-6) Normal [facility] CenterUrinalysis2021-02-14 00:11:00* Test Item Value Reference Range Interpretation Comme nts APPEARANCE (test code = 1884010639) Clear Clear COLOR (test code = 2728495036) Yellow Yellow PH (test code = 3935257639) 4.8-8.0 SP GRAVITY (test code = 3653967869) 1.003-1.030 GLU U QUAL (test code = 8258054455) Normal Normal BLOOD (test code = 8612783986) Negative Negative KETONES (test code = 5188501314) 5 mg/dL Negative A PROTEIN (test code = 2887-8) Negative Negative UROBILIN (test code = 3411131035) Normal Normal BILIRUBIN (test code = 2068876973) Negative Negative NITRITE (test code = 7559976375) Negative Negative LEUK PHILLIP (test code = 2073640867) Negative Negative RBC/HPF (test code = 4415554506) See_Comment [[employer]] The system which generated this result transmitted reference range: 0 - 3 HPF. The reference range was not used to interpret this result as normal/abnormal. WBC/HPF (test code = 8958186666) See_Comment [[employer]] The system which generated this result transmitted reference range: 0 - 5 HPF. The reference range was not used to interpret this result as normal/abnormal. BACTERIA (test code = 2343107654) Few Negative A MUCOUS (test code = 7596422550) Slight Negative LPF A SQ EPITH (test code = 9336690640) HPF Lab Interpretation (test code = 31769-2) Abnormal [facility] Center[facility] PEL[facility] W [id number] 23:41:16No acute abnormality in the abdomen or [...] abdomen or pelvis to explain right lowerquadrant pain.[facility] CenterPregnancy Test, Serum 2020-08-07 23:10:00* Test Item Value Reference Range Interpretation Comme nts PREG SERUM (test code = 8711997973) Negative KELLIE (test code = KELLIE) Less than 10 IU/L. ?If low titer or ectopic is suspected, resubmit specimen in 48-72 hours. [facility] CenterBasi Metabolic Panel (NA, K, CL, CO2, GLUCOSE, BUN, CREATININE, CA)2020-08-07 22:59:00* Test Item Value Reference Range Interpretation Comme nts NA (test code = 5830352169) 138 mmol/L 135-145 K (test code = 8466254059) 4.6 mmol/L 3.5-5 CL (test code = 4099208537) 100 mmol/L 98-108 CO2 TOTAL (test code = 7844511742) 28 mmol/L 23-31 AGAP (test code = 5268450612) 2-16 BUN (test code = 7378055774) 15 mg/dL 7-23 GLUCOSE (test code = 7649249372) 100 mg/dL 70-110 CREATININE (test code = 0772976525) 0.75 mg/dL 0.5-1.04 CALCIUM (test code = 8107943713) 9.9 mg/dL 8.6-10.6 KELLIE (test code = [...] imaging tests). Lab Interpretation (test code = 48920-5) Normal [facility] CenterHepatic Function Panel (ALB, T.PRO, BILI T, BU/BC, ALT, AST, ALK PHOS)2020-08-07 22:59:00* Test Item Value Reference Range Interpretation Comme nts TOTAL BILI (test code = 1468167101) 0.6 mg/dL 0.1-1.1 BILI UNCON (test code = 9933478526) 0.5 mg/dL 0.1-1.1 BILI CONJ (test code = 1817476438) 0.0 mg/dL 0-0.3 T PROTEIN (test code = 0859998853) 8.7 g/dL 6.3-8.2 H ALBUMIN (test code = 3809878857) 5.3 g/dL 3.5-5 H ALK PHOS (test code = 3887467179) 91 U/L 34-122 ALTv (test code = 1742-6) 10 U/L 5-35 AST(SGOT) (test code = 4627989312) 20 U/L 13-40 Lab Interpretation (test cod e = 53858-6) Abnormal [facility] CenterLipase [id number] 22:59:00* Test Item Value Reference Range Interpretation Comme nts LIPASE (test code = 1224405625) 40 U/L 0-220 Lab Interpretation (test cod e = 81589-2) Normal [facility] CenterCBC with [id number] 22:52:00* Test Item Value Reference Range Interpretation Comme nts WBC (test code = 6690-2) See_Comment [Automated [employer]] The system which generated this result transmitted reference range: 4.50 - 13.50 10*3/?L. The reference range was not used to interpret this result as normal/abnormal. RBC (test code = 789-8) See_Comment [Automated [employer]] The system which generated this result [...] 33.2 g/dL 32-36 RDW-SD (test code = 81599-3) 40.4 fL 38.5-49 RDW-CV (test code = 788-0) 12.4 % 11.5-14 PLT (test code = 777-3) See_Comment [Automated [employer]] The system which generated this result transmitted reference range: 135 - 361 10*3/?L. The reference range was not used to interpret this result as normal/abnormal. MPV (test code = 19435-7) 10.4 fL 9.4-13.3 NRBC/100 WBC (test code = 8412931975) See_Comment [Automated [employer] ssage] The system which generated this result transmitted reference range: 0.0 - 10.0 /100 WBCs. The reference range was not used to interpret this result as normal/abnormal. NRBC x10^3 (test code = 6765671025) <0.01 See_Comment [Automated me ssage] The system which generated this result transmitted reference range: 10*3/?L. The reference range was not used to interpret this result as normal/abnormal. GRAN MAT (NEUT) % (test code = 770-8) 61.7 % IMM GRAN % (test code = 1129119517) 0.20 % LYMPH % (test code = 736-9) 31.9 % MONO % (test code = 5905-5) 5.0 % EOS % (test code = 713-8) 0.9 % BASO % (test code = 706-2) 0.3 % GRAN MAT x10^3(ANC) (test code = 1955663017) 3.91 10*3/uL 1.5-10.3 IMM GRAN x10^3 (test code = 9236748612) <0.03 0-0.06 LYMPH x10^3 (test code = 731-0) 2.02 10*3/uL 0.7-7.4 MONO x10^3 (test code = 742-7) 0.32 10*3/uL 0-0.5 EOS x10^3 (test code = 711-2) 0.06 10*3/uL 0-0.4 BASO x10^3 (test code = 704-7) <0.03 0-0.1 [facility]"
[2024-07-24 19:09] LABS: Urine Bacteria <20 /HPF (<20); Urine Bilirubin NEGATIVE (Negative); Urine Blood Negative (Negative); Urine Clarity Extremely Turbid (Clear); Urine Color Light-Yellow (Yellow); Urine Culture Reflex Order NOT NEEDED; Urine Glucose NEGATIVE (Negative); Urine Ketones 1+ (Negative); Urine Microscopic Reflex YN ORDER UMIC; Urine Mucus Slight /HPF (None Seen); Urine Nitrite NEGATIVE (Negative); Urine Protein NEGATIVE (Negative); Urine RBC <5 /HPF (None Seen); Urine Urobilinogen 1+ (Normal); Urine WBC <5 /HPF (<5)
[2024-07-24 19:37] LABS: Barbiturates NEGATIVE (NEGATIVE); Benzodiazepines POSITIVE (NEGATIVE); Cocaine POSITIVE (NEGATIVE); METHAMPHETAM NEGATIVE (NEGATIVE); Methadone NEGATIVE (NEGATIVE); Opiates NEGATIVE (NEGATIVE); Phencyclidine NEGATIVE (NEGATIVE); THC Cannibis POSITIVE (NEGATIVE)
[2024-07-24 19:47] LABS: Absolute Eosinophils 0.3 K/uL (0-0.5); Absolute Lymphocytes (CBC) 1.9 K/uL (0.7-4.9); Absolute Monocytes 0.4 K/uL (0.1-1.3); Absolute Neutrophil 3.6 K/uL (1.8-8.0); Basophils % 0.8 % (0-1.3); Eosinophils % 5.2 % (0-4.4); Hematocrit 38.6 % (36.0-45.0); Hemoglobin 13.1 g/dL (12.0-15.0); Lymphocytes % 30.2 % (15.3-44.8); MCH 31.9 pg (27.0-35.0); MCHC 33.9 g/dL (32.0-36.0); MPV 8.5 fL (7.6-11.3); Monocytes % 6.2 % (3.3-12.3); Neutrophils % 57.6 % (41.7-73.7); Nucleated Red Blood Cells % 0.1 % (0-0); Platelets 265 thou/uL (152-406); RBC Red Blood Cell Count 4.11 M/uL (3.86-4.86); Red Cell Distribution Width 13.6 % (12.1-15.2)
[2024-07-24 19:50] LABS: PT Prothrombin Time 12.3 SECONDS (9.4-12.5); PTT, Activated Partial Thromb 33.9 SECONDS (24.3-36.9); Protime INR 1.17
[2024-07-24 19:58] LABS: ALT/SGPT 21 U/L (13-56); AST/SGOT 15 U/L (15-37); Albumin 3.9 g/dL (3.4-5.0); Albumin/Globulin Ratio 1.1 (1.1-1.8); Alkaline Phosphatase 83 U/L (45-117); Anion Gap 12.8 mEq/L (5.0-15.0); BUN Blood Urea Nitrogen 11 mg/dL (7-18); Bicarbonate 22 mEq/L (21-32); Bilirubin Direct 0.2 mg/dL (0-0.2); Bilirubin Indirect, Calculated 0.4 mg/dL (0.2-0.8); Bilirubin Total 0.6 mg/dL (0.2-1.0); Globulin 3.5 g/dL (2.3-3.5); Glomerular Filtration Rate 129 ml/min (=/>90); Glucose Level 91 mg/dL (74-106); Potassium 3.8 mEq/L (3.5-5.1); Protein, Total 7.4 g/dL (6.4-8.2); Sodium Level 137 mEq/L (136-145)
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
[2024-07-24] MEDS ORDERED: LORAZEPAM 1 MG TABLET ONE (22:50)
[2024-07-25] MEDS ORDERED: NICOTINE 21 MG/PAT TD ONE (08:59)
[2024-07-25] MEDS ORDERED: LORAZEPAM 1 MG TABLET ONE (09:00)
[2024-07-25 12:24] VITALS: BP 112/62; TEMP 98; O2SAT 100
== END 2024-07-25 12:09 ==
LOC: ER 17:24
DX: R45.851 Suicidal ideations (principal); F20.9 Schizophrenia, unspecified
CPT/HCPCS: 36415; 80048; 80076; 80143; 80179; 80307; 81001; 81025; 82077; 85025; 85610; 85730; 93005; 99285

== ENCOUNTER 2025-02-01 23:17 | Emergency (ER) | payer SELFPAY ==
--- OUTSIDE RECORDS SUMMARY | 2025-02-01 23:21 | XMS REPORT | Continuity of Care Document ---
Author Name Unknown Address [address] [facility] [place] [address] Organization [facility] [place] Address [address] [facility] [address] [place] [address] Care Team Providers Care Shipping And Receiving Specialist Name Role Phone CLARE SARMIENTO Primary Care Physician Unavailab CELIA Flores Attending Clinician Unavailable Celia Atkinson MD Attending Clinician Summer Page Attending Clinician [phone] SUMMER LEMA Attending Clinician Unavailable CELIA ATKINSON Admitting Clinician Unavailable Payers Payer Name Policy Type Policy Number Effective Date Expirati on Date Source FORMERLY [facility], 1928–1983 MEDICAID [id number] 2021 00:00:00 Problems Condition Name Condition Details Condition Category Status Onset Date Resolution Date Last Treatment Date Treating Clinician Comments Source No known active problems No known active problems Disease [facility] Allergies, Adverse Reactions, Alerts Allergy Name Allergy Type Status Severity Reaction(s) Onset Date Inactive Date Treating Clinician Comments Source NO KNOWN ALLERGIE S Drug Class Active [facility] Social History Social Habit Start Date Stop Date Quantity Comments Source Exposure to SARS-CoV-2 (event) 2021-11-06 00:00:00 2021-11-16 21:37:00 Not sure [facility] Sex Assigned At 2005 00:00:00 2005 00:00:00 [facility] Smoking Status Start Date Stop Date Source Unknown if ever smoked Un[facility] Medications Ordered Medication Name Filled Medication Name Start Date Stop Date Current Medication? Ordering Clinician Indication Dosage Frequency Signature (SIG) Comments Components Source lidocaine 2% viscous (LIDOCAINE VISCOUS) 2 % solution 10 mL 11-17 07:15: 00 11-17 06:09 :00 No 10mL 10 mL, Oral, ONCE, 1 dose, On Marium 11/17/21 at 0215, ANAT [facility] iopamidol (ISOVUE 370-500 mL) injection 120 mL 11-17 06:15: 00 11-17 05:06 :00 No [id number] 120mL 120 mL, Intravenou s, ONCE, 1 dose, On Marium 11/17/21 at 0115, Routine [facility] FENTanyl PF (SUBLIMAZE (PF)) injection 50 mcg 11-17 05:30: 00 11-17 04:38 :00 No 50ug 50 mcg, Slow IV Push, ONCE, 1 dose, On Marium 11/17/21 at 0030, Routine [facility] cefTRIAXone (ROCEPHIN) 1,000 mg in NaCl 0.9% (NS) 50 mL MINI-BAG 11-17 05:30: 00 11-17 06:10 :00 No 1000mg 1,000 mg, IV Piggyback, ONCE, 1 dose, On Marium 11/17/21 at 0030, Administer over 30 Minutes, 50 mL
Reas on for Anti-Infec tive: Documented Infection< br>Documen ru Infection Site: Urine
D uration of Therapy: Other (see Comments) [facility] ondansetron (ZOFRAN (PF)) injection 4 mg 11-17 05:00: 00 11-17 03:59 :00 No 4mg 4 mg, Slow IV Push, ONCE, 1 dose, On Marium 11/17/21 at 0000, ANAT [facility] ketorolac (TORADOL) injection 30 mg 11-17 04:45: 00 11-17 03:46 :00 No 30mg 30 mg, Slow IV Push, ONCE, 1 dose, On Sun11/16/21 at 2345, Routine
assembly member approving Restricted medication : CELIA ATKINSON [facility] NaCl 0.9% (NS) IV infusion 1,000 mL 11-17 04:15: 00 Yes 1000mL at 999 mL/hr, Intravenou s, CONTINUOUS , Starting on Sun11/16/21 at 2315, Until Discontinu ed, Routine [facility] lidocaine 2% viscous 2 % solution 11-17 00:00: 00 Yes [id number] 15mL Take 15 mL by mouth every 4 (four) hours as needed for Local anesthesia or Oral mucosal pain. [facility] ondansetron (ZOFRAN) 4 mg tablet 11-17 00:00: 00 Yes [id number] 4mg Take 1 tablet by mouth every 8 (eight) hours as needed for Nausea and Vomiting (N/V). [facility] dicyclomine 20 mg tablet 11-17 00:00: 00 Yes [id number] 20mg Take 1 tablet by mouth every 6 (six) hours as needed for Abdominal pain. [facility] amoxicillin -clavulanat e 875-125 mg per tablet 11-17 00:00: 00 Yes [id number] 1{tbl} Take 1 tablet by mouth every 12 (twelve) hours. [facility] doxycycline hyclate (Vibramycin ) capsule 100 mg 08-08 01:45: 00 08-08 00:40 :00 No 100mg 100 mg, Oral, ONCE, 1 dose, 08/07/20 at 1945, ANAT
Re ason for Anti-Infec tive: Empiric Therapy for Suspected Infection< br>Empiric Therapy Site: Pelvic
Duration of therapy: 72 hours [facility] cefTRIAXone (ROCEPHIN) injection 500 mg 08-08 01:45: 00 08-08 00:40 :00 No 500mg 500 mg, Intramuscu lar, ONCE, 1 dose, 08/07/20 at 1945, ANAT
Re ason for Anti-Infec tive: Documented Infection< br>Documen ru Infection Site: Pelvic
Duration of Therapy: 7 days [facility] ondansetron (ZOFRAN-ODT ) disintegrat ing tablet 4 mg 08-08 01:15: 00 08-08 00:20 :00 No 4mg 4 mg, Oral, ONCE, 1 dose, 08/07/20 at 1915, Routine [facility] dicyclomine (BENTYL) tablet 20 mg 08-08 01:15: 00 08-08 00:20 :00 No 20mg 20 mg, Oral, ONCE NOW, 1 dose, 08/07/20 at 1915, ANAT [facility] ketorolac (TORADOL) injection 30 mg 08-08 01:15: 00 08-08 00:20 :00 No 30mg 30 mg, Slow IV Push, ONCE, 1 dose, 08/07/20 at 1915, ANAT
Fa culty member approving Restricted medication : EMERGENCY ROOM, [facility] iohexol (OMNIPAQUE 350 BULK-100 mL) injection 100 mL 08-07 23:45: 00 08-07 23:25 :00 No 100mL 100 mL, Intravenou s, ONCE, 1 dose, 08/07/20 at 1745, Routine [facility] morpHINE injection 4 mg 08-07 23:30: 00 08-07 23:12 :00 No 4mg 4 mg, Slow IV Push, ONCE, 1 dose, 08/07/20 at 1730, STAT [facility] ondansetron (ZOFRAN (PF)) injection 4 mg 08-07 23:30: 00 08-07 23:30 :00 No 4mg 4 mg, Slow IV Push, ONCE, 1 dose, 08/07/20 at 1730, ANAT [facility] NaCl 0.9% (NS) bolus infusion 1,000 mL 08-07 22:30: 00 08-08 00:57 :00 No 1000mL at 999 mL/hr, 1,000 mL, IV Infusion, ONCE, 1 dose, 08/07/20 at 1630, ANAT [facility] ondansetron (ZOFRAN ODT) 4 mg disintegrat ing tablet 08-07 00:00: 00 Yes [id number] 4mg Take 1 tablet by mouth every 8 (eight) hours as needed for Nausea and Vomiting (N/V). [facility] doxycycline hyclate 100 mg capsule 08-07 00:00: 00 08-22 05:59 :00 No [id number] 100mg Take 1 capsule by mouth 2 (two) times daily for 14 days. [facility] Vital Signs Vital Name Observation Time Observation Value Comments S ource Systolic blood pressure 2021-11-17 06:00:00 143 mm[Hg] [facility] Diastolic blood pressure 2021-11-17 06:00:00 96 mm[Hg] [facility] Heart rate 2021-11-17 06:00:00 87 /min [facility] Respiratory rate 2021-11-17 06:00:00 18 /min [facility] Oxygen saturation in Arterial blood by Pulse oximetry 2021-11-17 06:00:00 99 /min [facility] Body temperature 2021-11-17 02:41:00 37.06 Reina [facility] Body height 2021-11-17 02:41:00 154.9 cm [facility] Body weight 2021-11-17 02:41:00 68.04 kg [facility] BMI 2021-11-17 02:41:00 28.34 kg/m2 [facility] Body mass index (BMI) [Percentile] Per age and sex 2021-11-17 02:41:00 91.87 % [facility] Systolic blood pressure 2020-08-07 23:15:00 123 mm[Hg] [facility] Diastolic blood pressure 2020-08-07 23:15:00 92 mm[Hg] [facility] Heart rate 2020-08-07 23:15:00 79 /min [facility] Respiratory rate 2020-08-07 23:15:00 20 /min [facility] Oxygen saturation in Arterial blood by Pulse oximetry 2020-08-07 23:15:00 100 /min [facility] Body temperature 2020-08-07 22:13:00 36.67 Reina [facility] Body weight 2020-08-07 22:13:00 66.679 kg [facility] Systolic blood pressure 2020-08-07 23:15:00 123 mm[Hg] [facility] Diastolic blood pressure 2020-08-07 23:15:00 92 mm[Hg] [facility] Heart rate 2020-08-07 23:15:00 79 /min [facility] Respiratory rate 2020-08-07 23:15:00 20 /min [facility] Oxygen saturation in Arterial blood by Pulse oximetry 2020-08-07 23:15:00 100 /min [facility] Body temperature 2020-08-07 22:13:00 36.67 Reina [facility] Body weight 2020-08-07 22:13:00 66.679 kg [facility] Procedures Procedure Date / Time Performed Performing Clinicia n Source CT ABDOMEN PELVIS W CONTRAST 2021-11-17 05:08:00 Celia Atkinson [facility] CBC WITH DIFF 2021-11-17 03:58:00 Celia Atkinson [facility] URINALYSIS 2021-11-17 03:39:00 Celia Atkinson [facility] POCT TEST 2021-11-17 03:39:00 Celia Atkinson [facility] LIPASE 2021-11-17 03:11:00 Celia Atkinson [facility] COMP. METABOLIC PANEL (85998) 2021-11-17 03:11:00 Celia Atkinson [facility] EBV-MONONUCLEOSIS SCREEN 2021-11-17 03:11:00 Celia Atkinson [facility] RAPID STREP SCREEN FOR GROUP A 2021-11-17 03:11:00 Celia Atkinson [facility] RAPID INFLUENZA A/B 2021-11-17 03:11:00 Celia Atkinson [facility] COVID-19 (ID NOW RAPID TESTING) 2021-11-17 03:11:00 Celia Atkinson [facility] NOTICE OF PRIVACY PRACTICES 2021-11-17 02:28:47 Doctor Unassigned, [place] [facility] CONSENT/REFUSAL FOR DIAGNOSIS AND TREATMENT 2021-11-17 02:27:24 Doctor Unassigned, [place] [facility] URINALYSIS 2020-08-07 23:45:[facility] 2020-08-07 23:32:36 [facility] 2020-08-07 22:36[facility] 2020-08-07 22:36:00 Charo Lema [facility] HEPATIC FUNCTION PANEL (52252) (ALB,T.PRO,BILI T,BU/BC,ALT,AST,ALK PHOS) 2020-08-07 22:36:00 Carlos [facility] BASIC METABOLIC PANEL (NA, K, CL, CO2, GLUCOSE, BUN, CREATININE, CA) 2020-08-07 22:36:00 Carlos [facility] CBC WITH DIFF 2020-08-07 22:36:00 Summer Lema [facility] CONSENT/REFUSAL FOR DIAGNOSIS AND TREATMENT 2020-08-07 22:03:28 Doctor Unassigned, [place] [facility] NOTICE OF PRIVACY PRACTICES 2020-08-07 22:03:13 Doctor Unassigned, [place] [facility] Encounters Start Date/Time End Date/Time Encounter Type Admission Type Attending Clinicians Care Facility Care Department Encounter ID Source 2021-11-16 21:36:00 2021-11-17 01:23:00 Emergency X CELIA ATKINSON [facility] ERT [id number] [facility] 2021-11-16 21:36:00 2021-11-17 01:23:00 Emergency Celia Atkinson [facility] [id number] [facility] 2020-08-07 16:15:00 2020-08-07 19:14:00 Emergency Charo Lemaanne [facility] [id number] 2020-08-07 16:15:00 2020-08-07 19:14:00 Emergency Carlos Summer [facility] [id number] [facility] 2020-08-07 16:03:00 2020-08-07 16:03:00 Emergency X SUMMER LEMA [facility] ERT [id number] [facility] Results Test Description Test Time Test Comments Results Result Co mments Source [facility] [id number] 03:39:00* Test Item Value Reference Range Interpretation Comme nts POCT PREG (test code = 1605) Negative On board controls acceptable with C Line (test code = 3574) Positive POCT PREG LOT # (test code = 3575) [id number] POCT PREG TEST DATE ( test code = 3576) 04/24/23 Lab Interpretation (test cod e = 90152-1) Normal [facility] Alliance[facility]BV-MONONUCLEOSIS [id number] 03:34:37* Test Item Value Reference Range Interpretation Comme nts EBV Mononucleosis Screen (te st code = 3774516416) Negative Negative Lab Interpretation (test cod e = 28609-5) Normal [facility]. METABOLIC PANEL (07468)2021-11-17 03:34:17* Test Item Value Reference Range Interpretation Comme nts NA (test code = 0684392183) 137 mmol/L 135-145 K (test code = 6542117939) 3.9 mmol/L 3.5-5.0 CL (test code = 7288739337) 101 mmol/L 98-108 CO2 TOTAL (test code = 4417342960) 23 mmol/L 23-31 AGAP (test code = 7633122581) 2-16 BUN (test code = 8912327120) 13 mg/dL 7-23 GLUCOSE (test code = 6527911661) 121 mg/dL 70-110 H CREATININE (test code = 1481389716) 0.51 mg/dL 0.50-1.04 TOTAL BILI (test code = 3202696136) 0.7 mg/dL 0.1-1.1 CALCIUM (test code = 0470591175) 9.6 mg/dL 8.6-10.6 T PROTEIN (test code = 4401235933) 8.0 g/dL 6.3-8.2 ALBUMIN (test code = 2732112150) 4.9 g/dL 3.5-5.0 ALK PHOS (test code = 2393948164) 105 U/L 34-122 ALTv (test code = 1742-6) 24 U/L 5-35 AST(SGOT) (test code = 2906220111) 30 U/L 13-40 eGFR (test code = 9668878538) mL/min/1.73m2 KELLIE (test code = KELLIE) Association [...] imaging tests). Lab Interpretation (test code = 17202-8) Abnormal [facility]2022-05-26 03:33:36* Test Item Value Reference Range Interpretation Comme nts LIPASE (test code = 4382925086) 16 U/L 0-220 Lab Interpretation (test cod e = 07474-9) Normal [facility] AllianceUrinalysis2021-02-14 00:11:00* Test Item Value Reference Range Interpretation Comme nts APPEARANCE (test code = 4989439613) Clear Clear COLOR (test code = 9755570520) Yellow Yellow PH (test code = 1696975289) 4.8-8.0 SP GRAVITY (test code = 1051142601) 1.003-1.030 GLU U QUAL (test code = 2816014400) Normal Normal BLOOD (test code = 5683840104) Negative Negative KETONES (test code = 9168813913) 5 mg/dL Negative A PROTEIN (test code = 2887-8) Negative Negative UROBILIN (test code = 0928609569) Normal Normal BILIRUBIN (test code = 5931761833) Negative Negative NITRITE (test code = 5522114324) Negative Negative LEUK PHILLIP (test code = 4524079874) Negative Negative RBC/HPF (test code = 3128464025) See_Comment [Feedback-Machine] The system which generated this result transmitted reference range: 0 - 3 HPF. The reference range was not used to interpret this result as normal/abnormal. WBC/HPF (test code = 3479836119) See_Comment [Feedback-Machine] The system which generated this result transmitted reference range: 0 - 5 HPF. The reference range was not used to interpret this result as normal/abnormal. BACTERIA (test code = 7638355694) Few Negative A MUCOUS (test code = 0504312304) Slight Negative LPF A SQ EPITH (test code = 3908959577) HPF Lab Interpretation (test code = 39698-6) Abnormal [facility] PELVIS W [id number] 23:41:16No acute abnormality in the abdomen or [...] abdomen or pelvis to explain right lowerquadrant pain.[facility] Alliance[facility]regnancy Test, Serum 2020-08-07 23:10:00* Test Item Value Reference Range Interpretation Comme nts PREG SERUM (test code = 5687433846) Negative KELLIE (test code = KELLIE) Less than 10 IU/L. ?If low titer or ectopic is suspected, resubmit specimen in 48-72 hours. [facility] (NA, K, CL, CO2, GLUCOSE, BUN, CREATININE, CA)2020-08-07 22:59:00* Test Item Value Reference Range Interpretation Comme nts NA (test code = 5995721533) 138 mmol/L 135-145 K (test code = 3392196773) 4.6 mmol/L 3.5-5 CL (test code = 9302895057) 100 mmol/L 98-108 CO2 TOTAL (test code = 4916013123) 28 mmol/L 23-31 AGAP (test code = 4435570874) 2-16 BUN (test code = 9659239632) 15 mg/dL 7-23 GLUCOSE (test code = 5751714964) 100 mg/dL 70-110 CREATININE (test code = 3633771562) 0.75 mg/dL 0.5-1.04 CALCIUM (test code = 3147587626) 9.9 mg/dL 8.6-10.6 KELLIE (test code = [...] imaging tests). Lab Interpretation (test code = 62529-7) Normal [facility] AllianceHepatic Function Panel (ALB, T.PRO, BILI T, BU/BC, ALT, AST, ALK PHOS)2020-08-07 22:59:00* Test Item Value Reference Range Interpretation Comme nts TOTAL BILI (test code = 0245649352) 0.6 mg/dL 0.1-1.1 BILI UNCON (test code = 7079556078) 0.5 mg/dL 0.1-1.1 BILI CONJ (test code = 7221794028) 0.0 mg/dL 0-0.3 T PROTEIN (test code = 3590784525) 8.7 g/dL 6.3-8.2 H ALBUMIN (test code = 5877743367) 5.3 g/dL 3.5-5 H ALK PHOS (test code = 9665411742) 91 U/L 34-122 ALTv (test code = 1742-6) 10 U/L 5-35 AST(SGOT) (test code = 6094568221) 20 U/L 13-40 Lab Interpretation (test cod e = 94498-0) Abnormal [facility] AllianceLipase [id number] 22:59:00* Test Item Value Reference Range Interpretation Comme nts LIPASE (test code = 0094856629) 40 U/L 0-220 Lab Interpretation (test cod e = 87692-3) Normal [facility] AllianceCBC with [id number] 22:52:00* Test Item Value Reference Range Interpretation Comme nts WBC (test code = 6690-2) See_Comment [Automated [employer]] The system which generated this result transmitted reference range: 4.50 - 13.50 10*3/?L. The reference range was not used to interpret this result as normal/abnormal. RBC (test code = 789-8) See_Comment [Automated messa ge] The system which [...] 33.2 g/dL 32-36 RDW-SD (test code = 18584-6) 40.4 fL 38.5-49 RDW-CV (test code = 788-0) 12.4 % 11.5-14 PLT (test code = 777-3) See_Comment [Automated messa ge] The system which generated this result transmitted reference range: 135 - 361 10*3/?L. The reference range was not used to interpret this result as normal/abnormal. MPV (test code = 12393-6) 10.4 fL 9.4-13.3 NRBC/100 WBC (test code = 3383363704) See_Comment [Automated [employer] ssage] The system which generated this result transmitted reference range: 0.0 - 10.0 /100 WBCs. The reference range was not used to interpret this result as normal/abnormal. NRBC x10^3 (test code = 2359314951) <0.01 See_Comment [Automated me ssage] The system which generated this result transmitted reference range: 10*3/?L. The reference range was not used to interpret this result as normal/abnormal. GRAN MAT (NEUT) % (test code = 770-8) 61.7 % IMM GRAN % (test code = 4258005094) 0.20 % LYMPH % (test code = 736-9) 31.9 % MONO % (test code = 5905-5) 5.0 % EOS % (test code = 713-8) 0.9 % BASO % (test code = 706-2) 0.3 % GRAN MAT x10^3(ANC) (test code = 9018262882) 3.91 10*3/uL 1.5-10.3 IMM GRAN x10^3 (test code = 4776715724) <0.03 0-0.06 LYMPH x10^3 (test code = 731-0) 2.02 10*3/uL 0.7-7.4 MONO x10^3 (test code = 742-7) 0.32 10*3/uL 0-0.5 EOS x10^3 (test code = 711-2) 0.06 10*3/uL 0-0.4 BASO x10^3 (test code = 704-7) <0.03 0-0.1 [facility]"
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
[2025-02-02 00:33] VITALS: BP 99/69; O2SAT 100
== END 2025-02-01 23:58 | disposition home or self-care (01) ==
LOC: ER 23:17
DX: R42 Dizziness and giddiness (principal); J45.20 Mild intermittent asthma, uncomplicated; Y04.8XXA Assault by other bodily force, initial encounter; F17.210 Nicotine dependence, cigarettes, uncomplicated
CPT/HCPCS: 99283

== ENCOUNTER 2025-02-13 19:51 | Emergency (ER) | payer SELFPAY ==
[2025-02-13] MEDS ORDERED: NA CHLORIDE 0.9% 1,000 ML ONE (20:17)
[2025-02-13 21:04] LABS: ALT/SGPT 46.0 U/L (13-56); Albumin 4.0 g/dL (3.4-5.0); Albumin/Globulin Ratio 1.1 (1.1-1.8); Alkaline Phosphatase 80.0 U/L (45-117); Anion Gap 8.0 mEq/L (5.0-15.0); BUN Blood Urea Nitrogen 11.0 mg/dL (7-18); Globulin 3.6 g/dL (2.3-3.5); Glucose Level 95.0 mg/dL (74-106); Lipase 24.0 U/L (13-75)
[2025-02-13 21:05] LABS: AST/SGOT 21.0 U/L (15-37); Potassium 4.0 mEq/L (3.5-5.1)
[2025-02-13 21:30] LABS: Sqamous Epithelial <5 /HPF (None Seen); Urine Culture Reflex Order NOT NEEDED; Urine Microscopic Reflex YN ORDER UMIC
--- NOTE | 2025-02-13 21:59 | RAD REPORT ---
EXAM: Chest Abd Pelvis Wo Con CLINICAL INDICATION: Female, 19 years old PAIN TECHNIQUE: CT chest, abdomen and pelvis was performed, without IV contrast, as per department protoco l. Axial, sagittal and coronal reconstructions were obtained. One or more of the following dose reduction techniques were used: Automated exposure control, adjustment of the mA and/or kV according to the patient size, and/or iterative reconstruction. Unless otherwise specified, incidental findings do not require dedicated imaging follow-up. [id number]. COMPARISON: No prior exams FINDINGS: The lack of intravenous contrast limits the sensitivity of this exam for evaluation of solid visceral organs, vascular structures, and retroperitoneum. ---THORAX--- LOWER NECK AND CHEST WALL: Visualized thyroid gland and soft tissues are normal. MEDIASTINUM AND LYMPH NODES: No mediastinal mass or fluid collection. Normal size mediastinal, hilar, and axillary lymph nodes. THORACIC AORTA: No thoracic aortic aneurysm. PULMONARY ARTERIES: Caliber is within normal limits. Unable to assess for pulmonary emboli without IV contrast. HEART: Normal heart size. No coronary calcifications.No significant pericardial effusion. LUNGS AND AIRWAYS: Airways are clear. No evidence of airspace or interstitial process. No suspicious and/or stable pulmonary nodules. PLEURA: No pleural effusion. No pneumothorax. ---ABDOMEN/PELVIS--- UPPER GI: No significant abnormality. LIVER: No significant focal abnormality. GALLBLADDER/BILE DUCTS: No biliary ductal dilatation.? PANCREAS: No mass, ductal dilation, or raya-pancreatic fluid. SPLEEN: Unremarkable. ADRENALS: No adrenal masses. KIDNEYS AND URETERS: No hydronephrosis.Limited evaluation for renal lesions in the absence of IV cont rast.No renal calculi.No ureteral calculi. ABDOMINAL AORTA AND OTHER VESSELS: Normal caliber aorta and IVC. PERITONEUM: No abnormal free fluid. No free air. LYMPH NODES: No pathologic lymphadenopathy. ABDOMINAL WALL: Unremarkable SMALL BOWEL/COLON: Small bowel has normal course and caliber. No colonic wall thickening or pericolon ic inflammatory changes.Normal appendix. Mild diverticulosis without diverticulitis. URINARY BLADDER: Underdistended but grossly unremarkable. REPRODUCTIVE ORGANS: Right adnexal cyst measuring 4 cm. <=5 cm: No follow-up imaging recommended ---COMBINED--- MUSCULOSKELETAL: No acute or suspicious osseous abnormality. ADDITIONAL FINDINGS: None. IMPRESSION: No acute findings within the chest, abdomen, or pelvis.
[2025-02-13 22:07] LABS: Absolute Lymphocytes (CBC) 1.8 K/uL (0.7-4.9); Hematocrit 38.3 % (36.0-45.0); Hemoglobin 13.0 g/dL (12.0-15.0); MCH 32.6 pg (27.0-35.0); MCHC 33.9 g/dL (32.0-36.0); MCV 96.3 fL (80-100); MPV 7.9 fL (7.6-11.3); Nucleated RBC Absolute Count 0.0 (0-0); Nucleated Red Blood Cells % 0.1 % (0-0); RBC Red Blood Cell Count 3.98 M/uL (3.86-4.86); White Blood Count 4.60 thou/uL (4.3-10.9)
--- NOTE | 2025-02-13 22:22 | ER ---
Nurse's Notes [facility] Name: Roxann Henriquez Age: 19 yrs Sex: Female : 2005 Arrival Date: 02/13/2025 Time: 19:51 Bed 17 Private MD: Diagnosis: Unspecified symptoms and signs involving the musculoskeletal system Presentation: 02/13 20:00 Chief complaint: Patient states: left mid back pain that started about a week ago and me1 worsened. Pain level 8/10. Coronavirus screen: At this time, the client does not indicate any symptoms associated with coronavirus-19. Ebola Screen: No symptoms or risks identified at this time. Initial Sepsis Screen: Does the patient meet any 2 criteria? No. Patient's initial sepsis screen is negative. Does the patient have a suspected source of infection? No. Patient's initial sepsis screen is negative. Risk Assessment: Do you want to hurt yourself or someone else? Patient reports no desire to harm self or others. Onset of symptoms is unknown. 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 - Infectious Disease History:: Denies. - Social history:: Smoking status: Reported history of juuling and/or vaping. - Family history:: not pertinent. Screenin:48 [facility] ED Fall Risk Assessment (Adult) History of falling in the last 3 months, tb4 including since admission No falls in past 3 months (0 pts) Confusion or Disorientation No (0 pts) Intoxicated or Sedated No (0 pts) Impaired Gait No (0 pts) Mobility Assist Device Used No (0 pt) Altered Elimination No (0 pt) Score/Fall Risk Level 0 - 2 = Low Risk Maintained a safe environment. Abuse screen: Denies threats or abuse. Denies injuries from another. Nutritional screening: No deficits noted. Tuberculosis screening: No symptoms or risk factors identified. Assessment: 20:48 Reassessment: Patient is alert, oriented x 3, equal unlabored respirations, skin tb4 warm/dry/pink. See triage note. General: Appears comfortable, Behavior is calm. Pain: Complains of pain in lumbar area, left low back and left mid back Pain does not radiate. Pain currently is 8 out of 10 on a pain scale. Quality of pain is described as aching, Pain began gradually, Patient states she has been having back pain since age 9 Is continuous, Alleviated by nothing. Neuro: Level of Consciousness is awake, alert, obeys commands, Oriented to person, place, time, situation, Moves all extremities. Full function Gait is steady, Speech is normal, Facial symmetry appears normal. Respiratory: Airway is patent Trachea Respiratory effort is even, unlabored, Respiratory pattern is regular, symmetrical. GI: No signs and/or symptoms were reported involving the gastrointestinal system. : No signs and/or symptoms were reported regarding the genitourinary system. EENT: No signs and/or symptoms were reported regarding the EENT system. Derm: No signs and/or symptoms reported regarding the dermatologic system. Musculoskeletal: No signs and/or symptoms reported regarding the musculoskeletal system. Circulation, motion, and sensation intact. Range of motion: intact in all extremities. 21:42 Reassessment: Patient is taken to CT scan. tb4 21:48 Reassessment: Patient has returned from CT Scan. tb4 Vital Signs: 20:00 BP 127 / 74; Pulse 84; Resp 16; Temp 98.2; Pulse Ox 98% ; Weight 72.57 kg; Height 5 ft. me1 1 in. ; Pain 8/10; 20:48 BP 117 / 65; Pulse 77; Resp 20; Temp 97.4(O); Pulse Ox 100% on R/A; Weight 72.57 kg tb4 (R); Height 5 ft. 1 in. ; Pain 8/10; 21:34 BP 115 / 74; Pulse 89; Resp 18; Pulse Ox 100% on R/A; Pain 8/10; tb4 22:17 BP 119 / 73; Pulse 81; Resp 17; Pulse Ox 100% on R/A; tb4 20:48 Body Mass Index 30.23 (72.57 kg, 154.94 cm) tb4 20:00 Pain Scale: Adult me1 20:48 Pain Scale: Adult tb4 21:34 Pain Scale: Adult tb4 ED Course: 19:53 Patient arrived in ED. jj6 20:04 Triage completed. me1 20:04 Arm band placed on Patient placed in an exam room. me1 20:05 Micky Mathis MD is Attending Physician. paola 20:10 Radiology exam delayed due to test not completed at this time. nj 20:48 Patient has correct armband on for positive identification. Bed in low position. Call tb4 light in reach. Adult w/ patient. Client placed on continuous cardiac and pulse oximetry monitoring. NIBP monitoring applied. Pulse ox on. Door closed. 20:48 Initial lab(s) drawn, by ED staff, sent to lab. tb4 21:00 Urine collected: clean catch specimen, sent to lab. ts3 21:12 Inserted saline lock: 20 gauge in right antecubital area, using aseptic technique. tb4 Blood collected. Flushed with 10 mL NS. 21:45 CT Chest Abdomen Pelvis W/O Contrast In Process Unspecified. EDMS 22:58 Provided Education on: Take medication as prescribed. tb4 22:58 No provider procedures requiring assistance completed. tb4 22:58 IV discontinued, intact, bleeding controlled, No redness/swelling at site. Pressure tb4 dressing applied. Administered Medications: 21:33 Drug: NS 0.9% IV 1000 ml IV at 1000 ml once; to be given as a bolus over 60 minutes tb4 Route: IV; Rate: 1000 ml; Site: right antecubital; 22:56 Follow up: Response: No adverse reaction; IV Status: Completed infusion tb4 Medication: 20:48 VIS not applicable for this client. tb4 Outcome: 22:21 Discharge ordered by . [facility] 22:29 Discharged to home ambulatory, tb4 22:29 Condition: stable 22:29 Discharge instructions given to patient, Instructed on discharge instructions, follow up and referral plans. no drinking with medication, Demonstrated understanding of instructions, follow-up care, medications, Prescriptions given X 1, 22:59 Patient left the ED. tb4 Signatures: Dispatcher [employer] Micky Mathis MD MD cha Jordan, Nathan nj Jeffries, Jennifer jj6 Marisol Oneill RN RN me1 Tanya Granda RN RN tb4 Sherman, Melissa ts3
--- NOTE | 2025-02-13 22:22 | EDPHYS ---
Physician Documentation [facility] Name: Roxann Henriquez Age: 19 yrs Sex: Female : 2005 Arrival Date: 02/13/2025 Time: 19:51 Bed 17 Private MD: JANETH Physician Micky Mathis HPI: 02/13 22:10 This 19 yrs old Female presents to ER via Ambulatory with complaints of Back paola Pain. 22:10 The patient presents with pain that is acute, with no known mechanism of injury, and paola decreased range of motion. The symptoms are located in the thoracic area, lumbar area and left mid back. Onset: The symptoms/episode began/occurred today. The pain does not radiate. Associated signs and symptoms: Pertinent positives: none. The problem was sustained from unknown cause. Modifying factors: The patient symptoms are alleviated by remaining still, the patient symptoms are aggravated by movement. Severity of symptoms: At their worst the symptoms were mild, moderate, yesterday. The patient has experienced similar episodes in the past, a few times. MSW: 20:04 LMP 02/13/2025, unknown me1 Historical: - Allergies: 20:04 Etomidate; me1 - PMHx: 20:04 Asthma; Autism; Bipolar disorder; Schizophrenia; depressive disorder; Split Personality me1 Disorder; strep throat; tourettes; - PSHx: 20:04 Myringotomy and insertion of tympanic ventilation tube; me1 - Immunization history:: Adult Immunizations up to date. - Infectious Disease History:: Denies. - Social history:: Smoking status: Reported history of juuling and/or vaping. - Family history:: not pertinent. ROS: 22:10 Constitutional: Negative for fever, chills, and weight loss, Eyes: Negative for injury, paola pain, redness, and discharge, ENT: Negative for injury, pain, and discharge, Neck: Negative for injury, pain, and swelling, Cardiovascular: Negative for chest pain, palpitations, and edema, Respiratory: Negative for shortness of breath, cough, wheezing, and pleuritic chest pain, Abdomen/GI: Negative for abdominal pain, nausea, vomiting, diarrhea, and constipation, : Negative for injury, bleeding, discharge, and swelling, MS/Extremity: Negative for injury and deformity, Skin: Negative for injury, rash, and discoloration, Neuro: Negative for headache, weakness, numbness, tingling, and seizure, Psych: Negative for depression, anxiety, suicide ideation, homicidal ideation, and hallucinations, Allergy/Immunology: Negative for hives, rash, and allergies, Endocrine: Negative for neck swelling, polydipsia, polyuria, polyphagia, and marked weight changes, Hematologic/Lymphatic: Negative for swollen nodes, abnormal bleeding, and unusual bruising, 22:10 Back: Positive for decreased range of motion, pain at rest, pain with movement, of the thoracic area, lumbar area and left mid back, Exam: 22:10 Constitutional: This is a well developed, well nourished patient who is awake, alert, paola and in no acute distress. Head/Face: Normocephalic, atraumatic. Eyes: Pupils equal round and reactive to light, extra-ocular motions intact. Lids and lashes normal. Conjunctiva and sclera are non-icteric and not injected. Cornea within normal limits. Periorbital areas with no swelling, redness, or edema. ENT: Nares patent. No nasal discharge, no septal abnormalities noted. Tympanic membranes are normal and external auditory canals are clear. Oropharynx with no redness, swelling, or masses, exudates, or evidence of obstruction, uvula midline. Mucous membranes moist. Neck: Trachea midline, no thyromegaly or masses palpated, and no cervical lymphadenopathy. Supple, full range of motion without nuchal rigidity, or vertebral point tenderness. No Meningismus. Chest/axilla: Normal chest wall appearance and motion. Nontender with no deformity. No lesions are appreciated. Cardiovascular: Regular rate and rhythm with a normal S1 and S2. No gallops, murmurs, or rubs. Normal PMI, no JVD. No pulse deficits. Respiratory: Lungs have equal breath sounds bilaterally, clear to auscultation and percussion. No rales, rhonchi or wheezes noted. No increased work of breathing, no retractions or nasal flaring. Abdomen/GI: Soft, non-tender, with normal bowel sounds. No distension or tympany. No guarding or rebound. No evidence of tenderness throughout. Skin: Warm, dry with normal turgor. Normal color with no rashes, no lesions, and no evidence of cellulitis. MS/ Extremity: Pulses equal, no cyanosis. Neurovascular intact. Full, normal range of motion., bilateral aka Neuro: Awake and alert, GCS 15, oriented to person, place, time, and situation. Cranial nerves II-XII grossly intact. Motor strength 5/5 in all extremities. Sensory grossly intact. Cerebellar exam normal. Normal gait. Psych: Awake, alert, with orientation to person, place and time. Behavior, mood, and affect are within normal limits. 22:10 Back: pain, that is moderate, ROM is normal, normal spinal alignment noted, CVA tenderness, is absent, muscle spasm, is not present, 22:10 Skin: no rash present. Vital Signs: 20:00 BP 127 / 74; Pulse 84; Resp 16; Temp 98.2; Pulse Ox 98% ; Weight 72.57 kg; Height 5 ft. me1 1 in. ; Pain 8/10; 20:48 BP 117 / 65; Pulse 77; Resp 20; Temp 97.4(O); Pulse Ox 100% on R/A; Weight 72.57 kg tb4 (R); Height 5 ft. 1 in. ; Pain 8/10; 21:34 BP 115 / 74; Pulse 89; Resp 18; Pulse Ox 100% on R/A; Pain 8/10; tb4 22:17 BP 119 / 73; Pulse 81; Resp 17; Pulse Ox 100% on R/A; tb4 20:48 Body Mass Index 30.23 (72.57 kg, 154.94 cm) tb4 20:00 Pain Scale: Adult me1 20:48 Pain Scale: Adult tb4 21:34 Pain Scale: Adult tb4 MDM: 20:05 Medical Screening Exam initiated paola 22:17 Differential diagnosis: Basilar Pneumonia chronic back pain, Fatigue Fracture paola Hydronephrosis Pyelonephritis ruptured disc, Scoliosis spinal injury, sprain, Ureterolithiasis vertebral fracture. Data reviewed: vital signs, nurses notes, lab test result(s), EKG, radiologic studies, CT scan. Consideration of Admission/Observation Escalation of care including admission/observation considered. I considered the following discharge prescriptions or medication management in the emergency department Medications were administered in the Emergency Department. See MAR. Independent interpretation of the following test(s) in the Emergency Department CT Scan: My interpretation is ct c/a/p. Historians other than the Patient: Spouse/Significant Other: sign other. Care significantly affected by the following chronic conditions: asthma, autism, bipolar, schizo, split person, depression. 02/13 20:07 Order name: UA Rfx Reji Cult if indicated; Complete Time: 22:06 [facility] 02/13 20:07 Order name: PREGU; Complete Time: 22:06 [facility] 02/13 20:07 Order name: CBC with Diff; Complete Time: 22:21 [facility] 02/13 20:07 Order name: CMP; Complete Time: 21:09 [facility] 02/13 20:07 Order name: Lipase; Complete Time: 21: [facility] 02/13 20:07 Order name: CT Chest Abdomen Pelvis W/O Contrast; Complete Time: 22:06 [facility] 02/13 20:50 Order name: Misc. Order: RECOLLECT OF PURPLE TOP; Complete Time: 21:33 sp Administered Medications: 21:33 Drug: NS 0.9% IV 1000 ml IV at 1000 ml once; to be given as a bolus over 60 minutes tb4 Route: IV; Rate: 1000 ml; Site: right antecubital; 22:56 Follow up: Response: No adverse reaction; IV Status: Completed infusion tb4 Disposition Summary: 02/13/25 22:21 Discharge Ordered Notes: Location: Home [facility] Problem: new [facility] Symptoms: have improved paola Condition: Stable paola Diagnosis - Unspecified symptoms and signs involving the musculoskeletal system paola Followup: paola - With: Private Physician - When: 2 - 3 days - Reason: Recheck today's complaints, Continuance of care, Re-evaluation by your physician Discharge Instructions: - Discharge Summary Sheet [facility] - Musculoskeletal Pain [facility] Forms: - Medication Reconciliation Form [facility] - Antibiotic Education paola - Prescription Opioid Use paola - Patient Portal Instructions [facility] - Leadership Thank You Letter [facility] Prescriptions: - Ibuprofen 600 mg Oral Tablet - take 1 tablet ORAL route every 6 hours As needed take with food; 30 tablet; [facility] Refills: 0, Product Selection Permitted Signatures: Dispatcher [employer] EDMicky Abreu MD MD cha Pinkerton, Shawna sp Eddleman, Michelle, RN RN me1 Tanya Granda RN RN tb4 Corrections: (The following items were deleted from the chart) 20:07 20:07 UA Rfx Reji Cult if indicated+U.LAB.BRZ ordered. EDMS EDMS 20: 20:07 Test, Urine+UC.LAB.BRZ ordered. EDMS EDMS 20: 20:07 CBC+H.LAB.BRZ ordered. EDMS EDMS 20: 20:07 COMPREHENSIVE METABOLIC PANEL+C.LAB.BRZ ordered. EDMS EDMS : 20:07 LIPASE+C.LAB.BRZ ordered. EDMS EDMS
[2025-02-13 23:17] VITALS: TEMP 98.2
[2025-02-13 23:18] VITALS: O2SAT 100
[2025-02-13 23:20] VITALS: BP 119/73
== END 2025-02-13 22:59 | disposition home or self-care (01) ==
LOC: ER 19:51
DX: R29.91 Unspecified symptoms and signs involving the musculoskeletal system (principal)
CPT/HCPCS: 36415; 71250; 74176; 80053; 81001; 81025; 83690; 85025; 96360; 99284; J7030